=== PATIENT | female | born 1990 | race Caucasian/White ===

== ENCOUNTER 2023-10-22 23:22 | Inpatient (IN) ==
--- OUTSIDE RECORDS SUMMARY | 2023-10-22 23:27 | External Medical Summary ---
Author Name Unknown Address Unknown Organization [id number]:[facility] [place] [address] [facility] [address] Laboratory Report Ordering Provider Test Date Status ANALI ALEJANDRA 09/27/2023 13:35:37 Final Observation Date Value Abnormality Reference (Units ) Status Streptococcus agalactiae DNA [Presence] in Specimen by RYAN with probe detection 09/27/2023 13:35:37 Negative Negative Final No Group B Streptococcus det ected by culture-enhanced PCR (amplified probe).
The collection of vaginal/rectal swab specimen combinations (FDA approved specimen type) is optimal for the detection of Group B Streptococcus. Single source collection (vaginal only or rectal only) or alternate specimen sources may lead to false negative results. Performing Location [facility] [place] [address] [facility] [address]
--- OUTSIDE RECORDS SUMMARY | 2023-10-22 23:27 | External Medical Summary | Summary of Care ---
Author Name Unknown Organization [facility] Address [address] [place] [address] Phone [phone] Care Team Providers Care Quality Assurance Test Program Manager Name Role Phone Yimi Melgoza MD Primary Care Provider [phone]- [phone] Reason for Visit * Reason Comments Return Visit Encounter Details Date Type Department Care Team (Late st Contact Info) Description 09/27/2023 1:45 PM EST Office Visit Gynecology/Obstetric s [facility] [address] [place] [address] Alissa Villanueva CRNP [address] [place] [address] Supervision of other normal , antepartum*; Obesity in , antepartum; Antepartum anemia complicating ; Maternal vitamin B12 deficiency Allergies Active Allergy Reactions Criticality Noted Date Comments Amoxicillin 09/27/2001 Cephalosporins Hives,Itching 09/23/2010 Doxycycline Nausea/vomiting 04/07/2022 Penicillins 01/13/2010 documented as of this encounter (statuses as of 09/27/2023) Medications Medication Sig Dispensed Refills Start Date End Date Status + DHA 27-1 & 250 MG Oral Therapy Pack Take by mouth. 0 Active Magnesium 400 MG Oral Tablet Take by mouth. 0 Active CoQ10 200 MG Oral Capsule Take by mouth. 0 Active Riboflavin 400 MG Oral Capsule Take 1 Capsule by mouth in the morning. 0 Active Vitamin B-12 1000 MCG Oral Tablet (Cyanocobalamin)Indica tions:Antepartum anemia complicating Take 1 Tablet by mouth in the morning. 30 Tablet 3 07/26/2023 Active HM Iron Slow Release 142 (45 Fe) MG Oral Tablet Extended Release (Ferrous Sulfate ER) Take by mouth. Take 4 tablets daily 0 Active Vitamin C 250 MG Oral Tablet Chewable Take 1 Tablet by mouth in the morning. 0 Active Hospital, Clinic, or Other Facility Administered Medication Ordered Dose Route Frequency Start Date End Date Status stknypaqhn-gtcsfukxgyxcx-ketw eine 50-325-40 mg per tab (Fioricet) 1 TabletIndications:Migraine without aura and without status migrainosus, not intractable 1 Tablet OR Q4H PRN 05/18/2023 Active documented as of this encounter (statuses as of 09/27/2023) Active Problems Problem Noted Date Diagnosed Date Iron deficiency anemia 09/12/2023 Antepartum anemia complicating 023 Overview: Hgb 10.1 at 27 wks, start iron BID and B12 Maternal vitamin B12 deficiency 07/26/2023 Supervision of other normal , antepartu m 03/15/2023 De Quervain's disease (tenosynovitis) 10/30/2020 Obesity in , antepartum 04/29/2020 Overview: Class II obesity (BMI 35-39.9) - growth scan q4 weeks -Early GDM screening-- checking blood sugars rather than glucola - weekly NST starting 37w Last Assessment & Plan: Discussed importace of growth ultrasound every 4 weeks. She prefers to have her US in [facility]. S/S of preeclampsia were reviewed. Umbilical hernia 04/14/2015 LUQ abdominal pain 09/20/2011 PATELLOFEMORAL PAIN SYNDROME, LEFT 06/01/2010 Pain in limb 06/01/2010 Menstruation, irregular 03/24/2010 Estimated Date of Delivery Comme nts Yes 10/25/2023 Based on last fl nstrual period of 01/18/2023 documented as of this encounter (statuses as of 09/27/2023) Resolved Problems Problem Noted Date Diagnosed Date Resolved Date Trauma during 10/21/202004/01 Antepartum anemia complicating 09/08/2020 04/18/2023 Overview: Hgb 9.5 at 28 weeks Hgb 10.3 at 32w Subluxation of symphysis pub is during in second trimester 07/06/2020 04/18/2023 Overview: Referred to PT at 19 weeks Polyp of cervix 05/28/2020 04/18/2023 Supervision of normal first 04/29/2020 04/18/2023 Overview: O+, rubella immune Last Assessment & Plan: Flu vaccine given 06/22/20 Antoinette Stevens LPN with history of infertility 04/29/2020 04/18/2023 Overview: Used letrozole Impaired glucose in , antepartum 04/29/2020 10/20/2020 Overview: Failed early 1 hr GTT, passed 3 hr GTT Last Assessment & Plan: Reviewed negative early 3hour GTT screening. Discussed the importance of performing GDM screen again at 26-28 weeks. Abdominal pain, periumbilical 04/14/2015 04/18/2023 Vomiting 09/20/2011 07/06/2020 Overview: ICD-10 update of inactive term Headache 03/24/2010 04/18/2023 Overview: ICD-10 update of inactive term documented as of this encounter (statuses as of 09/27/2023) Immunizations Name Administration Dates Next Due COVID-19 mRNA, LNP-s, No Pre serve, 2-Dose Series (Pfizer) 01/29/2021,01/04/2021 DTaP Dipth/Tet/Acell Pertussis (Infanrix), Peds 09/10/1998 HPV Vaccine, 4-Valent 06/21/2007,04/20/2007,10/03 Hepatitis B, 0-19 yrs 09/10/1998 MMR - Measles/Mumps/Rubella Vaccine 09/10/1998,0 01/08/1994 Meningococcal Conjugate Vacc ine (Menactra/Menveo) 04/20/2007 OPV - Polio Virus Vaccine (Oral) 09/10/1998 PPD 08/01/2017 Seasonal Influenza, Quadriva lent, No Preserve, IM 06/22/2020 TD, Preservative Free 08/03/2017 TDAP (age 10 and older)(Boostrix) 10/06/2020 TDAP (age 11 and older)(Adacel) 04/26/2007 Varicella Vaccine (Chicken Pox) 06/21/2007,09/10 documented as of this encounter Social History Tobacco Use Types Packs/Day Years Used Date Smoking Tobacco: Never Smokeless Tobacco: Never Alcohol Use Standard Drinks/Week Comments Not Currently 0 (1 standard drink = 0.6 oz pur e alcohol) rare PHQ-2 Answer Date Recorded PHQ Adult Total Score 0 08/08/2023 Hunger Vital Sign Answer Date Recorded Within the past 12 months, y ou worried that your food would run out before you got the money to buy more. Never true 02/23/20 23 Within the past 12 months, t he food you bought just didn't last and you didn't have money to get more. Never true 02/22/2023 [place] Depression Scale Answer Date Recorded [place] Depression Scale Total 1 09/12/2023 The thought of harming myself has occurred to me . Never 09/12/2023 Estimated Date of Delivery Comme nts Yes 10/25/2023 Based on last me nstrual period of 01/18/2023 Sex and Gender Information Value Date Recorded Sex Assigned at Female 02/22/2023 7:54 PM EDT Gender Identity Female 02/22/2023 7:54 PM EDT Sexual Orientation Straight 03/05/2021 3: 49 PM EDT Job Start Date Occupation Industry Not on file Not on file Not on file documented as of this encounter Last Filed Vital Signs Vital Sign Reading Time Taken Comments Blood Pressure 112/70 09/27/2023 1:06 PM EST Pulse - - Temperature - - Respiratory Rate - - Oxygen Saturation - - Inhaled Oxygen Concentration - - Weight 101 kg (222 lb 9.6 oz) 09/27/2023 1:06 PM EST Height 162.6 cm (5' 4") 09/27/2023 1:06 PM EST Body Mass Index 38.21 09/27/2023 1:06 PM EST documented in this encounter Progress Notes * Alissa Villanueva CRNP - 09/27/2023 1:27 PM EST 36w0d Complaints: none. Surprised at weight gain, reassured this is ok. Feeling well overall. Iron infusions helping SOB. Has seen cardiology, has echo tomorrow. . Good FM. No contractions, bleeding, or LOF. Growth u/s today, report pending. GBS today. 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 Name of russian rubber: Isamar. To begin weekly NSTs next week. MARBE[place]A Marx documented in this encounter Nursing Notes * Isamar Cruz LPN - 09/27/2023 1:06 PM EST 36w0d GBS. Growth US done today- 57th%, MORENA 14.4cm. documented in this encounter Plan of Treatment Upcoming Encounters Date Type Department Care Team (Late st Contact Info) Description 09/28/2023 10:35 AM EST Cardiac Studies Cardiac Studies, [facility] [address] [place] [address] 10/03/2023 2:30 PM EST Hem/Onc Treatment Hematology/Oncology Treatment, [place] [address] [place] [address] Liza, Chair 8 Hem [place]c [facility] [address] [facility] [place] [address] 10/10/2023 9:45 AM EST Pharmacy Pharmacy, [place] [address] [place] [address] Clinic, [facility] [address] [place] [address] Pending Results Name Type Priority Associated Diagnoses Date /Time GROUP B STREP CULTURE/PCR Lab Routine Supervision of other normal , antepartum 09/27/2023 1:35 PM EST Health Maintenance Due Date Last Done Comments Hepatitis B (3 of 3 - 3-dose series) 11/05/1998 09/10/1998, 05/28/1997 COVID-19 Vaccine (3 - season) 2023 01/29/2021, 01/04/2021 Influenza Vaccine (FLU shot) (#1) 2023 10/06/2021, 06/22/2020, 06/22/2020 Depression Screening 08/08/2024 08/08/2023 Pap Smear 03/15/2026 03/15/2023, 04/02, 11/18/2013, Additional history exists Cervical Cancer Screening 03/15/2028 HPV/Co-Test 03/15/2028 03/15/2023 DTaP,Tdap,and Td Vaccines (9 - Td or Tdap) 10/06/2030 10/06/2020, 08/03/2017, 04/26/2007, Additional history exists MENINGOCOCCAL (MENACTRA/MENVEO) Aged Out 04/20/2007, 04/20/2007 No longer eligibl e based on patient's age to complete this topic GARDASIL-HPV IMMUNIZATION SERIES Completed 06/21/2007, 04/20/2007, 10/30/2006 Pneumococcal Vaccine: Pediatrics (0 to 5 Years) and At-Risk Patients (6 to 64 Years) Aged Out No longer eligible based on patient's age to complete this topic documented as of this encounter Medical Devices Not on filedocumented as of this encounter Visit Diagnoses Diagnosis Supervision of other normal , antepartum- Primary Obesity in , antepartum Obesity complicating , childbirth, or the puerperium, antepartum condition or complication Antepartum anemia complicating Anemia, antepartum Maternal vitamin B12 deficiency documented in this encounter Care Teams Quality Assurance Test Program Manager Relationship Specialty Start Date End Date Yimi Melgoza MD [address] [place] [address] PCP - General 02/03/10 documented as of this encounter
--- OUTSIDE RECORDS SUMMARY | 2023-10-22 23:27 | External Medical Summary | Summary of Care ---
Author Name Unknown Organization [facility] Address [address] [place] [address] Phone [phone] Care Team Providers Care Data Typist Name Role Phone Yimi Melgoza MD Primary Care Provider [phone]- [phone] Reason for Visit * Reason Onset Date Comments Appointment 09/13/2023 Encounter Details Date Type Department Care Team (Late st Contact Info) Description 09/13/2023 Telephone Hematology/Oncology Treatment, [place] [address] [place] [address] Alex Shah MD [address] [place] [address] Appointment Allergies Active Allergy Reactions Criticality Noted Date Comments Amoxicillin 09/27/2001 Cephalosporins Hives,Itching 09/23/2010 Doxycycline Nausea/vomiting 04/07/2022 Penicillins 01/13/2010 documented as of this encounter (statuses as of 09/15/2023) Medications Medication Sig Dispensed Refills Start Date [...] Route Frequency Start Date End Date Status mskokxjbpw-kvwmxkspeewgv-qdzz eine 50-325-40 mg per tab (Fioricet) 1 TabletIndications:Migraine without aura and without status migrainosus, not intractable 1 Tablet OR Q4H PRN 05/18/2023 Active documented as of this encounter (statuses as of 09/15/2023) Active Problems Problem Noted Date Diagnosed Date [...] She prefers to have her US in [facility]. S/S of preeclampsia were reviewed. Umbilical hernia 04/14/2015 LUQ abdominal pain 09/20/2011 PATELLOFEMORAL PAIN SYNDROME, LEFT 06/01/2010 Pain in limb 06/01/2010 Menstruation, irregular 03/24/2010 Estimated Date of Delivery Comme nts Yes 10/25/2023 Based on last me nstrual period of 01/18/2023 documented as of this encounter (statuses as of 09/15/2023) Resolved Problems Problem Noted Date Diagnosed Date [...] as of this encounter (statuses as of 09/15/2023) Immunizations Name Administration Dates Next Due COVID-19 mRNA, LNP-s, No Pre serve, 2-Dose Series (Pfizer) 01/29/2021,01/04/2021 DTaP Dipth/Tet/Acell Pertussis (Infanrix), Peds 09/10/1998,07/18/1994,04/01/1993,12/22,1992 HIB PRP-T, 4 dose (ActHib) 01/03/1994,,1992,10/28 HPV Vaccine, 4-Valent 06/21/2007,04/20/2007,10/03 Hepatitis B, 0-19 yrs 09/10/1998,05/28/1997 MMR - Measles/Mumps/Rubella Vaccine 09/10/1998,0 01/08/1994,01/03/1994 Meningococcal Conjugate Vacc ine (Menactra/Menveo) 04/20/2007 OPV - Polio Virus Vaccine (Oral) 998,07/18/1994,1992,10/28 PPD 08/01/2017 Seasonal Influenza, Quadriva lent, No Preserve, IM 06/22/2020 TB Rachel Test 08/02/1993 TD, Preservative Free 08/03/2017 TDAP (age 10 [...] money to get more. Never true 02/22/2023 [place] Depression Scale Answer Date Recorded [place] Depression Scale Total 1 09/12/2023 The thought [...] on file documented as of this encounter Miscellaneous Notes * Telephone Encounter - Gala Singh OSA - 09/14/2023 12:26 PM EST Patient returned call and scheduled venofer for 09/18 per her request. * Telephone Encounter - Gala Singh OSA - 09/14/2023 12:01 PM EST Called and lmom for patient. * Telephone Encounter - Ever Gleason RN - 09/14/2023 11:53 AM EST [place] plan signed. Scheduling- Please schedule patient for 2 hour appt "Venofer 10/04" (Pablo). Patient will receive oneinfusion weekly x 3 weeks. Thank you. * Telephone Encounter - Ever Gleason RN - 09/13/2023 11:17 AM EST [place] plan for IV Venofer completed. Routed for signature. Prior auth not needed for IV Venofer. Can send to scheduling once plan is signed. documented in this encounter Plan of Treatment Upcoming Encounters Date Type Department Care Team (Late st Contact Info) Description 09/15/2023 2:00 PM EST Office Visit Cardiology, [facility] [address] [place] [address] Fabian Ferreira, [address] [place] [address] 09/18/2023 1:45 PM EST Hem/Onc Treatment Hematology/Oncology Treatment, [place] [address] [place] [address] Liza Chair 5 Hem Onc [place] [address] [place] [address] 09/19/2023 10:00 AM EST Pharmacy Pharmacy, [place] [address] [place] [facility] [place] [address] Clinic, [facility] [address] [place] [address] 09/27/2023 12:45 PM EST Imaging Radiology [facility] 2nd Floor, [place] [address] [place] [address] 09/27/2023 1:45 PM EST Office Visit Gynecology/Obstetrics [facility] [address] [place] [address] Alissa Villanueva CRNP [address] [place] [address] Health Maintenance Due Date Last Done Comments Hepatitis B (3 of 3 - 3-dose series) 11/05/1998 09/10/1998, 05/28/1997 COVID-19 Vaccine ( season) 2023 01/29/2021, 01/04/2021 Influenza Vaccine (FLU [...] Not on filedocumented as of this encounter Care Teams Data Typist Relationship Specialty Start Date End Date Yimi Melgoza MD [address] [place] [address] PCP - General 02/03/10 documented as of this encounter
--- OUTSIDE RECORDS SUMMARY | 2023-10-22 23:27 | External Medical Summary | Summary of Care ---
Author Name Unknown Organization [facility] Address [address] [place] [address] Phone [phone] Care Team Providers Care Resident Athletic Trainer Name Role Phone Yimi Melgoza MD Primary Care Provider +1- [phone] Reason for Visit * Reason Comments Infusion Venofer 2/3 Encounter Details Date Type Department Care Team (Latest Contact Info) Description 09/26/2023 2:30 PM EST Hem/Onc Treatment Hematology/Oncology Treatment, [place] [address] [place] [address] Liza, Chair 7 Hem Onc [place] [address] [place] [address] Antepartum anemia complicating * Allergies Active Allergy Reactions Criticality Noted Date Comments Amoxicillin 09/27/2001 Cephalosporins Hives,Itching 09/23/2010 Doxycycline Nausea/vomiting 04/07/2022 Penicillins 01/13/2010 documented as of this encounter (statuses as of 09/26/2023) Medications Medication Sig Dispensed Refills Start Date [...] Route Frequency Start Date End Date Status nwukvramfh-slktpxeesttoh-iioq eine 50-325-40 mg per tab (Fioricet) 1 TabletIndications:Migraine without aura and without status migrainosus, not intractable 1 Tablet OR Q4H PRN 05/18/2023 Active documented as of this encounter (statuses as of 09/26/2023) Active Problems Problem Noted Date Diagnosed Date [...] She prefers to have her US in [facility]. S/S of preeclampsia were reviewed. Umbilical hernia 04/14/2015 LUQ abdominal pain 09/20/2011 PATELLOFEMORAL PAIN SYNDROME, LEFT 06/01/2010 Pain in limb 06/01/2010 Menstruation, irregular 03/24/2010 Estimated Date of Delivery Comme nts Yes 10/25/2023 Based on last me nstrual period of 01/18/2023 documented as of this encounter (statuses as of 09/26/2023) Resolved Problems Problem Noted Date Diagnosed Date [...] as of this encounter (statuses as of 09/26/2023) Immunizations Name Administration Dates Next Due COVID-19 mRNA, LNP-s, No Pre serve, 2-Dose Series (Nuubo) 01/29/2021,01/04/2021 DTaP Dipth/Tet/Acell Pertussis (Infanrix), Peds 09/10/1998 [...] money to get more. Never true 02/22/2023 [place] Depression Scale Answer Date Recorded [place] Depression Scale Total 1 09/12/2023 The thought [...] Sign Reading Time Taken Comments Blood Pressure 125/76 09/26/2023 2:48 PM EST Pulse 92 09/26/2023 2:48 PM EST Temperature 36.7 C (98 F) 09/26/2023 2:48 PM EST Respiratory Rate 18 09/26/2023 2:48 PM EST Oxygen Saturation 97% 09/26/2023 2:48 PM EST Inhaled Oxygen Concentration - - Weight - - Height - - Body Mass Index - - documented in this encounter Nursing Notes * Yamileth Sorensen RN - 09/26/2023 4:12 PM EST Safety and Risk for Injury Patient will remain free from injury. Ensure appropriate safety devices are available. Provide and maintain safe environment. Goals: Patient will remain free from injury. Possible barriers to meeting goals: ambulating with IV pole Stability of the patient: Moderately stable - low risk of patient condition declining or worsening Summary regarding today's goals: Met: pt remained free of harm today Patient tolerated treatment well without any acute issues or problems. Patient left facility in stable condition and denied any further needs. * Zandra Weaver LPN - 09/26/2023 2:48 PM EST 1435: Pt arrived for Venofer 2/3 infusion. PIV in R metacarpal. Pt tolerated well. VSS. No complaints at this time. documented in this encounter Plan of Treatment Upcoming Encounters Date Type Department Care Team (Late st Contact Info) Description 09/27/2023 12:45 PM EST Imaging Radiology [facility] 2nd Floor, [place] [address] [facility] [place] [address] 09/27/2023 1:45 PM EST Office Visit Gynecology/Obstetrics [address] [place] [address] Alissa Villanueva CRNP [address] [facility] [place] [address] 09/28/2023 10:35 AM EST Cardiac Studies Cardiac Studies, [facility] [address] [facility] [place] [address] 10/03/2023 2:30 PM EST Hem/Onc Treatment Hematology/Oncology Treatment, [place] [address] [place] [address] Liza, Chair 8 Hem Onc [place] [address] [place] [address] 10/10/2023 9:45 AM EST Pharmacy Pharmacy, [place] [address] [place] [address] Clinic, [facility] [address] [place] [address] Health Maintenance Due Date Last Done Comments Hepatitis B (3 of 3 - 3-dose series) 11/05/1998 09/10/1998, 05/28/1997 COVID-19 Vaccine (3 - 2022- season) 2023 01/29/2021, 01/04/2021 Influenza Vaccine (FLU [...] as of this encounter Visit Diagnoses Diagnosis Antepartum anemia complicating - Primary Anemia, antepartum documented in this encounter Administered Medications Active Administered Medications - up to 3 most recent administrations Medication Order MAR Action Action Date Dose Rate Site diphenhydrAMINE (Benadryl) inj 50 mg 50 mg, IV Push, ONCE PRN Other, Hypersensitivity Reaction, Starting on Mon09/26/23 at 1439, Until Mon09/27/23 at 1438, For 24 hours EPINEPHrine 1 MG/ML inj 0.3 mg 0.3 mg, Intramuscular, ONCE PRN Other, Hypersensitivity Reaction or Anaphylaxis, Starting on Mon09/26/23 at 1439, Until Mon09/27/23 at 1438, For 24 hours hEParin 100 UNIT/ML Lock Flush inj 500 Units 500 Units (5 mL), IV Lock, PRN Other, IV Flush, Starting on Mon09/26/23 at 1439, Until Mon09/27/23 at 1438, For 24 hours, Do not flush if lock, PICC, or central line not in place; IV infusing or unable to flush. Hydrocortisone Sod Suc (PF) (Solu-Cortef) inj 100 mg 100 mg, IV Push, ONCE PRN Other, Hypersensitivity Reaction, Starting on Mon09/26/23 at 1439, Until Mon09/27/23 at 1438, For 24 hours NSS infusion 500 mL, Intravenous, at 50 mL/hr, CONTINUOUS, Starting on Mon09/26/23 at 1545, Until Mon09/27/23 at 0144 Start Infusion 09/26/2023 2:39 PM EST 500 mL 50 mL/hr oxygen GAS Inhalation, OXYGEN, First dose on Mon09/26/23 at 1600, Until Discontinued, Device/Managed by: Low Flow Device, Goal SPO2 (%): 91-95, Starting Device: Nasal Cannula, Initial Flow Rate (LPM): 2, Lowest Support: Nasal Cannula: Flow 0-6 LPM. Titrate up/down by 1 LPM., Higher Support: Non-Rebreather (NRB) Mask: Minimum of 10 LPM. Titrate to maintain bag inflation., Titration Interval: Q2 minutes and as needed., Notify Provider: For sudden DECREASE in resting SPO2 to less than 85% and when escalating delivery device., Wean patient off Oxygen when the oxygen saturation is greater than or equal to 93% sodium chloride 0.9 % flush central line 10 mL 10 mL, IV Push, PRN Other, IV Flush, Starting on Mon09/26/23 at 1439, Until Mon09/27/23 at 1438, For 24 hours, Do not flush if lock, PICC, or central line not in place; IV infusing or unable to flush. Inactive Administered Medications - up to 3 most recent administrations Medication Order MAR Action Action Date Dose Rate Site Iron Sucrose (Venofer) 300 mg in NSS 250 mL ivpb 300 mg, IV Piggyback, ONCE, 1 dose, On Mon09/26/23 at 1615, Administer over 90 Minutes Start Infusion 09/26/2023 2:40 PM EST 300 mg 166.67 mL/hr documented in this encounter Care Teams Resident Athletic Trainer Relationship Specialty Start Date End Date Yimi Melgoza MD [address] [place] [address] PCP - General 02/03/10 documented as of this encounter
--- OUTSIDE RECORDS SUMMARY | 2023-10-22 23:27 | External Medical Summary | Summary of Care ---
Author Name Unknown Organization [facility] Address [address] [place] [address] Phone [phone] Care Team Providers Care Lead Designer Name Role Phone Yimi Melgoza MD Primary Care Provider +1- [phone] Reason for Visit * Reason Onset Date Comments Anemia Follow-Up 10/11/2023 Encounter Details Date Type Department Care Team (Late st Contact Info) Description 10/11/2023 10:00 AM [facility] Pharmacy Pharmacy, [place] [address] [place] [address] Clinic, Anemia [address] [place] [address] Iron deficiency anemia, unspecified iron deficiency anemia type* Allergies Active Allergy Reactions Criticality Noted Date Comments Amoxicillin 09/27/2001 Cephalosporins Hives,Itching 09/23/2010 Doxycycline Nausea/vomiting 04/07/2022 Penicillins 01/13/2010 documented as of this encounter (statuses as of 10/11/2023) Medications Medication Sig Dispensed Refills Start Date [...] Route Frequency Start Date End Date Status qqywppsmtm-smvrblzycvdog-jxgo eine 50-325-40 mg per tab (Fioricet) 1 TabletIndications:Migraine without aura and without status migrainosus, not intractable 1 Tablet OR Q4H PRN 05/18/2023 Active documented as of this encounter (statuses as of 10/11/2023) Active Problems Problem Noted Date Diagnosed Date [...] She prefers to have her US in [facility]. S/S of preeclampsia were reviewed. Umbilical hernia 04/14/2015 LUQ abdominal pain 09/20/2011 PATELLOFEMORAL PAIN SYNDROME, LEFT 06/01/2010 Pain in limb 06/01/2010 Menstruation, irregular 03/24/2010 Estimated Date of Delivery Comme nts Yes 10/25/2023 Based on last me nstrual period of 01/18/2023 documented as of this encounter (statuses as of 10/11/2023) Resolved Problems Problem Noted Date Diagnosed Date [...] as of this encounter (statuses as of 10/11/2023) Immunizations Name Administration Dates Next Due COVID-19 mRNA, LNP-s, No Pre serve, 2-Dose Series (Medcurrent) 01/29/2021,01/04/2021 DTaP Dipth/Tet/Acell Pertussis (Infanrix), Peds 09/10/1998 [...] money to get more. Never true 02/22/2023 [place] Depression Scale Answer Date Recorded [place] Depression Scale Total 1 09/12/2023 The thought [...] on file documented as of this encounter Progress Notes * Jaimie Eugene, [facility] - 10/11/2023 3:24 PM EST Patient Phone Numbers Call to patient. Patient received Venofer 300 mg x 3 on 09/18, 09/26 and 10/03. LMOVM. GA: 38w0d Estimated Date of Delivery: 10/25/23 Given proximity to patient's due date, will not repeat any additional lab work. Anemia Clinic will sign off. Thank you for allowing us to participate in the care of this patient. Thanks, Jaimie Eugene [facility] Clinical Pharmacist [facility] Anemia Clinic (P: [phone]) 10/11/2023 3:24 PM documented in this encounter Plan of Treatment Upcoming Encounters Date Type Department Care Team (Late st Contact Info) Description 10/17/2023 1:45 PM EST Office Visit Gynecology/Obstetrics [facility] [address] [place] [address] Alissa Villanueva CRNP [address] [place] [address] Jacob, Non Stress Tests [facility] [address] [place] [address] 10/23/2023 9:45 AM EST Office Visit Gynecology/Obstetrics [facility] [address] [place] [address] Alissa Villanueva CRNP [address] [place] [address] Jacob Non Stress Tests Kenn [address] [place] [address] Health Maintenance Due Date Last Done Comments Hepatitis B (3 of 3 - 3-dose series) 11/05/1998 09/10/1998, 05/28/1997 COVID-19 Vaccine ( season) 2023 01/29/2021, 01/04/2021 Influenza Vaccine (FLU shot) (#1) 2023 10/06/2021, 06/22/2020, 06/22/2020 Depression Screening 08/08/2024 08/08/2023 Pap Smear 03/15/2026 03/15/2023, 0706/2020, 11/18/2013, Additional history exists Cervical Cancer Screening [...] as of this encounter Visit Diagnoses Diagnosis Iron deficiency anemia, unspecified iron deficiency anemia type- Primary documented in this encounter Care Teams Lead Designer Relationship Specialty Start Date End Date Yimi Melgoza MD [address] [place] [address] PCP - General 02/03/10 documented as of this encounter
--- OUTSIDE RECORDS SUMMARY | 2023-10-22 23:27 | External Medical Summary | Summary of Care ---
Author Name Unknown Organization [facility] Address [address] [place] [address] Phone [phone] Care Team Providers Care Shrimp Boat Captain Name Role Phone Yimi Melgoza MD Primary Care Provider +1- [phone] Reason for Visit * Reason Comments Return Visit Non Stress Test Encounter Details Date Type Department Care Team (Late st Contact Info) Description 10/05/2023 10:30 AM EST Office Visit Gynecology/Obstetric s [facility] [address] [facility] [place] [address] Luann Ayoub CRNP [address] [facility] [place] [address] Jacob Non Stress Tests Kenn [address] [place] [address] Supervision of other normal , antepartum*; Obesity in , antepartum; Antepartum anemia complicating ; Maternal vitamin B12 deficiency Allergies Active Allergy Reactions Criticality Noted Date Comments Amoxicillin 09/27/2001 Cephalosporins Hives,Itching 09/23/2010 Doxycycline Nausea/vomiting 04/07/2022 Penicillins 01/13/2010 documented as of this encounter (statuses as of 10/05/2023) Medications Medication Sig Dispensed Refills Start Date [...] Route Frequency Start Date End Date Status luvpkiuwjg-sukepxpebhrzn-hwgo eine 50-325-40 mg per tab (Fioricet) 1 TabletIndications:Migraine without aura and without status migrainosus, not intractable 1 Tablet OR Q4H PRN 05/18/2023 Active documented as of this encounter (statuses as of 10/05/2023) Active Problems Problem Noted Date Diagnosed Date [...] She prefers to have her US in [facility]. S/S of preeclampsia were reviewed. Umbilical hernia 04/14/2015 LUQ abdominal pain 09/20/2011 PATELLOFEMORAL PAIN SYNDROME, LEFT 06/01/2010 Pain in limb 06/01/2010 Menstruation, irregular 03/24/2010 Estimated Date of Delivery Comme nts Yes 10/25/2023 Based on last fl nstrual period of 01/18/2023 documented as of this encounter (statuses as of 10/05/2023) Resolved Problems Problem Noted Date Diagnosed Date [...] as of this encounter (statuses as of 10/05/2023) Immunizations Name Administration Dates Next Due COVID-19 mRNA, LNP-s, No Pre serve, 2-Dose Series (Impinj) 01/29/2021,01/04/2021 DTaP Dipth/Tet/Acell Pertussis (Infanrix), Peds 09/10/1998 [...] money to get more. Never true 02/22/2023 [place] Depression Scale Answer Date Recorded [place] Depression Scale Total 1 09/12/2023 The thought [...] Sign Reading Time Taken Comments Blood Pressure - - Pulse - - Temperature - - Respiratory Rate - - Oxygen Saturation - - Inhaled Oxygen Concentration - - Weight 100.9 kg (222 lb 6.4 oz) 01/04/2 024 10:27 AM EST Height - - Body Mass Index 38.17 09/27/2023 1:06 PM EST documented in this encounter Progress Notes * Luann Ayoub CRNP - 10/05/2023 10:18 AM EST 37w1d Baby moving well. Some occasional tightening, no regular ctx. Denies leaking/bleeding. Growth scan 09/27: EFW 57th %ile, vertex, normal MORENA. Receiving iron infusions for anemia, these have helped her SOB. Had a normal cardiology evaluation. Weekly visits and NSTs. MARBELLA Chavira ASSESSMENT assessment with Non-stress Test completed on 10/05/2023 at 37w1d gestation for indication of obesity heart baseline: 135 bpm Variability: Moderate Decelerations: absent Accelerations: present Contractions: Present q4-5 mins, mild per pt NST start time: 1022 NST stop time: 1058 NST strip reviewed, interpreted, and approved by OB provider, MARBELLA Chavira . NST strip stored in clinic storage file documented in this encounter Plan of Treatment Upcoming Encounters Date Type Department Care Team (Late st Contact Info) Description 10/10/2023 9:45 AM EST Pharmacy Pharmacy, [place] [address] [place] [address] Clinic, Anemia [address] [place] [address] 10/10/2023 11:15 AM EST Office Visit Gynecology/Obstetrics [facility] [address] [place] [address] Luann Ayoub CRNP [address] [place] [address] Clara James Stress Tests Kenn [address] [place] [address] 10/17/2023 1:45 PM EST Office Visit Gynecology/Obstetrics Phil [facility] [address] [place] [address] Alissa Villanueva CRNP [address] [place] [address] Jacob, Non Stress Tests Kenn [address] [place] [address] 10/23/2023 9:45 AM EST Office Visit Gynecology/Obstetrics Phil [facility] [address] [place] [address] Alissa Villanueva CRNP [address] [place] [address] Jacob, Non Stress Tests Kenn [address] [place] [address] Health Maintenance Due Date Last Done Comments [...] deficiency documented in this encounter Care Teams Shrimp Boat Captain Relationship Specialty Start Date End Date Yimi Melgoza MD [address] [place] [address] PCP - General 02/03/10 documented as of this encounter
--- OUTSIDE RECORDS SUMMARY | 2023-10-22 23:27 | External Medical Summary | Summary of Care ---
Author Name Unknown Organization [facility] Address [address] [place] [address] Phone [phone] Care Team Providers Care Coach Wirer Name Role Phone Yimi Melgoza MD Primary Care Provider +1- [phone] Reason for Visit * Reason Onset Date Comments Appointment 09/13/2023 Encounter Details Date Type Department Care Team (Late st Contact Info) Description 09/13/2023 Telephone Hematology/Oncology Treatment, [place] [address] [place] [address] Alex Shah MD [address] [place] [address] Appointment Allergies Active Allergy Reactions Criticality Noted Date Comments Amoxicillin 09/27/2001 Cephalosporins Hives,Itching 09/23/2010 Doxycycline Nausea/vomiting 04/07/2022 Penicillins 01/13/2010 documented as of this encounter (statuses as of 09/14/2023) Medications Medication Sig Dispensed Refills Start Date [...] Route Frequency Start Date End Date Status hlugjrlfuc-bhqoeeoynznzj-djgu eine 50-325-40 mg per tab (Fioricet) 1 TabletIndications:Migraine without aura and without status migrainosus, not intractable 1 Tablet OR Q4H PRN 05/18/2023 Active documented as of this encounter (statuses as of 09/14/2023) Active Problems Problem Noted Date Diagnosed Date [...] She prefers to have her US in [facility]. S/S of preeclampsia were reviewed. Umbilical hernia 04/14/2015 LUQ abdominal pain 09/20/2011 PATELLOFEMORAL PAIN SYNDROME, LEFT 06/01/2010 Pain in limb 06/01/2010 Menstruation, irregular 03/24/2010 Estimated Date of Delivery Comme nts Yes 10/25/2023 Based on last me nstrual period of 01/18/2023 documented as of this encounter (statuses as of 09/14/2023) Resolved Problems Problem Noted Date Diagnosed Date [...] as of this encounter (statuses as of 09/14/2023) Immunizations Name Administration Dates Next Due COVID-19 [...] money to get more. Never true 02/22/2023 [place] Depression Scale Answer Date Recorded [place] Depression Scale Total 1 09/12/2023 The thought [...] Gleason RN - 09/14/2023 11:53 AM EST [place] plan signed. Scheduling- Please schedule patient for 2 hour appt "Venofer 10/04" (Pablo). Patient will receive oneinfusion weekly x 3 weeks. Thank you. * Telephone Encounter - Ever Gleason RN - 09/13/2023 11:17 AM EST [place] plan for IV Venofer completed. Routed for signature. Prior auth not needed for IV Venofer. Can send to scheduling once plan is signed. documented in this encounter Plan of Treatment Upcoming Encounters Date Type Department Care Team (Late st Contact Info) Description 09/15/2023 2:00 PM EST Office Visit Cardiology, [facility] [address] [place] [address] Fabian Ferreira, [address] [place] [address] 09/18/2023 1:45 PM EST Hem/Onc Treatment Hematology/Oncology Treatment, [place] [address] [place] [address] Liza Chair 5 Hem Onc [place] [address] [place] [address] 09/19/2023 10:00 AM EST Pharmacy Pharmacy, [place] [address] [place] [facility] [place] [address] Clinic, [facility] [place] [address] [place] [address] 09/27/2023 12:45 PM EST Imaging Radiology [facility] 2nd Floor, [place] [address] [place] [address] 09/27/2023 1:45 PM EST Office Visit Gynecology/Obstetrics [facility] [address] [place] [address] Alissa Villanueva CRNP [address] [place] [address] Health Maintenance Due Date Last Done Comments [...] filedocumented as of this encounter Care Teams Coach Wirer Relationship Specialty Start Date End Date Yimi Melgoza MD [address] [place] [address] PCP - General 02/03/10 documented as of this encounter
--- OUTSIDE RECORDS SUMMARY | 2023-10-22 23:27 | External Medical Summary | Summary of Care ---
Author Name Unknown Organization [facility] Address [address] [place] [address] Phone [phone] Care Team Providers Care Customer Security Clerk Name Role Phone Yimi Melgoza MD Primary Care Provider +1- [phone] Reason for Visit * Reason Onset Date Comments Anemia Follow-Up 09/19/2023 Encounter Details Date Type Department Care Team (Late st Contact Info) Description 09/19/2023 10:00 AM [facility] Pharmacy Pharmacy, [place] [address] [place] [address] Clinic, Anemia [address] [place] [address] Iron deficiency anemia, unspecified iron deficiency anemia type* Allergies Active Allergy Reactions Criticality Noted Date Comments Amoxicillin 09/27/2001 Cephalosporins Hives,Itching 09/23/2010 Doxycycline Nausea/vomiting 04/07/2022 Penicillins 01/13/2010 documented as of this encounter (statuses as of 09/19/2023) Medications Medication Sig Dispensed Refills Start Date [...] Route Frequency Start Date End Date Status sprhmctkbk-oktcgejaxdkjt-ojal eine 50-325-40 mg per tab (Fioricet) 1 TabletIndications:Migraine without aura and without status migrainosus, not intractable 1 Tablet OR Q4H PRN 05/18/2023 Active documented as of this encounter (statuses as of 09/19/2023) Active Problems Problem Noted Date Diagnosed Date [...] She prefers to have her US in [facility]. S/S of preeclampsia were reviewed. Umbilical hernia 04/14/2015 LUQ abdominal pain 09/20/2011 PATELLOFEMORAL PAIN SYNDROME, LEFT 06/01/2010 Pain in limb 06/01/2010 Menstruation, irregular 03/24/2010 Estimated Date of Delivery Comme nts Yes 10/25/2023 Based on last me nstrual period of 01/18/2023 documented as of this encounter (statuses as of 09/19/2023) Resolved Problems Problem Noted Date Diagnosed Date [...] as of this encounter (statuses as of 09/19/2023) Immunizations Name Administration Dates Next Due COVID-19 mRNA, LNP-s, No Pre serve, 2-Dose Series (Koemei) 01/29/2021,01/04/2021 DTaP Dipth/Tet/Acell Pertussis (Infanrix), Peds 09/10/1998 [...] money to get more. Never true 02/22/2023 [place] Depression Scale Answer Date Recorded [place] Depression Scale Total 1 09/12/2023 The thought [...] this encounter Progress Notes * Jaimie Eugene, [facility] - 09/19/2023 9:28 AM EST Patient received first dose of Venofer 300 mg x 3 repletion series on 09/18 and appeared to have tolerated it without issue. Next scheduled: 09/26 Scheduled to be completed: 10/03 GA: 34w6d Estimated Date of Delivery: 10/25/23 Follow-up after completion of series to ensure all doses are administered prior to delivery. Anemia Clinic will continue to follow. Thank you for allowing us to participate in the care of thispatient. Thanks, Jaimie Eugene [facility] Clinical Pharmacist [facility] Anemia Clinic (P: [phone]) 09/19/2023 9:28 AM documented in this encounter Plan of Treatment Upcoming Encounters Date Type Department Care Team (Late st Contact Info) Description 09/26/2023 2:30 PM EST Hem/Onc Treatment Hematology/Oncology Treatment, [place] [facility] [address] Liza, Chair 11 Hem Onc [address] [place] [address] 09/27/2023 12:45 PM EST [facility] [address] [facility] [place] [address] 09/27/2023 1:45 PM EST Office Visit Gynecology/Obstetrics [facility] [address] [place] [address] Alissa Villanueva CRNP 132 [facility] [place] [address] 09/28/2023 10:35 AM EST Cardiac Studies Cardiac Studies, [facility] [address] [place] [address] 10/03/2023 2:30 PM EST Hem/Onc Treatment Hematology/Oncology [address], [address] [address] Liza, Chair 8 Hem Onc [address] [place] [address] 10/10/2023 9:45 AM EST Pharmacy Pharmacy, [place] [address] [place], [place] [address] Clinic, Anemia [address] [place] [address] Health Maintenance Due Date Last Done Comments Hepatitis B (3 of 3 - 3-dose series) 11/05/1998 09/10/1998, 05/28/1997 COVID-19 Vaccine (3 - 2022-24 season) 2023 01/29/2021, 01/04/2021 Influenza Vaccine (FLU [...] Primary documented in this encounter Care Teams Customer Security Clerk Relationship Specialty Start Date End Date Yimi Melgoza MD [address] [place] [facility] [place] [address] PCP - General 02/03/10 documented as of this encounter
--- OUTSIDE RECORDS SUMMARY | 2023-10-22 23:27 | External Medical Summary | Summary of Care ---
Author Name Unknown Organization [facility] Address [address] [place] [address] Phone [phone] Care Team Providers Care Personal Service Representative Name Role Phone Yimi Melgoza MD Primary Care Provider +1- [phone] Reason for Visit * Reason Comments Return Visit Encounter Details Date Type Department Care Team (Late st Contact Info) Description 09/27/2023 1:45 PM EST Office Visit Gynecology/Obstetric s [facility] [address] [place] [address] Alissa Villanueva CRNP [address] [place] [address] Supervision of other normal , antepartum*; Obesity [...] Route Frequency Start Date End Date Status yvovyfsjbp-kbcomwepqdlxb-mecd eine 50-325-40 mg per tab (Fioricet) 1 [...] She prefers to have her US in [facility]. S/S of preeclampsia were reviewed. Umbilical hernia 04/14/2015 LUQ abdominal pain 09/20/2011 PATELLOFEMORAL PAIN SYNDROME, LEFT 06/01/2010 Pain in limb 06/01/2010 Menstruation, irregular 03/24/2010 Estimated Date of Delivery Comme nts Yes 10/25/2023 Based on last la nstrual period of 01/18/2023 documented as of [...] money to get more. Never true 02/22/2023 [place] Depression Scale Answer Date Recorded [place] Depression Scale Total 1 09/12/2023 The thought [...] Growth u/s today, report pending. GBS today. Storekeeper Engineering Documentation Provider requested pellet mill operator. Name of pellet mill operator: Isamar. To begin weekly NSTs next week. [place]BELL[place] Marx documented in this encounter Nursing Notes * Isamar Cruz LPN - 09/27/2023 1:06 PM EST 36w0d GBS. Growth US done today- 57th%, MORENA 14.4cm. documented in this encounter Plan of Treatment Upcoming Encounters Date Type Department Care Team (Late st Contact Info) Description 09/28/2023 10:35 AM EST Cardiac Studies Cardiac Studies, [place] [address] [facility] [place] [address] 10/03/2023 2:30 PM EST Hem/Onc Treatment Hematology/Oncology Treatment, [place] [address] [place] [address] Liza, Chair 8 Hem Onc [facility] [address] [facility] [address] 10/05/2023 11:45 AM EST Office Visit Gynecology/Obstetrics Phil [facility] [address] [facility] [place] [address] Alissa Villanueva CRNP 132 [facility] [place] [address] James, Non Stress Tests Kenn [address] [place] [address] 10/10/2023 9:45 AM EST Pharmacy Pharmacy, [place] [address] [place] [address] Clinic, [facility] [address] [place] [facility] [place] [address] 10/10/2023 11:15 AM EST Office Visit Gynecology/Obstetrics [facility] [address] [place] [address] Luann Ayoub CRNP [address] [place] [address] Jacob Non Stress Tests Kenn [address] [place] [address] 10/17/2023 1:45 PM EST Office Visit Gynecology/Obstetrics [facility] [address] [place] [address] Alissa Villanueva CRNP [address] [place] [address] Jacob Non Stress Tests Kenn [address] [place] [address] 10/23/2023 9:45 AM EST Office Visit Gynecology/Obstetrics [facility] [address] [place] [address] Alissa Villanueva CRNP [address] [place] [address] Jacob, Non Stress Tests Kenn [address] [place] [address] Pending Results Name Type Priority Associated Diagnoses [...] deficiency documented in this encounter Care Teams Personal Service Representative Relationship Specialty Start Date End Date Yimi Melgoza MD [address] [place] [address] PCP - General 02/03/10 documented as of this encounter
--- OUTSIDE RECORDS SUMMARY | 2023-10-22 23:27 | External Medical Summary | Summary of Care ---
Author Name Unknown Organization [facility] Address [address] [place] [address] Phone [phone] Care Team Providers Care Inspector Outside Steam Distribution Name Role Phone Yimi Melgoza MD Primary Care Provider +1- [phone] Reason for Referral * Precert (Within 10 days (routine)) - Closed Specialty Diagnoses / Procedures Referred By Contac t Referred To Contact Cardiac Studies Diagnoses SOB (shortness of breath) Procedures ECHO, COMPLETE (2D), TRANS-THORACIC Fabian Ferreira DO [address] [place] [address] Referral ID Status Reason Start Date Expiration Date V isits Requested Visits Authorized [id number] Closed Precert 09/15/2023 10/01/2023 999 1 Reason for Visit * Reason Comments Follow Up * Evaluate & Treat - Unlimited Visits (Within 10 days (routine)) - Pending Review Specialty Diagnoses / Procedures Referred By Contact Referred To Contact Cardiovascular Medicine / Cardiology Diagnoses Murmur, cardiac Shortness of breath Backer, MARBELLA Leonard [address] [place] [address] Referral ID Status Reason Start Date Expiration Date Visits Requested Visits Authorized [id number] Pending Review Specialty Services Required 3 [phone] Encounter Details Date Type Department Care Team (Late st Contact Info) Description 09/15/2023 2:00 PM EST Office Visit Cardiology, [facility] [address] [place] [address] Fabian Ferreira, DO [address] [place] [address] SOB (shortness of breath)* Allergies Active Allergy Reactions Criticality Noted Date Comments Amoxicillin 09/27/2001 Cephalosporins Hives,Itching 09/23/2010 Doxycycline Nausea/vomiting 04/07/2022 Penicillins 01/13/2010 documented as of this encounter (statuses as of 10/10/2023) Medications Medication Sig Dispensed Refills Start Date [...] Route Frequency Start Date End Date Status okyuklfntb-oyhhqhdrnmbov-wgwn eine 50-325-40 mg per tab (Fioricet) 1 TabletIndications:Migraine without aura and without status migrainosus, not intractable 1 Tablet OR Q4H PRN 05/18/2023 Active documented as of this encounter (statuses as of 10/10/2023) Active Problems Problem Noted Date Diagnosed Date [...] She prefers to have her US in [facility]. S/S of preeclampsia were reviewed. Umbilical hernia 04/14/2015 LUQ abdominal pain 09/20/2011 PATELLOFEMORAL PAIN SYNDROME, LEFT 06/01/2010 Pain in limb 06/01/2010 Menstruation, irregular 03/24/2010 Estimated Date of Delivery Comme nts Yes 10/25/2023 Based on last me nstrual period of 01/18/2023 documented as of this encounter (statuses as of 10/10/2023) Resolved Problems Problem Noted Date Diagnosed Date [...] as of this encounter (statuses as of 10/10/2023) Immunizations Name Administration Dates Next Due COVID-19 mRNA, LNP-s, No Pre serve, 2-Dose Series ([employer]) 01/29/2021,01/04/2021 DTaP Dipth/Tet/Acell Pertussis (Infanrix), Peds 09/10/1998 [...] Date Smoking Tobacco: Never Smokeless Tobacco: Never Tobacco Cessation:Counseling Given: Not Answered Alcohol Use Standard Drinks/Week Comments Not Currently [...] money to get more. Never true 02/22/2023 [place] Depression Scale Answer Date Recorded [place] Depression Scale Total 1 09/12/2023 The thought [...] Sign Reading Time Taken Comments Blood Pressure 102/68 09/15/2023 1:47 PM EST Pulse 104 09/15/2023 1:47 PM EST Temperature - - Respiratory Rate - - Oxygen Saturation 98% 09/15/2023 1:47 PM EST Inhaled Oxygen Concentration - - Weight 98.9 kg (218 lb) 09/15/2023 1:47 PM EST Height - - Body Mass Index 37.42 08/25/2023 3:08 PM EST documented in this encounter Progress Notes * Fabian Ferreira DO - 09/15/2023 1:57 PM EST Cardiology Consultation Reason for consult: Murmur, shortness of breath. Referring provider: Luann TYSON PCP: Dr. Yimi Melgoza History of Present Illness: 33 year old female, 34 weeks , presents for evaluation of shortness of breath and heart murmur. Referred by obstetrics. Patient generally feeling well on a day-to-day basis. Diagnosed with progressive anemia throughout her . Treated with oral B12 supplements and iron, however, most recent hemoglobin has dropped to 9.7 grams/deciliter. Reports history of anemia during her 1st however, adequately supplemented with iron during that . Currently scheduled for an IV iron infusion. Denies any signs/symptoms of GI/ blood loss. Denies any exertional chest pain or unusual shortness of breath. Notes intermittent episodes of dyspnea and tightness in my lungs occurring at rest when seated or supine. Most recent episode occurred when lying on her left side. Pulse oximeter has dropped as low as 90% however generally returns to 98- 99% within 1 minute. Unable to reproduce symptoms with any exertional activities. Denies lightheadedness, dizziness, syncope, or near syncope. No edema, orthopnea, or PND. Reports elevated heart rates up to 100 beats per minute during symptoms. Denies any other issues during her 1st . Specifically no eclampsia, preeclampsia, or hypertension. ECG: Normal sinus rhythm with sinus arrhythmia, normal ECG. Past Medical History: Patient Active Problem List Diagnosis Code Menstruation, irregular N92.6 PATELLOFEMORAL PAIN SYNDROME, LEFT M25.569 Pain in limb M79.609 LUQ abdominal pain R10.12 Umbilical hernia K42.9 Obesity in , antepartum O99.210 De Quervain's disease (tenosynovitis) M65.4 Supervision of other normal , antepartum Z34.80 Antepartum anemia complicating O99.019 Maternal vitamin B12 deficiency O99.280, E53.8 Iron deficiency anemia D50.9 Past Surgical History: Procedure Laterality Date KNEE ARTHROSCOPY/SURGERY age 17 Family History: Denies family history of premature coronary disease or sudden cardiac . Family History Problem Relation Age of Onset Other (Other) Mother menorrhagia, had ablation Diabetes Grandmother (Maternal) Stroke Grandmother (Maternal) Hypertension Grandmother (Paternal) Cancer Grandfather (Paternal) lung ca Family Status Relation Status Mo (Not Specified) MGMA (Not Specified) PGMA (Not Specified) PGFA (Not Specified) Social History: Lifelong nonsmoker. Social History Socioeconomic History Marital status: Spouse name: Not on file Number of children: Not on file Years of education: Not on file Highest education level: Not on file Occupational History Employer: [employer] Prob[employer] Tobacco Use Smoking status: Never Smokeless tobacco: Never Vaping Use Vaping Use: Never used Substance and Sexual Activity Alcohol use: Not Currently Comment: rare Drug use: No Comment: medical marijuna Sexual activity: Yes Partners: Male Other Topics Concern Not on file Social History Narrative Not on file Social Determinants of Health Financial Resource Strain: Not on file Food Insecurity: No Food Insecurity (02/22/2023) Hunger Vital Sign Worried About Running Out of Food in the Last Year: Never true Ran Out of Food in the Last Year: Never true Transportation Needs: Not on file Physical Activity: Not on file Stress: Not on file Social Connections: Not on file Intimate Partner Violence: Not on file Housing Stability: Not on file Social History Social History Narrative Not on file ROS: All others negative other than those noted in the HPI. Review of patient's allergies indicates: Allergen Reactions Amoxicillin Cephalosporins Hives and Itching Doxycycline Nausea/vomiting Penicillins Current Outpatient Medications Medication Sig Dispense Refill + DHA 27-1 & 250 MG Oral Therapy Pack Take by mouth. Magnesium 400 MG Oral Tablet Take by mouth. CoQ10 200 MG Oral Capsule Take by mouth. Riboflavin 400 MG Oral Capsule Take 1 Capsule by mouth in the morning. Vitamin B-12 1000 MCG Oral Tablet (Cyanocobalamin) Take 1 Tablet by mouth in the morning. 30 Tablet3 HM Iron Slow Release 142 (45 Fe) MG Oral Tablet Extended Release (Ferrous Sulfate ER) Take by mouth. Take 4 tablets daily Vitamin C 250 MG Oral Tablet Chewable Take 1 Tablet by mouth in the morning. Current Facility-Administered Medications Medication Dose Route Frequency Provider Last Rate Last Admin atdtwasrqr-tkdomehzkplcb-dpwnwipr 50-325-40 mg per tab (Fioricet) 1 Tablet 1 Tablet Oral Q4H PRN Alex Shah MD OBJECTIVE/PHYSICAL EXAMINATION: BP 102/68 | Pulse 104 | Wt 98.9 kg (218 lb) | LMP 01/18/2023 | SpO2 98% | BMI 37.42 kg/m | BSA 2.11 m General: NAD, AAO x3, well nourished. HEENT: Normocephalic. Atraumatic. Conjunctiva pink, no scleral icterus. No carotid bruits, the carotid upstrokes are brisk. No JVD. No HJR Heart: Regular normal S-1 and S-2 no S-3 or S-4 gallop. Soft, 1/6 systolic murmur heard best at the left 2nd intercostal space (pulmonic area). PMI is not displaced. No RV heave. Lungs: Clear bilateral without rales , rhonchi, or wheeze. Abdomen: Normal bowel sounds. Soft. Nontender. No masses or organomegaly. No abdominal bruits. Extremities: No clubbing, cyanosis, or edema. Pulses: radial=2/4, Dorsalis pedis =2/4, posterior tibial=2/4. Neuro: No focal deficits. IMPRESSION: 1. 33-year-old female presents for evaluation of shortness of breath and reduced SAO2 at 34 weeks' gestation. Normal ECG with physiologic vital signs noted. Symptoms related to anemia. 2. Soft systolic murmur in pulmonic area likely normal in setting of and increased plasmavolume. RECOMMENDATIONS/PLAN: Echo, complete (2d), trans-thoracic Ekg I had a long discussion with the patient regarding her symptoms and intermittent shortness of breath. I suspect secondary to symptomatic anemia. Consider hematology evaluation for further guidance. Iwill proceed with resting 2D transthoracic echocardiogram to exclude underlying structural heart disease which I believe is less likely. The soft systolic murmur auscultated on exam does not appear pathologic and likely accentuated due to underlying anemia. All questions answered to patient's satisfaction. Thank you for allowing me to participate in the care of your patient. Fabian Ferreira DO, FACC Associate Cardiology - [facility] documented in this encounter Procedure Notes * Charlie Rosen DO - 09/15/2023 1:53 PM ESTAssociated Order(s): EKG REASON FOR STUDY: routine CONCLUSIONS: Normal sinus rhythm with sinus arrhythmia Normal ECG No previous ECGs available Ventricular Rate: 88 Atrial Rate: 88 SC Interval: 124 QRS Duration: 88 QT/QTc: 354/428 ms P-R-T Holmes: 29 : 45 : 29 degrees documented in this encounter Nursing Notes * Karen Weiner CMA - 09/15/2023 1:44 PM EST Examination Room:11 Name: Shaista Rogers Date of : (1990) Reason for Visit: new pt Interim Hospitalization(s): none Problems/Concerns: denied Chest Pain/SOB: SOB denied, chest pain [facility] is a way you can talk to your provider online through e-mail. Would you like to sign up? I can activate it for you? ALREADY ACTIVE Patient was instructed to not get up on the exam table until directed and assisted by their provider; patient is to remain seated in the chair/ wheelchair/ exam table for fall prevention and safety reasons. Patient is aware to have assistance to step down off exam table with personnel. Patient voiced full comprehension of instructions. documented in this encounter Plan of Treatment Upcoming Encounters Date Type Department Care Team (Late st Contact Info) Description 10/11/2023 10:00 AM EST Pharmacy Pharmacy, [place] [address] [place] [address] Clinic, [place] [address] [place] [address] 10/17/2023 1:45 PM EST Office Visit Gynecology/Obstetrics [facility] [address] [place] [address] Alissa Villanueva CRNP [address] [place] [address] Jacob, Non Stress Tests Kenn [address] [place] [address] 10/23/2023 9:45 AM EST Office Visit Gynecology/Obstetrics Phil James [address] [place] [address] Alissa Villanueva CRNP [address] [place] [address] Jacob, Non Stress Tests Kenn [address] [place] [address] Health Maintenance Due Date Last Done Comments Hepatitis B (3 of 3 - 3-dose series) 11/05/1998 09/10/1998, 05/28/1997 COVID-19 Vaccine (2022- season) 2023 01/29/2021, 01/04/2021 Influenza Vaccine (FLU [...] Not on filedocumented as of this encounter Procedures Procedure Name Priority Date/Time Associated Diagnosis Comments SC ECG ROUTINE ECG W/LEAST 12 LDS W/I&R Routine 09/15/2023 1:53 PM EST SOB (shortness of breath) documented in this encounter Results * ECHO, COMPLETE (2D), TRANS-THORACIC (09/28/2023 12:12 PM EST) LEFT VENTRICULAR EJECTION FRACTION 55 % [facility] 09/28/2023 10:3 6 AM EST Fabian Ferreira DO ECHOCARDIOLOGY [facility] * EKG (09/15/2023 1:53 PM EST) 09/15/2023 1:53 PM EST Narrative Procedure Note Charlie Rosen DO - 09/15/2023 1:53 PM EST REASON FOR STUDY: routine CONCLUSIONS: Normal sinus rhythm with sinus arrhythmia Normal ECG No previous ECGs available Ventricular Rate: 88 Atrial Rate: 88 SC Interval: 124 QRS Duration: 88 QT/QTc: 354/428 ms P-R-T Holmes: 29 : 45 : 29 degrees Fabian Ferreira DO EKG [facility] documented in this encounter Visit Diagnoses Diagnosis SOB (shortness of breath)- Primary Shortness of breath documented in this encounter Care Teams Inspector Outside Steam Distribution Relationship Specialty Start Date End Date Yimi Melgoza MD [address] [place] [address] PCP - General 02/03/10 documented as of this encounter"
--- OUTSIDE RECORDS SUMMARY | 2023-10-22 23:27 | External Medical Summary | Summary of Care ---
Author Name Unknown Organization [facility] Address [address] [place] [address] Phone [phone] Care Team Providers Care Supervisor Quality Control Name Role Phone Yimi Melgoza MD Primary Care Provider +1- [phone] Reason for Visit * Reason Comments IV Therapy Venofer. Encounter Details Date Type Department Care Team (Latest Contact Info) Description 09/18/2023 1:45 PM EST Hem/Onc Treatment Hematology/Oncology Treatment, [place] [address] [place] [address] Liza, Chair 5 Hem Onc [address] [place] [address] Antepartum anemia complicating * Allergies Active Allergy Reactions Criticality Noted Date Comments Amoxicillin 09/27/2001 Cephalosporins Hives,Itching 09/23/2010 Doxycycline Nausea/vomiting 04/07/2022 Penicillins 01/13/2010 documented as of this encounter (statuses as of 09/18/2023) Medications Medication Sig Dispensed Refills Start Date [...] Route Frequency Start Date End Date Status zyvnayyytz-ensfsajfljqrj-wkbz eine 50-325-40 mg per tab (Fioricet) 1 TabletIndications:Migraine without aura and without status migrainosus, not intractable 1 Tablet OR Q4H PRN 05/18/2023 Active documented as of this encounter (statuses as of 09/18/2023) Active Problems Problem Noted Date Diagnosed Date [...] She prefers to have her US in [facility]. S/S of preeclampsia were reviewed. Umbilical hernia 04/14/2015 LUQ abdominal pain 09/20/2011 PATELLOFEMORAL PAIN SYNDROME, LEFT 06/01/2010 Pain in limb 06/01/2010 Menstruation, irregular 03/24/2010 Estimated Date of Delivery Comme nts Yes 10/25/2023 Based on last me nstrual period of 01/18/2023 documented as of this encounter (statuses as of 09/18/2023) Resolved Problems Problem Noted Date Diagnosed Date [...] as of this encounter (statuses as of 09/18/2023) Immunizations Name Administration Dates Next Due COVID-19 mRNA, LNP-s, No Pre serve, 2-Dose Series (ChipX) 01/29/2021,01/04/2021 DTaP Dipth/Tet/Acell Pertussis (Infanrix), Peds 09/10/1998 [...] money to get more. Never true 02/22/2023 [place] Depression Scale Answer Date Recorded [place] Depression Scale Total 1 09/12/2023 The thought [...] Sign Reading Time Taken Comments Blood Pressure 126/83 09/18/2023 1:57 PM EST Pulse 98 09/18/2023 1:57 PM EST Temperature 36.6 C (97.9 F) 09/18/2023 1:57 PM ES T Respiratory Rate 18 09/18/2023 1:57 PM EST Oxygen Saturation 100% 09/18/2023 1:57 PM EST Inhaled Oxygen Concentration - - Weight - - Height - - Body Mass Index - - documented in this encounter Nursing Notes * Julia Dean RN - 09/18/2023 4:06 PM EST Goals: Patient will remain free from injury. Possible barriers to meeting goals: Fall risk d/t ambulation with IV pole. Stability of the patient: Moderately stable - low risk of patient condition declining or worsening Summary regarding today's goals: Met: Patient remained free of injury. Patient tolerated procedure well. Discharged in stable condition. * Julia Dean RN - 09/18/2023 3:13 PM EST Chair 5. Patient arrived for Venofer infusion for the first time, patient oriented to treatment room and process. Safety and Risk for Injury Patient will remain free from injury. Ensure appropriate safety devices are available. Provide and maintain safe environment. documented in this encounter Plan of Treatment Upcoming Encounters Date Type Department Care Team (Late st Contact Info) Description 09/19/2023 10:00 AM EST Pharmacy Pharmacy, [place] [address] [place] [address] Clinic, [facility] [address] [place] [address] 09/26/2023 2:30 PM EST Hem/Onc Treatment Hematology/Oncology Treatment, [place] [address] [facility] [place] [address] Liza, Chair 11 Hem Onc Scenery [address] [place] [address] 09/27/2023 12:45 PM EST Imaging Radiology [facility] 2nd Floor, [place] [address] [facility] [place] [address] 09/27/2023 1:45 PM EST Office Visit Gynecology/Obstetrics [facility] [address] [facility] [place] [address] Alissa Villanueva CRNP [address] [facility] [place] [address] 09/28/2023 10:35 AM EST Cardiac Studies Cardiac Studies, [facility] [address] [place] [address] 10/03/2023 2:30 PM EST Hem/Onc Treatment Hematology/Oncology Treatment, [place] [address] [place] [address] Liza, Chair 8 Hem Onc Scenery [address] [place] [address] Health Maintenance Due Date Last Done Comments [...] ONCE PRN Other, Hypersensitivity Reaction, Starting on Mon09/18/23 at 1416, Until Mon09/19/23 at 1415, For 24 hours EPINEPHrine 1 MG/ML inj 0.3 mg 0.3 mg, Intramuscular, ONCE PRN Other, Hypersensitivity Reaction or Anaphylaxis, Starting on Mon09/18/23 at 1416, Until Mon09/19/23 at 1415, For 24 hours hEParin 100 UNIT/ML Lock Flush inj 500 Units 500 Units (5 mL), IV Lock, PRN Other, IV Flush, Starting on Mon09/18/23 at 1416, Until Mon09/19/23 at 1415, For 24 hours, Do not flush if lock, PICC, or central line not in place; IV infusing or unable to flush. Hydrocortisone Sod Suc (PF) (Solu-Cortef) inj 100 mg 100 mg, IV Push, ONCE PRN Other, Hypersensitivity Reaction, Starting on Mon09/18/23 at 1416, Until Mon09/19/23 at 1415, For 24 hours NSS infusion 500 mL, Intravenous, at 50 mL/hr, CONTINUOUS, Starting on Mon09/18/23 at 1530, Until Mon09/19/23 at 0129 Start Infusion 09/18/2023 2:20 PM EST 500 mL 50 mL/hr oxygen GAS Inhalation, OXYGEN, First dose on Mon09/18/23 at 1600, Until Discontinued, Device/Managed by: Low [...] Push, PRN Other, IV Flush, Starting on Mon09/18/23 at 1416, Until Mon09/19/23 at 1415, For 24 hours, Do not flush if lock, PICC, or central line not in place; IV infusing or unable to flush. Inactive Administered Medications - up to 3 most recent administrations Medication Order MAR Action Action Date Dose Rate Site Iron Sucrose (Venofer) 300 mg in NSS 250 mL ivpb 300 mg, IV Piggyback, ONCE, 1 dose, On Mon09/18/23 at 1600, Administer over 90 Minutes Start Infusion 09/18/2023 2:29 PM EST 300 mg 166.67 mL/hr documented in this encounter Care Teams Supervisor Quality Control Relationship Specialty Start Date End Date Yimi Melgoza MD [address] [place] [address] PCP - General 02/03/10 documented as of this encounter
--- OUTSIDE RECORDS SUMMARY | 2023-10-22 23:27 | External Medical Summary | Summary of Care ---
Author Name Unknown Organization [facility] Address [address] [place] [address] Phone [phone] Care Team Providers Care Corduroy Cutting Supervisor Name Role Phone Yimi Melgoza MD Primary Care Provider +1- [phone] Reason for Visit * Reason Comments Non Stress Test Encounter Details Date Type Department Care Team (Late st Contact Info) Description 10/10/2023 11:15 AM EST Office Visit Gynecology/Obstetric s [facility] [address] [place] [address] Luann Ayoub CRNP [address] [place] [address] Jacob Non Stress Tests Kenn [address] [place] [address] Supervision of other normal , antepartum*; Obesity [...] Route Frequency Start Date End Date Status jrnlywuwxz-qqbwbhognpreg-qpcs eine 50-325-40 mg per tab (Fioricet) 1 [...] She prefers to have her US in [facility]. S/S of preeclampsia were reviewed. Umbilical [...] mRNA, LNP-s, No Pre serve, 2-Dose Series ([employer] Puppy) 01/29/2021,01/04/2021 DTaP Dipth/Tet/Acell Pertussis (Infanrix), Peds 09/10/1998 [...] money to get more. Never true 02/22/2023 [place] Depression Scale Answer Date Recorded [place] Depression Scale Total 1 09/12/2023 The thought [...] Sign Reading Time Taken Comments Blood Pressure 110/70 10/10/2023 11:17 AM EST Pulse - - Temperature - - Respiratory Rate - - Oxygen Saturation - - Inhaled Oxygen Concentration - - Weight 99.8 kg (220 lb) 10/10/2023 11:17 AM EST Height 162.6 cm (5' 4") 10/10/2023 11:17 AM EST Body Mass Index 37.76 10/10/2023 11:17 AM EST documented in this encounter Progress Notes * Luann Ayoub CRNP - 10/10/2023 11:24 AM EST 37w6d Baby is moving well. No leaking/bleeding or regular ctx. Has an iron infusion scheduled tomorrow. Increased pelvic pain/pressure, requests cervical exam - closed. Encouraged using a belly band. Partner is considering a vasectomy. 1 week return for visit/NST. Retail Pharmacy Technician Documentation Provider requested transportation supervisor. Name of transportation supervisor: MARBELLA Osborn LPN ASSESSMENT assessment with Non-stress Test completed on 10/10/2023 at 37w6d gestation for indication of obesity heart baseline: 140 bpm Variability: Moderate Decelerations: absent Accelerations: present Contractions: None NST start time: 1113 NST stop time: 1133 NST strip reviewed, interpreted, and approved by OB provider, MARBELLA Chavira. NST strip stored in clinic storage file documented in this encounter Plan of Treatment Upcoming Encounters Date Type Department Care Team (Late st Contact Info) Description 10/11/2023 10:00 AM EST Pharmacy Pharmacy, [place] [address] [place] [address] Clinic, [place] [address] [place] [address] 10/17/2023 1:45 PM EST Office Visit Gynecology/Obstetrics [facility] [address] [place] [address] Alissa Villanueva CRNP [address] [place] [address] Clara James Stress Tests [facility] [address] [place] [address] 10/23/2023 9:45 AM EST Office Visit Gynecology/Obstetrics [facility] [address] [place] [address] Alissa Villanueva CRNP [address] [place] [address] Jacob, Non Stress Tests [facility] [address] [place] [address] Health Maintenance Due Date Last Done Comments [...] deficiency documented in this encounter Care Teams Corduroy Cutting Supervisor Relationship Specialty Start Date End Date Yimi Melgoza MD [address] [place] [address] PCP - General 02/03/10 documented as of this encounter
--- OUTSIDE RECORDS SUMMARY | 2023-10-22 23:27 | External Medical Summary | Summary of Care ---
Author Name Unknown Organization [facility] Address [address] [place] [address] Phone [phone] Care Team Providers Care Surveillance System Monitor Name Role Phone Yimi Melgoza MD Primary Care Provider +1- [phone] Reason for Visit * Reason Comments Return Visit Encounter Details Date Type Department Care Team (Late st Contact Info) Description 10/17/2023 1:45 PM EST Office Visit Gynecology/Obstetric s Yoshi'jayson James [address] [facility] [place] [address] Alissa Villanueva CRNP [address] [place] [address] Jacob Non Stress Tests Kenn [address] [place] [address] Supervision of other normal , antepartum*; Obesity in , antepartum; Antepartum anemia complicating ; Maternal vitamin B12 deficiency Allergies Active Allergy Reactions Criticality Noted Date Comments Amoxicillin 09/27/2001 Cephalosporins Hives,Itching 09/23/2010 Doxycycline Nausea/vomiting 04/07/2022 Penicillins 01/13/2010 documented as of this encounter (statuses as of 10/17/2023) Medications Medication Sig Dispensed Refills Start Date [...] Route Frequency Start Date End Date Status ljxdrjsejs-cblqdzxoppwyx-ixzr eine 50-325-40 mg per tab (Fioricet) 1 TabletIndications:Migraine without aura and without status migrainosus, not intractable 1 Tablet OR Q4H PRN 05/18/2023 Active documented as of this encounter (statuses as of 10/17/2023) Active Problems Problem Noted Date Diagnosed Date [...] prefers to have her US in [facility]. S/S of preeclampsia were reviewed. Umbilical hernia 04/14/2015 LUQ abdominal pain 09/20/2011 PATELLOFEMORAL PAIN SYNDROME, LEFT 06/01/2010 Pain in limb 06/01/2010 Menstruation, irregular 03/24/2010 Estimated Date of Delivery Comme nts Yes 10/25/2023 Based on last me nstrual period of 01/18/2023 documented as of this encounter (statuses as of 10/17/2023) Resolved Problems Problem Noted Date Diagnosed Date [...] as of this encounter (statuses as of 10/17/2023) Immunizations Name Administration Dates Next Due COVID-19 mRNA, LNP-s, No Pre serve, 2-Dose Series (General Blood) 01/29/2021,01/04/2021 DTaP Dipth/Tet/Acell Pertussis (Infanrix), Peds 09/10/1998 [...] money to get more. Never true 02/22/2023 [place] Depression Scale Answer Date Recorded [place] Depression Scale Total 1 09/12/2023 The thought [...] Sign Reading Time Taken Comments Blood Pressure 112/68 10/17/2023 2:13 PM EST Pulse - - Temperature - - Respiratory Rate - - Oxygen Saturation - - Inhaled Oxygen Concentration - - Weight 99.8 kg (220 lb) 10/17/2023 2:13 PM EST Height 162.6 cm (5' 4") 10/17/2023 2:13 PM EST Body Mass Index 37.76 10/17/2023 2:13 PM EST documented in this encounter Progress Notes * Alissa Villanueva CRNP - 10/17/2023 2:23 PM EST ASSESSMENT assessment with Non-stress Test completed on 10/17/2023 at 38.6weeks gestation for indication of obesity heart baseline: 140 bpm Variability: Moderate Decelerations: absent Accelerations: present Contractions: Present, irregular NST start time: 1356 NST stop time: 1422 NST strip reviewed, interpreted, and approved by OB provider, MARBELLA Marx . NST strip stored in clinic storage file Having a lot of pelvic pain. Baby is active. Some cramping, no regular contractions. Asking about IOL, scheduled for 10/26. Gore Seamer Documentation Provider requested radio despatcher. Name of radio despatcher: Agata documented in this encounter Plan of Treatment Upcoming Encounters Date Type Department Care Team (Late st Contact Info) Description 10/23/2023 9:45 AM EST Office Visit Gynecology/Obstetrics Phil James [address] [place] [address] Alissa Villanueva CRNP [address] [place] [address] Clara James Stress Tests Kenn [address] [place] [address] Health Maintenance Due Date Last Done Comments [...] deficiency documented in this encounter Care Teams Surveillance System Monitor Relationship Specialty Start Date End Date Yimi Melgoza MD [address] [place] [address] PCP - General 02/03/10 documented as of this encounter
--- OUTSIDE RECORDS SUMMARY | 2023-10-22 23:27 | External Medical Summary | Summary of Care ---
Author Name Unknown Organization [facility] Address [address] [place] [address] Phone [phone] Care Team Providers Care Polishing Machine Tender Name Role Phone Yimi Melgoza MD Primary Care Provider +1- [phone] Reason for Visit * Reason Comments IV Therapy Venofer 12/02 Encounter Details Date Type Department Care Team (Latest Contact Info) Description 10/03/2023 2:30 PM EST Hem/Onc Treatment Hematology/Oncology Treatment, [place] [address] [place] [address] Liza, Chair 7 Hem Onc Scenery [address] [place] [address] Antepartum anemia complicating * Allergies Active Allergy Reactions Criticality Noted Date Comments Amoxicillin 09/27/2001 Cephalosporins Hives,Itching 09/23/2010 Doxycycline Nausea/vomiting 04/07/2022 Penicillins 01/13/2010 documented as of this encounter (statuses as of 10/03/2023) Medications Medication Sig Dispensed Refills Start Date [...] Route Frequency Start Date End Date Status kvzqfekjda-yqokuyejmbgxr-tojy eine 50-325-40 mg per tab (Fioricet) 1 TabletIndications:Migraine without aura and without status migrainosus, not intractable 1 Tablet OR Q4H PRN 05/18/2023 Active documented as of this encounter (statuses as of 10/03/2023) Active Problems Problem Noted Date Diagnosed Date [...] She prefers to have her US in [facility]. S/S of preeclampsia were reviewed. Umbilical hernia 04/14/2015 LUQ abdominal pain 09/20/2011 PATELLOFEMORAL PAIN SYNDROME, LEFT 06/01/2010 Pain in limb 06/01/2010 Menstruation, irregular 03/24/2010 Estimated Date of Delivery Comme nts Yes 10/25/2023 Based on last me nstrual period of 01/18/2023 documented as of this encounter (statuses as of 10/03/2023) Resolved Problems Problem Noted Date Diagnosed Date [...] as of this encounter (statuses as of 10/03/2023) Immunizations Name Administration Dates Next Due COVID-19 mRNA, LNP-s, No Pre serve, 2-Dose Series ([employer]) 01/29/2021,01/04/2021 DTaP Dipth/Tet/Acell Pertussis (Infanrix), Peds 09/10/1998 [...] money to get more. Never true 02/22/2023 [place] Depression Scale Answer Date Recorded [place] Depression Scale Total 1 09/12/2023 The thought [...] Sign Reading Time Taken Comments Blood Pressure 118/74 10/03/2023 3:11 PM EST Pulse 98 10/03/2023 3:11 PM EST Temperature 36.8 C (98.3 F) 10/03/2023 3:11 PM ES T Respiratory Rate 16 10/03/2023 3:11 PM EST Oxygen Saturation 94% 10/03/2023 3:11 PM EST Inhaled Oxygen Concentration - - Weight - - Height - - Body Mass Index - - documented in this encounter Nursing Notes * Yamileth Sorensen RN - 10/03/2023 4:28 PM EST Goals: Patient will remain free [...] condition and denied any further needs. * Yamileth Sorensen RN - 10/03/2023 3:13 PM EST Chair 10. IV inserted. Patient feeling well, tolerating Venofer infusions without any acute issues or problems. Safety and Risk for Injury Patient will remain free from injury. Ensure appropriate safety devices are available. Provide and maintain safe environment. documented in this encounter Plan of Treatment Upcoming Encounters Date Type Department Care Team (Late st Contact Info) Description 10/05/2023 10:30 AM EST Office Visit Gynecology/Obstetrics Phil James [address] [place] [address] Luann Ayoub CRNP [address] [place] [address] Jacob, Non Stress Tests [facility] [address] [place] [address] 10/10/2023 9:45 AM EST Pharmacy Pharmacy, [place] [address] [place], [place] [id number] Clinic, [facility] [address] [place], [place] [id number] 10/10/2023 11:15 AM EST Office Visit Gynecology/Obstetrics Phil James [address] [place] [address] Luann Ayoub CRNP [address] [place] [address] Clara James Stress Tests [place] [address] 10/17/2023 1:45 PM EST Office Visit Gynecology/Obstetrics Phil James [address] [place] [address] Alissa Villanueva CRNP [address] [place] [address] Clara James Stress Tests Kenn [address] [place] [address] 10/23/2023 9:45 AM EST Office Visit Gynecology/Obstetrics Yoshiyeny Jacob [address] [place] [address] Alissa Villanueva CRNP [address] [place] [address] Clara James Stress Tests Kenn [place] [address] Health Maintenance Due Date Last Done Comments [...] ONCE PRN Other, Hypersensitivity Reaction, Starting on Mon10/03/23 at 1449, Until Mon10/04/23 at 1448, For 24 hours EPINEPHrine 1 MG/ML inj 0.3 mg 0.3 mg, Intramuscular, ONCE PRN Other, Hypersensitivity Reaction or Anaphylaxis, Starting on Mon10/03/23 at 1449, Until Mon10/04/23 at 1448, For 24 hours hEParin 100 UNIT/ML Lock Flush inj 500 Units 500 Units (5 mL), IV Lock, PRN Other, IV Flush, Starting on Mon10/03/23 at 1449, Until Mon10/04/23 at 1448, For 24 hours, Do not flush if lock, PICC, or central line not in place; IV infusing or unable to flush. Hydrocortisone Sod Suc (PF) (Solu-Cortef) inj 100 mg 100 mg, IV Push, ONCE PRN Other, Hypersensitivity Reaction, Starting on Mon10/03/23 at 1449, Until Mon10/04/23 at 1448, For 24 hours NSS infusion 500 mL, Intravenous, at 50 mL/hr, CONTINUOUS, Starting on Mon10/03/23 at 1600, Until Mon10/04/23 at 0159 Start Infusion 10/03/2023 2:50 PM EST 500 mL 50 mL/hr oxygen GAS Inhalation, OXYGEN, First dose on Mon10/03/23 at 1600, Until Discontinued, Device/Managed by: Low [...] Push, PRN Other, IV Flush, Starting on Mon10/03/23 at 1449, Until Mon10/04/23 at 1448, For 24 hours, Do not flush if lock, PICC, or central line not in place; IV infusing or unable to flush. Inactive Administered Medications - up to 3 most recent administrations Medication Order MAR Action Action Date Dose Rate Site Iron Sucrose (Venofer) 300 mg in NSS 250 mL ivpb 300 mg, IV Piggyback, ONCE, 1 dose, On Mon10/03/23 at 1630, Administer over 90 Minutes Start Infusion 10/03/2023 2:50 PM EST 300 mg 166.67 mL/hr documented in this encounter Care Teams Polishing Machine Tender Relationship Specialty Start Date End Date Yimi Melgoza MD [address] [place] [address] PCP - General 02/03/10 documented as of this encounter
--- OUTSIDE RECORDS SUMMARY | 2023-10-22 23:28 | External Medical Summary | Summary of Care ---
Author Name Unknown Organization [facility] Address [address] [place] [address] Phone [phone] Care Team Providers Care Location And Measurement Technician Name Role Phone Yimi Melgoza MD Primary Care Provider +1- [phone] Reason for Referral * (Within 10 days (routine)) Specialty Diagnoses / Procedures Referred By Contlisa t Referred To Contact Alex Shah MD [address] [place] [address] Referral ID Status Reason Start Date Expiration Date Visits Re quested Visits Authorized Question Answer Referral Priority Within 10 days (routine) Where should this appointment be scheduled? [facility] Comments anemia Reason for Visit * Reason Onset Date Comments Advice 09/04/2023 Encounter Details Date Type Department Care Team ([facility] st Contact Info) Description 09/04/2023 Telephone Gynecology/Obstetrics [facility] [address] [place] [address] Alex Shah MD [address] [place] [address] Advice Allergies Active Allergy Reactions Criticality Noted Date Comments Amoxicillin 09/27/2001 Cephalosporins Hives,Itching 09/23/2010 Doxycycline Nausea/vomiting 04/07/2022 Penicillins 01/13/2010 documented as of this encounter (statuses as of 09/04/2023) Medications Medication Sig Dispensed Refills Start Date [...] Route Frequency Start Date End Date Status wstpfoshxg-ntupgfwnfmfqb-xzyn eine 50-325-40 mg per tab (Fioricet) 1 TabletIndications:Migraine without aura and without status migrainosus, not intractable 1 Tablet OR Q4H PRN 05/18/2023 Active documented as of this encounter (statuses as of 09/04/2023) Active Problems Problem Noted Date Diagnosed Date Antepartum anemia complicating 023 Overview: Hgb 10.1 [...] as of this encounter (statuses as of 09/04/2023) Resolved Problems Problem Noted Date Diagnosed Date [...] as of this encounter (statuses as of 09/04/2023) Immunizations Name Administration Dates Next Due COVID-19 mRNA, LNP-s, No Pre serve, 2-Dose Series ([employer]) 01/29/2021,01/04/2021 DTaP Dipth/Tet/Acell Pertussis (Infanrix), Peds 09/10/1998 [...] money to get more. Never true 02/22/2023 [place] Depression Scale Answer Date Recorded [place] Depression Scale Total 1 07/25/2023 The thought of harming myself has occurred to me . Never 07/25/2023 Estimated Date of Delivery Comme nts Yes [...] encounter Miscellaneous Notes * Telephone Encounter - Pablo, Alex, MD - 09/04/2023 10:53 AM EST Pa referred to Blood management documented in this encounter Plan of Treatment Upcoming Encounters Date Type Department Care Team (Late st Contact Info) Description 09/12/2023 11:45 AM EST [facility] [address] [place] [address] BackerLuann CRNP [address] [place] [address] Scheduled Referrals Name Type Priority Associated Diagnoses Orde r Schedule BLOOD MANAGEMENT REFERRAL Referral Within 10 days (routine) Other iron deficiency anemia Ordered: 09/04/2023 Health Maintenance Due Date Last Done Comments [...] as of this encounter Visit Diagnoses Diagnosis Other iron deficiency anemia- Primary documented in this encounter Care Teams Location And Measurement Technician Relationship Specialty Start Date End Date Yimi Melgoza MD [address] [place] [address] PCP - General 02/03/10 documented as of this encounter
--- OUTSIDE RECORDS SUMMARY | 2023-10-22 23:28 | External Medical Summary | Summary of Care ---
Author Name Unknown Organization [facility] Address [address] [place] [address] Phone [phone] Care Team Providers Care Closing Agent Name Role Phone Yimi Melgoza MD Primary Care Provider +1- [phone] Reason for Visit * Reason Onset Date Comments Anemia Follow-Up 09/12/2023 * Evaluate & Treat - Unlimited Visits (Within 10 days (routine)) - Pending Review Specialty Diagnoses / Procedures Referred By Alhaji beltre Referred To Contact Pharmacist / Pharmacy Diagnoses PHILIPPE (iron deficiency anemia) Alex Shah MD [address] [place] [address] Referral ID Status Reason Start Date Expiration Date Visits Requested Visits Authorized [id number] Pending Review Specialty Services Required 09/04/2023 99 99 Encounter Details Date Type Department Care Team (Late st Contact Info) Description 09/12/2023 4:00 PM [facility] Pharm[facility] Pharmacy, [place] [address] [place] [address] Clinic, Anemia [address] [place] [address] Iron deficiency anemia, unspecified iron deficiency anemia type* Allergies Active Allergy Reactions Criticality Noted Date Comments Amoxicillin 09/27/2001 Cephalosporins Hives,Itching 09/23/2010 Doxycycline Nausea/vomiting 04/07/2022 Penicillins 01/13/2010 documented as of this encounter (statuses as of 09/12/2023) Medications Medication Sig Dispensed Refills Start Date [...] Route Frequency Start Date End Date Status czajuqwvyc-jmeugwrnkzknb-phib eine 50-325-40 mg per tab (Fioricet) 1 TabletIndications:Migraine without aura and without status migrainosus, not intractable 1 Tablet OR Q4H PRN 05/18/2023 Active documented as of this encounter (statuses as of 09/12/2023) Active Problems Problem Noted Date Diagnosed Date [...] She prefers to have her US in [facility]. S/S of preeclampsia were reviewed. Umbilical hernia 04/14/2015 LUQ abdominal pain 09/20/2011 PATELLOFEMORAL PAIN SYNDROME, LEFT 06/01/2010 Pain in limb 06/01/2010 Menstruation, irregular 03/24/2010 Estimated Date of Delivery Comme nts Yes 10/25/2023 Based on last me nstrual period of 01/18/2023 documented as of this encounter (statuses as of 09/12/2023) Resolved Problems Problem Noted Date Diagnosed Date [...] as of this encounter (statuses as of 09/12/2023) Immunizations Name Administration Dates Next Due COVID-19 mRNA, LNP-s, No Pre serve, 2-Dose Series ([employer]) 01/29/2021,01/04/2021 DTaP Dipth/Tet/Acell Pertussis (Infanrix), Peds 09/10/1998,07/18/1994,04/01/1993,12/22,1992 [...] money to buy more. Never true 02/23/20 Within the past 12 months, t he food you bought just didn't last and you didn't have money to get more. Never true 02/22/2023 [place] Depression Scale Answer Date Recorded [place] Depression Scale Total 1 09/12/2023 The thought [...] of this encounter Progress Notes * Jaimie Patterson RPh - 09/12/2023 8:00 AM EST Patient referred by Alex Shah MD for evaluation of anemia by the Anemia Clinic. Called patient to introduce role/clinic and to review labs from 08/25. Hgb: 9.7 g/dL TSAT: 10 % Ferritin: 24 ng/mL B12: 231 pg/mL FA: 17.4 ng/mL GA: 33w6d Estimated Date of Delivery: 10/25/23 Hgb is below target range for the third trimester. Iron studies below target range. B12 level belowtarget range. FA level within target range. Per chart review, patient is taking B12 1000mcg daily and appears to be tolerating it well. Patient qualifies for IV iron repletion. Patient reports feeling extra tired and short of breath at times. She has tachycardia. Her oxygen levels are low. Plan: Venofer 300 mg IV weekly x 3 doses at [facility]. Orders placed and routed to appropriate parties. Patient agreeable to intervention. Follow-up labs (CBCD, ferritin, iron screen, retic panel, B12, and FA) to be scheduled 4-6 weeks after iron repletion completed if appropriate prior to delivery. Anemia Clinic will continue to follow. Thank you for allowing us to participate in the care of thispatient. Thanks, Jaimie Patterson RPh Clinical Pharmacist [facility] (P: [phone]) 09/12/2023 8:00 AM documented in this encounter Miscellaneous Notes * Addendum Note - Jaimie Patterson RPh - 09/12/2023 1:20 PM ESTAddended by: JAIMIE PATTERSON on: 09/12/2023 01:20 PM Modules accepted: Orders Electronically signed by Jaimie Patterson [facility] at 09/12/2023 1:20 PM EST documented in this encounter Plan of Treatment Upcoming Encounters Date Type Department Care Team (Late st Contact Info) Description 09/19/2023 10:00 AM EST Pharmacy Pharmacy, [place] [address] [place] [address] Clinic, Anemia [address] [place] [address] 09/27/2023 12:45 PM EST [facility] [address] [facility] [place] [address] 09/27/2023 1:45 PM EST Office Visit Gynecology/Obstetrics [facility] [address] [facility] [place] [address] Alissa Villanueva CRNP [address] [facility] [place] [address] Scheduled Referrals Name Type Priority Associated Diagnoses Orde r Schedule PHARMACIST MEDS THERAPY MGMT REFERRAL OP Referral Within 10 days (routine) PHILIPPE (iron deficiency anemia) Ordered: 09/04/2023 Health Maintenance Due Date Last [...] Primary documented in this encounter Care Teams Closing Agent Relationship Specialty Start Date End Date Yimi Melgoza MD [address] [place] [address] PCP - General 02/03/10 documented as of this encounter
--- OUTSIDE RECORDS SUMMARY | 2023-10-22 23:28 | External Medical Summary | Summary of Care ---
Author Name Unknown Organization [facility] Address [address] [place] [address] Phone [phone] Care Team Providers Care Leather Goods Assembler Name Role Phone Yimi Melgoza MD Primary Care Provider +1- [phone] Reason for Referral * Evaluate & Treat - Unlimited Visits (Within 10 days (routine)) - Pending Review Specialty Diagnoses / Procedures Referred By Contlisa t Referred To Contact Pharmacist / Pharmacy Diagnoses PHILIPPE (iron deficiency anemia) Alex Shah MD [address] [place] [address] Referral ID Status Reason Start Date Expiration Date Visits Requested Visits Authorized [id number] Pending Review Specialty Services Required 09/04/2023 99 99 Question Answer Referral Priority Within 10 days (routine) Where should this appointment be scheduled? [facility] Department: Specialist Specialty: mother superior Reason for Referral: Anemia Comments Pharmacist Medication Therapy Management: Iron deficiency anemia Rangel Cain RN Reason for Visit * Reason Onset Date Comments Blood Management Program 09/04/2023 Encounter Details Date Type Department Care Team (Late st Contact Info) Description 09/04/2023 Telephone Patient Blood Management, [place] [address] [place] [address] Alex Shah MD [address] [place] [address] Blood Management Program Allergies Active Allergy Reactions Criticality Noted Date [...] Route Frequency Start Date End Date Status lyxvgpkpxe-mpclycaqlwdlc-ajdk eine 50-325-40 mg per tab (Fioricet) 1 [...] She prefers to have her US in [facility]. S/S of preeclampsia were reviewed. [...] money to get more. Never true 02/22/2023 [place] Depression Scale Answer Date Recorded [place] Depression Scale Total 1 09/12/2023 The thought [...] encounter Miscellaneous Notes * Telephone Encounter - Rangel Cain RN - 09/04/2023 11:46 AM EST Recommend IV iron as per OB MTM protocol. Patient agreeable, prefers infusions at [facility] documented in this encounter Plan of Treatment Upcoming Encounters Date Type Department Care Team (Late st Contact Info) Description 09/12/2023 4:00 PM EST Pharmacy Pharmacy, [place] [address] [place] [address] Clinic, Anemia [address] [place] [address] Iron deficiency anemia, unspecified iron deficiency anemia type* 09/19/2023 10:00 AM EST Pharmacy Pharmacy, [place] [address] [place] [address] Clinic, Anemia [address] [place] [address] 09/27/2023 12:45 PM EST Imaging Radiology [facility] 2nd Floor, [place] [address] [facility] [place] [address] 09/27/2023 1:45 PM EST Office Visit Gynecology/Ob[facility] [address] [place] [address] Alissa Villanueva CRNP [address] [place] [address] Scheduled Referrals Name Type Priority Associated Diagnoses [...] as of this encounter Visit Diagnoses Diagnosis PHILIPPE (iron deficiency anemia)- Primary Iron deficiency anemia, unspecified Iron deficiency anemia, unspecified iron deficiency anemia type- Primary documented in this encounter Care Teams Leather Goods Assembler Relationship Specialty Start Date End Date Yimi Melgoza MD [address] [place], [place] [id number] PCP - General 02/03/10 documented as of this encounter
--- OUTSIDE RECORDS SUMMARY | 2023-10-22 23:28 | External Medical Summary | Summary of Care ---
Author Name Unknown Organization [facility] Address [address] [place] [address] Phone [phone] Care Team Providers Care Offset Second Press Operator Name Role Phone Yimi Melgoza MD Primary Care Provider +1- [phone] Reason for Visit * Reason Onset Date Comments Anemia Follow-Up 09/12/2023 * Evaluate & Treat - Unlimited Visits (Within 10 days (routine)) - Pending Review Specialty Diagnoses / Procedures Referred By Alhaji beltre Referred To Contact Pharmacist / Pharmacy Diagnoses PHILIPPE (iron deficiency anemia) Alex Shah MD [address] [place] [address] Referral ID Status Reason Start Date Expiration Date Visits Requested Visits Authorized [id number] Pending Review Specialty Services Required 09/04/2023 99 99 Encounter Details Date Type Department Care Team (Late st Contact Info) Description 09/12/2023 4:00 PM [facility] Pharmacy Pharmacy, [place] [address] [place] [address] Clinic, Anemia [address] [place] [address] Iron deficiency anemia, unspecified iron deficiency anemia type* Allergies Active Allergy Reactions Criticality Noted Date Comments Amoxicillin 09/27/2001 Cephalosporins Hives,Itching 09/23/2010 Doxycycline Nausea/vomiting 04/07/2022 Penicillins 01/13/2010 documented as of this encounter (statuses as of 09/13/2023) Medications Medication Sig Dispensed Refills Start Date [...] Route Frequency Start Date End Date Status zwyqxbaeyq-agsymcnjjatrv-rpbl eine 50-325-40 mg per tab (Fioricet) 1 TabletIndications:Migraine without aura and without status migrainosus, not intractable 1 Tablet OR Q4H PRN 05/18/2023 Active documented as of this encounter (statuses as of 09/13/2023) Active Problems Problem Noted Date Diagnosed Date [...] She prefers to have her US in [facility]. S/S of preeclampsia were reviewed. Umbilical hernia 04/14/2015 LUQ abdominal pain 09/20/2011 PATELLOFEMORAL PAIN SYNDROME, LEFT 06/01/2010 Pain in limb 06/01/2010 Menstruation, irregular 03/24/2010 Estimated Date of Delivery Comme nts Yes 10/25/2023 Based on last me nstrual period of 01/18/2023 documented as of this encounter (statuses as of 09/13/2023) Resolved Problems Problem Noted Date Diagnosed Date [...] as of this encounter (statuses as of 09/13/2023) Immunizations Name Administration Dates Next Due COVID-19 mRNA, LNP-s, No Pre serve, 2-Dose Series ([employer]) 01/29/2021,01/04/2021 DTaP Dipth/Tet/Acell Pertussis (Infanrix), Peds 09/10/1998,07/18/1994,04/01/1993,12/22,1992 [...] money to get more. Never true 02/22/2023 [place] Depression Scale Answer Date Recorded [place] Depression Scale Total 1 09/12/2023 The thought [...] mg IV weekly x 3 doses at [facility]. Orders placed and routed to appropriate parties. Patient agreeable to intervention. Follow-up labs (CBCD, ferritin, iron screen, retic panel, B12, and FA) to be scheduled 4-6 weeks after iron repletion completed if appropriate prior to delivery. Anemia Clinic will continue to follow. Thank you for allowing us to participate in the care of thispatient. Thanks, Jaimie Patterson RPh Clinical Pharmacist [facility] (P: [phone]) 09/12/2023 8:00 AM documented in this encounter Miscellaneous Notes * Addendum Note - Jaimie Patterson RPh - 09/12/2023 1:20 PM ESTAddended by: JAIMIE PATTERSON on: 09/12/2023 01:20 PM Modules accepted: Orders documented in this encounter Plan of Treatment Upcoming Encounters Date Type Department Care Team (Late st Contact Info) Description 09/15/2023 2:00 PM EST Office Visit Cardiology, [facility] 132 [facility] [place] [address] Fabian Ferreira DO 132 [facility] [place] [address] 09/19/2023 10:00 AM EST Pharmacy Pharmacy, [place] [address] [place] [address] Clinic, [facility] [address] [place] [address] 09/27/2023 12:45 PM EST Imaging Radiology [facility] 2nd [facility] 132 [facility] [place] [address] 09/27/2023 1:45 PM EST Office Visit Gynecology/Obstetrics [facility] 132 [facility] [place] [address] Alissa Villanueva CRNP [address] [facility] [place] [address] Scheduled Referrals Name Type Priority Associated Diagnoses [...] Primary documented in this encounter Care Teams Offset Second Press Operator Relationship Specialty Start Date End Date Yimi Melgoza MD [address] [place] [address] PCP - General 02/03/10 documented as of this encounter
--- OUTSIDE RECORDS SUMMARY | 2023-10-22 23:28 | External Medical Summary | Summary of Care ---
Author Name Unknown Organization [facility] Address [address] [place] [address] Phone [phone] Care Team Providers Care Lens Inspector Name Role Phone Yimi Melgoza MD Primary Care Provider +1- [phone] Reason for Visit * Reason Onset Date Comments Anemia Follow-Up 09/12/2023 * Evaluate & Treat - Unlimited Visits (Within 10 days (routine)) - Pending Review Specialty Diagnoses / Procedures Referred By Alhaji beltre Referred To Contact Pharmacist / Pharmacy Diagnoses PHILIPPE (iron deficiency anemia) Alex Shah MD [address] [place] [address] Referral ID Status Reason Start Date Expiration Date Visits Requested Visits Authorized [id number] Pending Review Specialty Services Required 09/04/2023 99 99 Encounter Details Date Type Department Care Team (Late st Contact Info) Description 09/12/2023 4:00 PM [facility] Pharmacy Pharmacy, [place] [address] [place] [address] Clinic, Anemia [address] [place] [address] Iron deficiency anemia, unspecified iron deficiency anemia [...] Route Frequency Start Date End Date Status ylnrznkcuc-hjhdqxbjqitxp-qkkg eine 50-325-40 mg per tab (Fioricet) 1 [...] She prefers to have her US in [facility]. S/S of preeclampsia were reviewed. [...] mRNA, LNP-s, No Pre serve, 2-Dose Series ([employer]) 01/29/2021,01/04/2021 DTaP Dipth/Tet/Acell Pertussis (Infanrix), Peds 09/10/1998 [...] money to get more. Never true 02/22/2023 [place] Depression Scale Answer Date Recorded [place] Depression Scale Total 1 07/25/2023 The thought [...] of this encounter Progress Notes * Jaimie Eugene RPh - 09/12/2023 8:00 AM EST Patient referred by Alex Shah MD for evaluation of anemia by the Anemia Clinic. Called patient to introduce role/clinic and to review labs from 08/25. Left message on voicemail. Hgb: 9.7 g/dL TSAT: 10 % Ferritin: [...] well. Patient qualifies for IV iron repletion. Tentative Plan: Venofer 300 mg IV weekly x 3 doses at [facility]. Orders need to be placed and routed to appropriate parties if patient agreeable to intervention. Follow-up labs (CBCD, ferritin, iron screen, retic panel, B12, and FA) to be scheduled 4-6 weeks after iron repletion completed if appropriate prior to delivery. Anemia Clinic will continue to follow. Thank you for allowing us to participate in the care of thispatient. Thanks, Jaimie Eugene [facility] Clinical Pharmacist [facility] (P: [phone]) 09/12/2023 8:00 AM documented in this encounter Plan of Treatment Upcoming Encounters Date Type Department Care Team (Late st Contact Info) Description 09/12/2023 11:45 AM EST Office Visit Gynecology/Obstetrics [facility] [address] [address] Luann Ayoub CRNP [address] [place] [address] 09/19/2023 4:00 PM EST [facility] [place] [address] [facility] [address] Clinic, Anemia [address] [place] [address] Scheduled Referrals Name Type Priority Associated Diagnoses [...] Primary documented in this encounter Care Teams Lens Inspector Relationship Specialty Start Date End Date Yimi Melgoza MD [address] [place] [address] PCP - General 02/03/10 documented as of this encounter
--- OUTSIDE RECORDS SUMMARY | 2023-10-22 23:28 | External Medical Summary | Summary of Care ---
Author Name Unknown Organization [facility] Address [address] [place] [address] Phone [phone] Care Team Providers Care Electric Blanket Wirer Name Role Phone Yimi Melgoza MD Primary Care Provider +1- [phone] Reason for Visit * Reason Onset Date Comments Appointment 09/13/2023 Encounter Details Date Type Department Care Team (Late st Contact Info) Description 09/13/2023 Telephone Hematology/Oncology Treatment, [place] [address] [place] [address] Alex Shah MD [address] [place] [address] Appointment Allergies Active Allergy Reactions Criticality Noted [...] Route Frequency Start Date End Date Status pirzwhassh-gmrkghatgxxsr-odae eine 50-325-40 mg per tab (Fioricet) 1 [...] money to get more. Never true 02/22/2023 [place] Depression Scale Answer Date Recorded [place] Depression Scale Total 1 09/12/2023 The thought [...] Gleason RN - 09/14/2023 11:53 AM EST [place] plan signed. Scheduling- Please schedule patient for 2 hour appt "Venofer 10/04" (Pablo). Patient will receive oneinfusion weekly x 3 weeks. Thank you. * Telephone Encounter - Ever Gleason RN - 09/13/2023 11:17 AM EST [place] plan for IV Venofer completed. Routed for signature. Prior auth not needed for IV Venofer. Can send to scheduling once plan is signed. documented in this encounter Plan of Treatment Upcoming Encounters Date Type Department Care Team (Late st Contact Info) Description 09/15/2023 2:00 PM EST Office Visit Cardiology, [facility] 132 [facility] [place] [address] Fabian Ferreira DO 132 [facility] [place] [address] 09/19/2023 10:00 AM EST Pharmacy Pharmacy, [place] [address] [place] [address] Clinic, Anemia [address] [place] [address] 09/27/2023 12:45 PM EST Imaging Radiology [facility] 2nd [facility] 132 [facility] [place] [address] 09/27/2023 1:45 PM EST Office Visit Gynecology/Obstetrics [facility] 132 [facility] [place] [address] Alissa Villanueva CRNP [address] [place] [address] Health Maintenance Due Date Last Done Comments [...] filedocumented as of this encounter Care Teams Electric Blanket Wirer Relationship Specialty Start Date End Date Yimi Melgoaz MD [address] [place] [address] PCP - General 02/03/10 documented as of this encounter
--- OUTSIDE RECORDS SUMMARY | 2023-10-22 23:28 | External Medical Summary | Summary of Care ---
Author Name Unknown Organization [facility] Address [address] [place] [address] Phone [phone] Care Team Providers Care Gravel Screener Name Role Phone Yimi Melgoza MD Primary Care Provider +1- [phone] Encounter Details Date Type Department Care Team (Late st Contact Info) Description 09/13/2023 Orders Only Hematology/Oncology Treatment, [place] [address] [place] [address] Alex Shah MD [address] [place] [address] Allergies Active Allergy Reactions Criticality Noted Date [...] Route Frequency Start Date End Date Status vlmhgwkdgm-ikwhnceroacsl-kudp eine 50-325-40 mg per tab (Fioricet) 1 [...] She prefers to have her [place] in [place] [place]. S/S of preeclampsia were reviewed. Umbilical hernia [...] money to get more. Never true 02/22/2023 [place] Depression Scale Answer Date Recorded [place] Depression Scale Total 1 09/12/2023 The thought [...] on file documented as of this encounter Plan of Treatment Upcoming Encounters Date Type Department Care Team (Late st Contact Info) Description 09/15/2023 2:00 PM EST Office Visit Cardiology, [facility] [address] [place] [address] Fabian Ferreira, [address] [place] [address] 09/19/2023 10:00 AM EST Pharmacy Pharmacy, [place] [address] [facility] [place] [address] Clinic, Anemia [address] [place] [address] 09/27/2023 12:45 PM EST Imaging Radiology [facility] 2nd [facility] [address] [place] [address] 09/27/2023 1:45 PM EST Office Visit Gynecology/Obstetrics [facility] [address] [place] [address] Alissa Villanueva CRNP [address] [place] [address] Health Maintenance Due Date Last Done Comments [...] filedocumented as of this encounter Care Teams Gravel Screener Relationship Specialty Start Date End Date Yimi Melgoza MD [address] [place], [place] [id number] PCP - General 02/03/10 documented as of this encounter
--- OUTSIDE RECORDS SUMMARY | 2023-10-22 23:28 | External Medical Summary | Summary of Care ---
Author Name Unknown Organization [facility] Address [address] [place] [address] Phone [phone] Care Team Providers Care Track Sweeper Name Role Phone Yimi Melgoza MD Primary Care Provider +1- [phone] Encounter Details Date Type Department Care Team ([facility] st Contact Info) Description 09/13/2023 Orders Only Pharmacy, [address] [id number] Kami Levine, [facility] [address] [place] [address] Allergies Active Allergy Reactions Criticality Noted Date [...] Route Frequency Start Date End Date Status pbxcmicobz-ypogkidttqsmb-wqws eine 50-325-40 mg per tab (Fioricet) 1 [...] She prefers to have her US in [facility]. S/S of preeclampsia were reviewed. [...] money to get more. Never true 02/22/2023 [place] Depression Scale Answer Date Recorded [place] Depression Scale Total 1 09/12/2023 The thought [...] 09/15/2023 2:00 PM EST Office Visit Cardiology, [facility] [address] [place] [address] Fabian Ferreira, [address] [place] [address] 09/19/2023 10:00 AM EST Pharmacy Pharmacy, [place] [address] [facility] [place] [address] Clinic, Anemia [address] [place] [address] 09/27/2023 12:45 PM EST Imaging Radiology [facility] 2nd [facility] [address] [place] [address] 09/27/2023 1:45 PM EST Office Visit Gynecology/Obstetrics [facility] [address] [place] [address] Alissa Villanueva CRNP [address] [place] [address] Health Maintenance Due Date Last Done Comments [...] filedocumented as of this encounter Care Teams Track Sweeper Relationship Specialty Start Date End Date Yimi Melgoza MD [address] [place], [place] [id number] PCP - General 02/03/10 documented as of this encounter
--- OUTSIDE RECORDS SUMMARY | 2023-10-22 23:28 | External Medical Summary | Summary of Care ---
Author Name Unknown Organization [facility] Address [address] [place] [address] Phone [phone] Care Team Providers Care Flying Squad Salesperson Name Role Phone Yimi Melgoza MD Primary Care Provider +1- [phone] Encounter Details Date Type Department Care Team (Late st Contact Info) Description 09/12/2023 Orders Only Gynecology/Obstetrics [facility] [address] [place] [address] Alex Shah MD [address] [place] [address] Antepartum anemia complicating * Allergies Active Allergy [...] Route Frequency Start Date End Date Status otdnkirmpi-tmftpvehsmjln-cpxb eine 50-325-40 mg per tab (Fioricet) 1 [...] She prefers to have her US in [facility]. S/S of preeclampsia were reviewed. [...] money to get more. Never true 02/22/2023 [place] Depression Scale Answer Date Recorded [place] Depression Scale Total 1 09/12/2023 The thought [...] Description 09/12/2023 4:00 PM EST Pharmacy Pharmacy, [place] [address] [facility] [place] [address] Clinic, [place] [address] [place] [facility] [place] [address] Iron deficiency anemia, unspecified iron deficiency anemia type* 09/19/2023 10:00 AM EST Pharmacy Pharmacy, [place] [address] [facility] [place] [address] Clinic, An[place] [address] [facility] [place] [address] 09/27/2023 12:45 PM EST Imaging Radiology [facility] 2nd [facility] [address] [place] [address] 09/27/2023 1:45 PM EST Office Visit Gynecology/Obstetric s [facility] [address] [place] [address] Alissa Villanueva CRNP [address] [place] [address] Health Maintenance Due Date Last Done Comments [...] anemia, unspecified iron deficiency anemia type- Primary Antepartum anemia complicating - Primary Anemia, antepartum documented in this encounter Care Teams Flying Squad Salesperson Relationship Specialty Start Date End Date Yimi Melgoza MD [address] [place] [address] PCP - General 02/03/10 documented as of this encounter
--- OUTSIDE RECORDS SUMMARY | 2023-10-22 23:28 | External Medical Summary | Summary of Care ---
Author Name Unknown Organization [facility] Address [address] [place] [address] Phone [phone] Care Team Providers Care Piece Goods Packer Name Role Phone Yimi Melgoza MD Primary Care Provider +1- [phone] Reason for Visit * Reason Onset Date Comments Referral 09/12/2023 Encounter Details Date Type Department Care Team (Late st Contact Info) Description 09/12/2023 Telephone Gynecology/Obstetrics [facility] [address] [place] [address] Luann Ayoub CRNP [address] [place] [address] Referral Allergies Active Allergy Reactions Criticality Noted Date [...] Route Frequency Start Date End Date Status htkyoduxtz-iqdnvqkjiplxw-gkxf eine 50-325-40 mg per tab (Fioricet) 1 [...] prefers to have her US in [place]. S/S of preeclampsia were reviewed. Umbilical hernia [...] mRNA, LNP-s, No Pre serve, 2-Dose Series ([employer]) 01/29/2021,01/04/2021 DTaP Dipth/Tet/Acell Pertussis (Infanrix), Peds 09/10/1998 [...] money to get more. Never true 02/22/2023 [place] Depression Scale Answer Date Recorded [place] Depression Scale Total 1 09/12/2023 The thought [...] encounter Miscellaneous Notes * Telephone Encounter - Kristin Amaya OSA - 09/14/2023 12:18 PM EST Pt self scheduled for 09/15. * Telephone Encounter - Tiffany Dobbins OSA - 09/12/2023 1:06 PM EST Provider would like pt to be seen LD. I offered pt MondaySep 15 and she declined due to having work. Pt needs seen for: , shortness of breath at rest with reported pulse ox 91% during episodes; cardiac murmur Please call pt with an appt. Thank you documented in this encounter Plan of Treatment Upcoming Encounters Date Type Department Care Team (Late st Contact Info) Description 09/15/2023 2:00 PM EST Office Visit Cardiology, [facility] [address] [place] [address] Fabian Ferreira DO [address] [place] [address] 09/18/2023 1:45 PM EST Hem/Onc Treatment Hematology/Oncology Treatment, [place] [address] [place] [address] Liza, Chair [address] Hem On[address] [facility] [address] 09/19/2023 10:00 AM EST Pharmacy Pharmacy, [place] [address] [place] [address] Clinic, An[place] [address] [place] [address] 09/27/2023 12:45 PM EST Imaging Radiology [facility] 2nd Floor, [place] [address] [place] [address] 09/27/2023 1:45 PM EST Office Visit Gynecology/Obstetrics [facility] [address] [place] [address] Alissa Villanueva CRNP [address] [place] [address] Health Maintenance Due Date Last Done Comments Hepatitis B (3 of 3 - 3-dose series) 11/05/1998 09/10/1998, 05/28/1997 COVID-19 Vaccine (3 - 2023-24 season) 2023 01/29/2021, 01/04/2021 Influenza Vaccine (FLU [...] filedocumented as of this encounter Care Teams Piece Goods Packer Relationship Specialty Start Date End Date Yimi Melgoza MD [address] [place] [address] PCP - General 02/03/10 documented as of this encounter
--- OUTSIDE RECORDS SUMMARY | 2023-10-22 23:28 | External Medical Summary | Summary of Care ---
Author Name Unknown Organization [facility] Address [address] [place] [address] Phone [phone] Care Team Providers Care Song Writer Name Role Phone Yimi Melgoza MD Primary Care Provider +1- [phone] Reason for Visit * Reason Onset Date Comments Other 09/13/2023 Encounter Details Date Type Department Care Team (Late st Contact Info) Description 09/13/2023 Telephone Pharmacy, [place] [address] [place] [address] Clinic, [facility] [address] [place], [place] [id number] Other Allergies Active Allergy Reactions Criticality Noted Date [...] Route Frequency Start Date End Date Status elueqlvvqy-awqaqridmahcu-cdub eine 50-325-40 mg per tab (Fioricet) 1 [...] She prefers to have her US in [facility]. S/S of preeclampsia were reviewed. [...] money to get more. Never true 02/22/2023 [place] Depression Scale Answer Date Recorded [place] Depression Scale Total 1 09/12/2023 The thought [...] encounter Miscellaneous Notes * Telephone Encounter - Ladi Longoria first line production supervisor - 09/13/2023 2:30 PM EST Transferred call to [facility] documented in this encounter Plan of Treatment Upcoming Encounters Date Type Department Care Team (Late st Contact Info) Description 09/15/2023 2:00 PM EST Office Visit Cardiology, [address] [place] [address] Fabian Ferreira DO [address] [place] [address] 09/19/2023 10:00 AM EST Pharmacy Pharmacy, [place] [address] [place] [address] Clinic, [facility] [address] [place], [place] [id number] 09/27/2023 12:45 PM EST Imaging Radiology [facility] 2nd Floor, [place] [address] [place] [address] 09/27/2023 1:45 PM EST Office Visit Gynecology/Obstetrics [facility] [address] [place] [address] Alissa Villanueva CRNP [address] [place] [address] Health Maintenance Due Date Last Done Comments [...] filedocumented as of this encounter Care Teams Song Writer Relationship Specialty Start Date End Date Yimi Melgoza MD [address] [place] [address] PCP - General 02/03/10 documented as of this encounter
--- OUTSIDE RECORDS SUMMARY | 2023-10-22 23:28 | External Medical Summary | Summary of Care ---
Author Name Unknown Organization [facility] Address [address] [place] [address] Phone [phone] Care Team Providers Care Counter Hand Name Role Phone Yimi Melgoza MD Primary Care Provider +1- [phone] Encounter Details Date Type Department Care Team (Late st Contact Info) Description 09/04/2023 Documentation Patient Blood Management, [place] [address] [place] [address] Rangel Cain RN Allergies Active Allergy Reactions Criticality Noted Date [...] Route Frequency Start Date End Date Status mmjlwfqtbv-nwlcsjiojkohv-gnmj eine 50-325-40 mg per tab (Fioricet) 1 [...] She prefers to have her US in [facility]. S/S of preeclampsia were reviewed. [...] money to get more. Never true 02/22/2023 [place] Depression Scale Answer Date Recorded [place] Depression Scale Total 1 07/25/2023 The thought [...] as of this encounter Progress Notes * Rangel Cain RN - 09/04/2023 11:33 AM EST REFERRAL - Patient Blood Management Name: Shaista Rogers REQUESTING SERVICE: Kenn James OB REASON FOR REFERRAL: anemia in [place]: 10/25/23 Anemia Evaluation: Latest Reference Range & Units 08/25/23 15:52 HGB 12.0 - 15.3 g/dL 9.7 (L) HCT 36.0 - 45.2 % 31.8 (L) Iron 33 - 151 ug/dL 52 Iron Binding Capacity 250 - 425 ug/dL 536 (H) Transferrin Saturation Percent 15 - 55 % 10 (L) Ferritin 13 - 150 ng/mL 24 Vitamin B12 232 - 1,245 pg/mL 231 (L) Folic Acid >4.5 ng/mL 17.4 Immature Reticuloctye Fraction 2.5 - 20.6 % 30.7 (H) Reticulocyte Hemoglobin 29.7 - 37.4 pg 30.0 Absolute Reticulocyte 31.3 - 100.1 K/uL 89.8 Reticulocyte Percent 0.80 - 1.90 % 2.65 (H) Current Patient Medications: Medications that may impair hemostasis: none Medications that may impair iron absorption: none Patient Refused Blood Transfusion? (e.g. Orthodoxy): no Possible Contributing Factors: iron deficiency Treatment Recommendations: Recommend IV iron as per OB MTM protocol 09/04- Spoke with patient, agreeable to infusions at [facility], will submit OB MTM Thank you for allowing Blood Management to participate in the care of this patient. documented in this encounter Plan of Treatment Upcoming Encounters Date Type Department Care Team (Late st Contact Info) Description 09/12/2023 11:45 AM EST Office Visit Gynecology/Obstetrics [facility] [address] [place] [address] Luann Ayoub CRNP [address] [place] [address] Health Maintenance Due Date Last Done Comments [...] filedocumented as of this encounter Care Teams Counter Hand Relationship Specialty Start Date End Date Yimi Melgoza MD [address] [place] [address] PCP - General 02/03/10 documented as of this encounter
--- OUTSIDE RECORDS SUMMARY | 2023-10-22 23:28 | External Medical Summary | Summary of Care ---
Author Name Unknown Organization [facility] Address [address] [place] [address] Phone [phone] Care Team Providers Care Manufacturing Technology Professor Name Role Phone Yimi Melgoza MD Primary Care Provider +1- [phone] Reason for Visit * Reason Onset Date Comments Appointment 09/13/2023 Encounter Details Date Type Department Care Team (Late st Contact Info) Description 09/13/2023 Telephone Hematology/Oncology Treatment, [place] [address] [place] [address] Alex Shah MD [address] [place] [address] Appointment Allergies Active Allergy Reactions Criticality Noted [...] Route Frequency Start Date End Date Status spcpahqjmd-tjuhqkvfbqyka-fbed eine 50-325-40 mg per tab (Fioricet) 1 [...] money to get more. Never true 02/22/2023 [place] Depression Scale Answer Date Recorded [place] Depression Scale Total 1 09/12/2023 The thought [...] Gleason RN - 09/14/2023 11:53 AM EST [place] plan signed. Scheduling- Please schedule patient for 2 hour appt "Venofer 10/04" (Pablo). Patient will receive oneinfusion weekly x 3 weeks. Thank you. * Telephone Encounter - Ever Gleason RN - 09/13/2023 11:17 AM EST [place] plan for IV Venofer completed. Routed for signature. Prior auth not needed for IV Venofer. Can send to scheduling once plan is signed. documented in this encounter Plan of Treatment Upcoming Encounters Date Type Department Care Team (Late st Contact Info) Description 09/15/2023 2:00 PM EST Office Visit Cardiology, [facility] [address] [place] [address] Fabian Ferreira, [address] [place] [address] 09/18/2023 1:45 PM EST Hem/Onc Treatment Hematology/Oncology Treatment, [place] [address] [place] [address] Liza Chair 5 Hem Onc Scenery [address] [place] [address] 09/19/2023 10:00 AM EST Pharmacy Pharmacy, [facility] [address] [place] [facility] [place] [address] Clinic, [facility] [address] [place] [address] 09/27/2023 12:45 PM EST Imaging Radiology [facility] 2nd Floor, [place] [address] [place] [address] 09/27/2023 1:45 PM EST Office Visit Gynecology/Obstetrics [facility] [address] [place] [address] Alissa Villanueva CRNP [address] [place] [address] Health Maintenance Due Date Last Done Comments [...] filedocumented as of this encounter Care Teams Manufacturing Technology Professor Relationship Specialty Start Date End Date Yimi Melgoza MD [address] [place] [address] PCP - General 02/03/10 documented as of this encounter
--- OUTSIDE RECORDS SUMMARY | 2023-10-22 23:28 | External Medical Summary | Summary of Care ---
Author Name Unknown Organization [facility] Address [address] [place] [address] Phone [phone] Care Team Providers Care Hand Miter Operator Name Role Phone Yimi Melgoza MD Primary Care Provider +1- [phone] Encounter Details Date Type Department Care Team (Late st Contact Info) Description 09/11/2023 Telephone Gynecology/Obstetrics [facility] [address] [facility] [place] [address] Alex Shah MD [address] [place] [address] Allergies Active Allergy Reactions Criticality Noted Date Comments Amoxicillin 09/27/2001 Cephalosporins Hives,Itching 09/23/2010 Doxycycline Nausea/vomiting 04/07/2022 Penicillins 01/13/2010 documented as of this encounter (statuses as of 09/11/2023) Medications Medication Sig Dispensed Refills Start Date [...] Route Frequency Start Date End Date Status heqjagyknq-xegyavflxwrwt-cwqt eine 50-325-40 mg per tab (Fioricet) 1 TabletIndications:Migraine without aura and without status migrainosus, not intractable 1 Tablet OR Q4H PRN 05/18/2023 Active documented as of this encounter (statuses as of 09/11/2023) Active Problems Problem Noted Date Diagnosed Date [...] She prefers to have her US in [facility]. S/S of preeclampsia were reviewed. Umbilical hernia 04/14/2015 LUQ abdominal pain 09/20/2011 PATELLOFEMORAL PAIN SYNDROME, LEFT 06/01/2010 Pain in limb 06/01/2010 Menstruation, irregular 03/24/2010 Estimated Date of Delivery Comme nts Yes 10/25/2023 Based on last me nstrual period of 01/18/2023 documented as of this encounter (statuses as of 09/11/2023) Resolved Problems Problem Noted Date Diagnosed Date [...] as of this encounter (statuses as of 09/11/2023) Immunizations Name Administration Dates Next Due COVID-19 mRNA, LNP-s, No Pre serve, 2-Dose Series (SpeakPhone) 01/29/2021,01/04/2021 DTaP Dipth/Tet/Acell Pertussis (Infanrix), Peds 09/10/1998 [...] money to get more. Never true 02/22/2023 [place] Depression Scale Answer Date Recorded [place] Depression Scale Total 1 07/25/2023 The thought [...] encounter Miscellaneous Notes * Telephone Encounter - Agata Huff LPN - 09/11/2023 1:38 PM EST Pt aware already spoke with blood management * Telephone Encounter - Agata Huff LPN - 09/11/2023 1:38 PM EST ----- Message from Alex Shah MD sent at 09/04/2023 10:55 AM EST ----- Referral to Blood management ordered Please notify pr documented in this encounter Plan of Treatment Upcoming Encounters Date Type Department Care Team (Late st Contact Info) Description 09/12/2023 11:45 AM EST Office Visit Gynecology/Obstetrics [facility] [place] [address] [place] [address] Luann Ayoub CRNP [address] [place] [address] 09/12/2023 4:00 PM EST Pharmacy Pharmacy, [address] [address] Clinic, [place] [address] [place] [address] Health Maintenance Due Date Last Done Comments [...] filedocumented as of this encounter Care Teams Hand Miter Operator Relationship Specialty Start Date End Date Yimi Melgoza MD [address] [place] [address] PCP - General 02/03/10 documented as of this encounter
--- OUTSIDE RECORDS SUMMARY | 2023-10-22 23:28 | External Medical Summary | Summary of Care ---
Author Name Unknown Organization [facility] Address [address] [place] [address] Phone [phone] Care Team Providers Care Floor Steward/Stewardess Name Role Phone Yimi Melgoza MD Primary Care Provider +1- [phone] Reason for Visit * Reason Onset Date Comments Appointment 09/13/2023 Encounter Details Date Type Department Care Team (Late st Contact Info) Description 09/13/2023 Telephone Hematology/Oncology Treatment, [place] [address] [place] [address] Alex Shah MD [address] [place] [address] Appointment Allergies Active Allergy Reactions Criticality Noted [...] Route Frequency Start Date End Date Status moaqyhpjpy-hkdarnalgpzkr-luoc eine 50-325-40 mg per tab (Fioricet) 1 [...] She prefers to have her US in [facility]. S/S of preeclampsia were reviewed. [...] mRNA, LNP-s, No Pre serve, 2-Dose Series (Altruik) 01/29/2021,01/04/2021 DTaP Dipth/Tet/Acell Pertussis (Infanrix), Peds 09/10/1998 [...] money to get more. Never true 02/22/2023 [place] Depression Scale Answer Date Recorded [place] Depression Scale Total 1 09/12/2023 The thought [...] encounter Miscellaneous Notes * Telephone Encounter - Ever Gleason, STELLA - 09/13/2023 11:17 AM EST [place] plan for IV Venofer completed. Routed for signature. Prior auth not needed for IV Venofer. Can send to scheduling once plan is signed. documented in this encounter Plan of Treatment Upcoming Encounters Date Type Department Care Team (Late st Contact Info) Description 09/15/2023 2:00 PM EST Office Visit Cardiology, [facility] [address] [facility] [place] [address] Fabian Ferreira DO [address] [place] [address] 09/19/2023 10:00 AM EST Pharmacy Pharmacy, [place] [address] [place] [address] Clinic, [facility] [address] [place] [address] 09/27/2023 12:45 PM EST Imaging Radiology [facility] 2nd Floor, [place] [address] [facility] [place] [address] 09/27/2023 1:45 PM EST Office Visit Gynecology/Obstetrics [facility] 132 [facility] [place] [address] Alissa Villanueva CRNP 132 [facility] [place] [address] Health Maintenance Due Date Last Done Comments [...] filedocumented as of this encounter Care Teams Floor Steward/Stewardess Relationship Specialty Start Date End Date Yimi Melgoza MD [address] [place] [address] PCP - General 02/03/10 documented as of this encounter
--- OUTSIDE RECORDS SUMMARY | 2023-10-22 23:28 | External Medical Summary | Summary of Care ---
Author Name Unknown Organization [facility] Address [address] [place] [address] Phone [phone] Care Team Providers Care Wind Turbine Blade Repair Technician Name Role Phone Yimi Melgoza MD Primary Care Provider +1- [phone] Reason for Visit * Reason Onset Date Comments Appointment 09/13/2023 Encounter Details Date Type Department Care Team (Late st Contact Info) Description 09/13/2023 Telephone Hematology/Oncology Treatment, [place] [address] [place] [address] Alex Shah MD [address] [place] [address] Appointment Allergies Active Allergy Reactions Criticality Noted [...] Route Frequency Start Date End Date Status dpqtehazth-beritstgpktmx-crrw eine 50-325-40 mg per tab (Fioricet) 1 [...] money to get more. Never true 02/22/2023 [place] Depression Scale Answer Date Recorded [place] Depression Scale Total 1 09/12/2023 The [...] Gleason RN - 09/14/2023 11:53 AM EST [place] plan signed. Scheduling- Please schedule patient for 2 hour appt "Venofer 10/04" (Pablo). Patient will receive oneinfusion weekly x 3 weeks. Thank you. * Telephone Encounter - Ever Gleason RN - 09/13/2023 11:17 AM EST [place] plan for IV Venofer completed. Routed for signature. Prior auth not needed for IV Venofer. Can send to scheduling once plan is signed. documented in this encounter Plan of Treatment Upcoming Encounters Date Type Department Care Team (Late st Contact Info) Description 09/15/2023 2:00 PM EST Office Visit Cardiology, [facility] [address] [place] [address] Fabian Ferreira, [address] [place] [address] 09/18/2023 1:45 PM EST Hem/Onc Treatment Hematology/Oncology Treatment, [place] [address] [place] [address] Liza Chair 5 Hem Onc Scenery [address] [place] [address] 09/19/2023 10:00 AM EST Pharmacy Pharmacy, [place] [address] [facility] [place] [address] Clinic, [facility] [address] [place] [address] 09/27/2023 12:45 PM EST Imaging Radiology [facility] 2nd Floor, [place] [address] [place] [address] 09/27/2023 1:45 PM EST Office Visit Gynecology/Obstetrics [facility] [address] [place] [address] Alissa Villanueva CRNP [address] [place] [address] Health Maintenance Due Date Last Done Comments [...] filedocumented as of this encounter Care Teams Wind Turbine Blade Repair Technician Relationship Specialty Start Date End Date Yimi Melgoza MD [address] [place] [address] PCP - General 02/03/10 documented as of this encounter
--- OUTSIDE RECORDS SUMMARY | 2023-10-22 23:28 | External Medical Summary | Summary of Care ---
Author Name Unknown Organization [facility] Address [address] [place] [address] Phone [phone] Care Team Providers Care Thread Trimmer Name Role Phone Yimi Melgoza MD Primary Care Provider +1- [phone] Reason for Referral * Evaluate & Treat - Unlimited Visits (Within 10 days (routine)) - Pending Review Specialty Diagnoses / Procedures Referred By Contact Referred To Contact Cardiovascular Medicine / Cardiology Diagnoses Murmur, cardiac Shortness of breath Luann Ayoub CRNP [address] [place] [address] Referral ID Status Reason Start Date Expiration Date Visits Requested Visits Authorized [id number] Pending Review Specialty Services Required [phone] Question Answer Referral Priority Within 10 days (routine) Where should this appointment be scheduled? [facility] To which of the following clinics are you referring your patient? General Cardiology Clinic Comments , shortness of breath at rest with reported pulse ox 91% during episodes; cardiac murmur Reason for Visit * Reason Comments Return Visit Encounter Details Date Type Department Care Team (Late st Contact Info) Description 09/12/2023 11:45 AM EST Office Visit Gynecology/Obstetric s [facility] [place] [address] [place] [address] Luann Ayoub CRNP [address] [place] [address] Supervision of other normal , antepartum*; Obesity in , antepartum; Antepartum anemia complicating ; Maternal vitamin B12 deficiency; Murmur, cardiac; Shortness of breath; tachycardia affecting management of mother Allergies Active Allergy Reactions Criticality Noted Date [...] Route Frequency Start Date End Date Status sbssfuidqo-mksszafdxusun-nvnu eine 50-325-40 mg per tab (Fioricet) 1 [...] to have her US in [place] [place]. S/S of preeclampsia were reviewed. Umbilical hernia [...] money to get more. Never true 02/22/2023 [place] Depression Scale Answer Date Recorded [place] Depression Scale Total 1 09/12/2023 The thought [...] Sign Reading Time Taken Comments Blood Pressure 102/62 09/12/2023 11:37 AM EST Pulse 95 09/12/2023 11:37 AM EST Temperature - - Respiratory Rate - - Oxygen Saturation 98% 09/12/2023 11:37 AM EST Inhaled Oxygen Concentration - - Weight 99.3 kg (219 lb) 09/12/2023 11:37 AM EST Height - - Body Mass Index 37.59 08/25/2023 3:08 PM EST documented in this encounter Progress Notes * Luann Ayoub CRNP - 09/12/2023 11:39 AM EST 33w6d Baby is active; rare contractions. No leaking/bleeding. Reviewed labor precautions. Random episodes of SOB for the past week, always at rest. No asthma hx. Checked her pulse ox duringone such episode and reports SpO2 91%. No associated chest pain; feels like her lungs "get tight". Lungs bilaterally clear throughout, normal respiratory effort. <3 sec cap refill, SpO2 in reuzrx79% and pulse 95. Skin warm/pink. No acute distress. On exam, grade 2-3 systolic murmur. Working with blood management, hbg 9.7; discussed that murmur can occur with and/or anemia, and SOB could be anemia related, but given symptoms would advise cardiology evaluation to rule out more serious causes. Referral placed, scheduling to assist. Pt to seek immediate medical attentionfor worsening symptoms. Baby is tachycardic, 160s-170s, on auscultation, visible movement while listening. Pt reportsthis is the time of day when baby is normally most active. NST reactive. Growth u/s with next visit, return in 2 weeks. ASSESSMENT assessment with Non-stress Test completed on 09/12/2023 at 33w6d gestation for indication of tachycardia heart baseline: 175, down to 160 bpm Variability: Moderate Decelerations: absent Accelerations: present Contractions: Present occasionally, mild NST start time: 1200 NST stop time: 1237 NST strip reviewed, interpreted, and approved by OB provider, MARBELLA Chavira . NST strip stored in clinic storage file MARBELLA Chavira documented in this encounter Plan of Treatment Upcoming Encounters Date Type Department Care Team (Late st Contact Info) Description 09/12/2023 4:00 PM EST Pharmacy Pharmacy, [place] [address] [place] [address] Clinic, [place] [address] [place] [address] Iron deficiency anemia, unspecified iron deficiency anemia type* 09/19/2023 4:00 PM EST Pharmacy Pharmacy, [address] [address] Clinic, [place] [address] [place] [address] 09/27/2023 12:45 PM EST Imaging Radiology [facility] 2nd Floor, [place] [address] [facility] [place] [address] 09/27/2023 1:45 PM EST Office Visit Gynecology/Obstetric s [facility] [address] [facility] [place] [address] Alissa Villanueva CRNP 132 [facility] [place] [address] Scheduled Orders Name Type Priority Associated Diagnoses Orde r Schedule US PREG FOLLOW-UP EACH FETUS Medical Imaging Routine Obesity in , antepartum Supervision of other normal , antepartum Expected: 09/26/2023 (Approximate), Expires: 10/13/2024 Scheduled Referrals Name Type Priority Associated Diagnoses Orde r Schedule CARDIOLOGY REFERRAL OP Referral Within 10 days (routine) Murmur, cardiac Shortness of breath Ordered: 09/12/2023 Health Maintenance Due Date Last Done Comments Hepatitis B (3 of 3 - 3-dose series) 11/05/1998 09/10/1998, 05/28/1997 COVID-19 Vaccine (3 season) 2023 01/29/2021, 01/04/2021 Influenza Vaccine (FLU [...] complicating Anemia, antepartum Maternal vitamin B12 deficiency Murmur, cardiac Undiagnosed cardiac murmurs Shortness of breath tachycardia affecting management of mother Abnormality in heart rate/rhythm, unspecified as to episode of care or not applicable Iron deficiency anemia, unspecified iron deficiency anemia type- Primary documented in this encounter Care Teams Thread Trimmer Relationship Specialty Start Date End Date Yimi Melgoza MD [address] [place] [address] PCP - General 02/03/10 documented as of this encounter
--- OUTSIDE RECORDS SUMMARY | 2023-10-22 23:28 | External Medical Summary | Summary of Care ---
Author Name Unknown Organization [facility] Address [address] [place] [address] Phone [phone] Care Team Providers Care Machine Tracer Name Role Phone Yimi Melgoza MD Primary Care Provider +1- [phone] Reason for Visit * Reason Onset Date Comments Appointment 09/13/2023 Encounter Details Date Type Department Care Team (Late st Contact Info) Description 09/13/2023 Telephone Hematology/Oncology Treatment, [place] [address] [place] [address] Alex Shah MD [address] [place] [address] Appointment Allergies Active Allergy Reactions Criticality Noted [...] Route Frequency Start Date End Date Status szosdobary-hyyfljyzsqrsi-vnmr eine 50-325-40 mg per tab (Fioricet) 1 [...] She prefers to have her US in [facility]. S/S of preeclampsia were reviewed. [...] money to get more. Never true 02/22/2023 [place] Depression Scale Answer Date Recorded [place] Depression Scale Total 1 09/12/2023 The thought [...] Miscellaneous Notes * Telephone Encounter - Ever Gleason RN - 09/14/2023 11:53 AM EST [place] plan signed. Scheduling- Please schedule patient for 2 hour appt "Venofer 10/04" (Pablo). Patient will receive oneinfusion weekly x 3 weeks. Thank you. * Telephone Encounter - Ever Gleason RN - 09/13/2023 11:17 AM EST [place] plan for IV Venofer completed. Routed for signature. Prior auth not needed for IV Venofer. Can send to scheduling once plan is signed. documented in this encounter Plan of Treatment Upcoming Encounters Date Type Department Care Team (Late st Contact Info) Description 09/15/2023 2:00 PM EST Office Visit Cardiology, [facility] [address] [facility] [place] [address] Fabian Ferreira DO 132 [facility] [place] [address] 09/19/2023 10:00 AM EST Pharmacy Pharmacy, [place] [address] [place] [address] Clinic, [facility] [address] [place] [address] 09/27/2023 12:45 PM EST Imaging Radiology [facility] 2nd [facility] [address] [facility] [place] [address] 09/27/2023 1:45 PM EST Office Visit Gynecology/Obstetrics [facility] 132 [facility] [place] [address] Alissa [facility]ueva CRNP [facility] [place] [address] Health Maintenance Due Date Last Done Comments Hepatitis B (3 of 3 - 3-dose series) 11/05/1998 09/10/1998, 05/28/1997 COVID-19 Vaccine (24 season) 2023 01/29/2021, 01/04/2021 Influenza Vaccine (FLU [...] filedocumented as of this encounter Care Teams Machine Tracer Relationship Specialty Start Date End Date Yimi Melgoza MD [address] [place] [address] PCP - General 02/03/10 documented as of this encounter
--- OUTSIDE RECORDS SUMMARY | 2023-10-22 23:29 | External Medical Summary | Summary of Care ---
Author Name Unknown Organization [facility] Address [address] [place] [address] Phone [phone] Care Team Providers Care City Maintenance Manager Name Role Phone Yimi Melgoza MD Primary Care Provider +1- [phone] Reason for Visit * Reason Comments Return Visit Encounter Details Date Type Department Care Team (Late st Contact Info) Description 07/25/2023 1:30 PM EDT Office Visit Gynecology/Obstetric s [facility] [address] [place] [address] Luann Ayoub CRNP [address] [place] [address] Supervision of other normal , antepartum*; Obesity in , antepartum; Persistent cough Allergies Active Allergy Reactions Criticality Noted Date Comments Amoxicillin 09/27/2001 Cephalosporins Hives,Itching 09/23/2010 Doxycycline Nausea/vomiting 04/07/2022 Penicillins 01/13/2010 documented as of this encounter (statuses as of 07/25/2023) Medications Medication Sig Dispensed Refills Start Date End Date Status + DHA 27-1 & 250 MG Oral Therapy Pack Take by mouth. 0 Act mery Magnesium 400 MG Oral Tablet Take by mouth. 0 Active CoQ10 200 MG Oral Capsule Take by mouth. 0 Active Riboflavin 400 MG Oral Capsule Take 1 Capsule by mouth in the morning. 0 Active OneTouch Ultra 2 w/Device KitIndications:[place] pervision of other normal , antepartum,Histor y of PCOS Test blood sugar 4 times a day 1 Kit 0 03/15/2023 07/25/2023 Discontinued( Medication List Clean Up) OneTouch Ultra In Vitro Strip (Glucose Blood)Indications :Supervision of other normal , antepartum,Histor y of PCOS Test blood sugar 4 times a day 50 Strip 3 03/15/2023 07/25/2023 Discontinued( Medication List Clean Up) OneTouch Delica Lancets 33GIndications:[place] pervision of other normal , antepartum,Histor y of PCOS Test blood sugar 4 times a day 100 Each 3 03/15/2023 07/25/2023 Discontinued( Medication List Clean Up) Hospital, Clinic, or Other Facility Administered Medication Ordered Dose Route Frequency Start Date End Date Status tcmogudtoa-bgkjyxclptxsb-njej eine 50-325-40 mg per tab (Fioricet) 1 TabletIndications:Migraine without aura and without status migrainosus, not intractable 1 Tablet OR Q4H PRN 05/18/2023 Active documented as of this encounter (statuses as of 07/25/2023) Active Problems Problem Noted Date Diagnosed Date Supervision of other normal , antepartu m [...] to have her US in [facility]. S/S of preeclampsia were reviewed. Umbilical hernia 04/14/2015 LUQ abdominal pain 09/20/2011 PATELLOFEMORAL PAIN SYNDROME, LEFT 06/01/2010 Pain in limb 06/01/2010 Menstruation, irregular 03/24/2010 Estimated Date of Delivery Comme nts Yes 10/25/2023 Based on last me nstrual period of 01/18/2023 documented as of this encounter (statuses as of 07/25/2023) Resolved Problems Problem Noted Date Diagnosed Date [...] as of this encounter (statuses as of 07/25/2023) Immunizations Name Administration Dates Next Due COVID-19 mRNA, LNP-s, No Pre serve, 2-Dose Series ([employer]) 01/29/2021,01/04/2021 DTaP Dipth/Tet/Acell Pertussis (Infanrix), Peds 09/10/1998 [...] e alcohol) rare PHQ-2 Answer Date Recorded PHQ-2 Score 0 05/25/2020 Hunger Vital Sign Answer Date Recorded Within the past 12 months, y ou worried that your food would run out before you got the money to buy more. Never true 02/23/20 23 Within the past 12 months, t he food you bought just didn't last and you didn't have money to get more. Never true 02/22/2023 [place] Depression Scale Answer Date Recorded [place] Depression Scale Total 1 07/25/2023 The thought [...] Sign Reading Time Taken Comments Blood Pressure 108/68 07/25/2023 1:20 PM EDT Pulse - - Temperature - - Respiratory Rate - - Oxygen Saturation - - Inhaled Oxygen Concentration - - Weight 99.2 kg (218 lb 9.6 oz) 07/25/2023 1:20 P M EDT Height - - Body Mass Index 37.52 05/23/2023 10:02 AM EDT documented in this encounter Progress Notes * Chandni Randle LPN - 07/25/2023 1:23 PM EDT 26w6d Denies vaginal bleeding/rom + movement Growth US today Persistent cough for past 3 weeks * MARBELLA Topete - 07/25/2023 1:21 PM EDT 26w6d Completing 3 hr GTT. Growth u/s today - 58th %ile, MORENA 14.4, +cardiac activity. Baby is active. No leaking/bleeding/ctx. Discussed [facility]. Persistent cough x3 wks, worse at night. Tried robitussin, mucinex, humidifier. Multiple neg respiratory panels. Will obtain xray. 2 week return MARBELLA Chavira documented in this encounter Plan of Treatment Upcoming Encounters Date Type Department Care Team (Late st Contact Info) Description 08/08/2023 1:30 PM EST Office Visit Gynecology/Obstetrics [facility] [address] [facility] [place] [address] Luann Ayoub CRNP [address] [facility] [place] [address] Pending Results Name Type Priority Associated Diagnoses Date /Time CULTURE, URINE, QUANTITATIVE Lab Routine Supervision of other normal , antepartum 07/25/2023 1:41 PM EDT Scheduled Orders Name Type Priority Associated Diagnoses Orde r Schedule XR CHEST 2 VIEWS Medical Imaging Routine Persistent cough Ordered: 07/25/2023 Health Maintenance Due Date Last Done Comments Hepatitis B (3 of 3 - 3-dose series) 11/05/1998 09/10/1998, 05/28/1997 Depression Screening 05/24/2021 05/24/2020 COVID-19 Vaccine ( season) 2023 01/29/2021, 01/04/2021 Influenza Vaccine (FLU shot) (#1) 2023 10/06/2021, 06/22/2020, 06/22/2020 Pap Smear 03/15/2026 03/15/2023, 04/02, 11/18/2013, Additional history exists Cervical Cancer Screening 03/15/2028 HPV/Co-Test 03/15/2028 03/15/2023 DTaP,Tdap,and Td Vaccines (9 - Td or Tdap) 10/06/2030 10/06/2020, 08/03/2017, 04/26/2007, Additional history exists MENINGOCOCCAL (MENACTRA/MENVEO) Aged Out 04/20/2007 No longer eligible based on patient's age [...] or the puerperium, antepartum condition or complication Persistent cough Cough documented in this encounter Care Teams City Maintenance Manager Relationship Specialty Start Date End Date Yimi Melgoza MD [address] [place] [address] PCP - General 02/03/10 documented as of this encounter
--- OUTSIDE RECORDS SUMMARY | 2023-10-22 23:29 | External Medical Summary ---
Author Name Unknown Address Unknown Organization [id number]:[facility] [place] [facility] [address] [place] [address] Laboratory Report Ordering Provider Test Date Status JOSE STEEN 07/25/2023 11:08:22 Final Observation Date Value Abnormality Reference (Units ) Status Creatinine 07/25/2023 11:08:22 0.5 0.5-1.0 (mg/dL) Final Glomerular filtration rate/1.73 sq M.predicted [Volume Rate/Area] in Serum, Plasma or Blood by Creatinine-based formula (CKD-EPI) 07/25/2023 11:08:22 >90 >=60 (mL/min) Final eGFR is calculated based on the CKD-EPI 2020 equation Performing Location [facility] [place] [facility] [address] [place] [address]
--- OUTSIDE RECORDS SUMMARY | 2023-10-22 23:29 | External Medical Summary | Summary of Care ---
Author Name Unknown Organization [facility] Address [address] [place] [address] Phone [phone] Care Team Providers Care Rehabilitation Services Coordinator Name Role Phone Yimi Melgoza MD Primary Care Provider +1- [phone] Reason for Visit * Reason Comments Return Visit Encounter Details Date Type Department Care Team (Late st Contact Info) Description 08/08/2023 1:30 PM EST Office Visit Gynecology/Obstetric s [facility] [address] [place] [address] BackLuann rojas CRNP [address] [place] [address] Supervision of other normal , antepartum*; Obesity in , antepartum; Antepartum anemia complicating ; Maternal vitamin B12 deficiency Allergies Active Allergy Reactions Criticality Noted Date Comments Amoxicillin 09/27/2001 Cephalosporins Hives,Itching 09/23/2010 Doxycycline Nausea/vomiting 04/07/2022 Penicillins 01/13/2010 documented as of this encounter (statuses as of 08/08/2023) Medications Medication Sig Dispensed Refills Start Date [...] Active Vitamin B-12 1000 MCG Oral Tablet (Cyanocobalamin)Trudy cations:Antepartum anemia complicating Take 1 Tablet by mouth in the morning. 30 Tablet 3 07/26/2023 Active Vitron-C 65-125 MG Oral Tablet (Iron-Vitamin C 65-125 mg per tab) Take 1 Tablet by mouth in the morning and 1 Tablet before bedtime. 60 Tablet 3 07/31/2023 Active Additional Information Patient not taking.Reported on 08/08/2023 HM Iron Slow Release 142 (45 Fe) MG Oral Tablet Extended Release (Ferrous Sulfate ER) Take by mouth. Take 4 tablets daily 0 Active Hospital, Clinic, or Other Facility Administered Medication Ordered Dose Route Frequency Start Date End Date Status lnmgseudlh-ryfanulwiqxok-srti eine 50-325-40 mg per tab (Fioricet) 1 TabletIndications:Migraine without aura and without status migrainosus, not intractable 1 Tablet OR Q4H PRN 05/18/2023 Active documented as of this encounter (statuses as of 08/08/2023) Active Problems Problem Noted Date Diagnosed Date [...] She prefers to have her US in [facility]. S/S of preeclampsia were reviewed. Umbilical hernia 04/14/2015 LUQ abdominal pain 09/20/2011 PATELLOFEMORAL PAIN SYNDROME, LEFT 06/01/2010 Pain in limb 06/01/2010 Menstruation, irregular 03/24/2010 Estimated Date of Delivery Comme nts Yes 10/25/2023 Based on last me nstrual period of 01/18/2023 documented as of this encounter (statuses as of 08/08/2023) Resolved Problems Problem Noted Date Diagnosed Date [...] as of this encounter (statuses as of 08/08/2023) Immunizations Name Administration Dates Next Due COVID-19 mRNA, LNP-s, No Pre serve, 2-Dose Series ([employer]) 01/29/2021,01/04/2021 DTaP Dipth/Tet/Acell Pertussis (Infanrix), Peds 09/10/1998 [...] money to get more. Never true 02/22/2023 Alex Depression Scale Answer Date Recorded Alex Depression Scale Total 1 07/25/2023 The thought [...] Sign Reading Time Taken Comments Blood Pressure 104/62 08/08/2023 1:34 PM EST Pulse - - Temperature - - Respiratory Rate - - Oxygen Saturation - - Inhaled Oxygen Concentration - - Weight 98.4 kg (217 lb) 08/08/2023 1:34 PM EST Height - - Body Mass Index 37.25 05/23/2023 10:02 AM EDT documented in this encounter Progress Notes * Luann Ayoub CRNP - 08/08/2023 1:43 PM EST 28w6d Doing well, labs completed. Baby is active. Some rare BH ctx; no leaking, bleeding. Will consider Tdap at a future visit. Discussed RSV vaccine in , ACOG literature provided.Encouraged to check insurance requirements. Discussed kick counts and ctx, call with any concerns. Had a growth scan 07/25. Repeat in 4 weeks. Return in 2 weeks. MARBELLA Chavira * Chandni Randle LPN - 08/08/2023 1:36 PM EST 28w6d Denies vaginal bleeding/rom + movement Would like to wait for tdap documented in this encounter Plan of Treatment Upcoming Encounters Date Type Department Care Team (Late st Contact Info) Description 08/25/2023 2:15 PM EST Imaging Radiology [facility] 2nd [facility] [address] [place] [address] 08/25/2023 3:30 PM EST Office Visit Gynecology/Obstetrics [facility] [address] [facility] [place] [address] Alex Shah MD [address] [facility] [place] [address] Scheduled Orders Name Type Priority Associated Diagnoses Orde r Schedule US PREG FOLLOW-UP EACH FETUS Medical Imaging Routine Obesity in , antepartum Supervision of other normal , antepartum Expected: 08/22/2023 (Approximate), Expires: 09/07/2024 Health Maintenance Due Date Last Done Comments [...] deficiency documented in this encounter Care Teams Rehabilitation Services Coordinator Relationship Specialty Start Date End Date Yimi Melgoza MD [address] [place] [address] PCP - General 02/03/10 documented as of this encounter
--- OUTSIDE RECORDS SUMMARY | 2023-10-22 23:29 | External Medical Summary ---
Author Name Unknown Address Unknown Organization [id number]:LABORATORY [facility] [place] - [address] [facility] [address] Laboratory Report Ordering Provider Test Date Status ENIO,BACKER 07/25/2023 11:08:22 Final Observation Date Value Abnormality Reference (Units ) Status WBC, Total 07/25/2023 11:08:22 9.71 4.00-10.8 0 (K/uL) Final RBC 07/25/2023 11:08:22 3.51 3.85-5.15 (M/uL) Final Hemoglobin 07/25/2023 11:08:22 10.1 Below low normal 12 .0-15.3 (g/dL) Final Anemia reflex testing trigge rs on a HGB < 12.0 for Females and HGB < 13.0 for Males in accordance with the WHO Anemia Guidelines
Anemia reflex testing triggers on a HGB < 12.0 for Females and HGB < 13.0 for Males in accordance with the WHO Anemia Guidelines HCT 07/25/2023 11:08:22 32.8 Below low normal 36. 0-45.2 (%) Final MCV 07/25/2023 11:08:22 93.4 81.5-97.5 (fL) Final MCH 07/25/2023 11:08:22 28.8 27.0-34.0 (pg) Final MCHC 07/25/2023 11:08:22 30.8 32.0-36.0 (g/dL) Final RDW 07/25/2023 11:08:22 13.2 11.5-15.5 (%) Final Platelets 07/25/2023 11:08:22 262 140-400 (K /uL) Final MPV 07/25/2023 11:08:22 10.3 6.6-11.1 ( fL) Final Nucleated erythrocytes/100 leukocytes [Ratio] in Blood by Automated count 07/25/2023 11:08:22 0 <=0 (/100 WBCs) Final Performing Location LABORATORY [facility] [place] - [address] [facility] [address]
--- OUTSIDE RECORDS SUMMARY | 2023-10-22 23:29 | External Medical Summary ---
Author Name Unknown Address Unknown Organization K0G:LABORATORY [facility] - [address] [place] [address] Laboratory Report Ordering Provider Test Date Status ANALI ALEJANDRA 05/23/2023 11:52:40 Final Observation Date Value Abnormality Reference (Units ) Status Glucose, 2-hr post glucose challenge 05/23/2023 11:52:40 144 70-154 (mg/dL) Final Performing Location LABORATORY [facility] 0 - [address] [place] [address]
--- OUTSIDE RECORDS SUMMARY | 2023-10-22 23:29 | External Medical Summary ---
Author Name Unknown Address Unknown Organization [id number]:LABORATORY [facility] [place] - [address] [place] [address] Laboratory Report Ordering Provider Test Date Status JOSE STEEN 07/25/2023 11:08:22 Final Observation Date Value Abnormality Reference (Units ) Status Vitamin B12 07/25/2023 11:08:22 197 Below low normal 2 32-1245 (pg/mL) Final Performing Location LABORATORY [facility] - [address] [place] [address]
--- OUTSIDE RECORDS SUMMARY | 2023-10-22 23:29 | External Medical Summary ---
Author Name Unknown Address Unknown Organization K0G:LABORATORY [facility] - [address] [place] [address] Laboratory Report Ordering Provider Test Date Status JOSE STEEN 07/25/2023 14:16:43 Final Observation Date Value Abnormality Reference (Units ) Status Glucose [Mass/volume] in Serum or Plasma --3 hours post dose glucose 07/25/2023 14:16:43 85 70-139 (mg/dL) Final Performing Location LABORATORY [facility] 0 - [address] [place] [address]
--- OUTSIDE RECORDS SUMMARY | 2023-10-22 23:29 | External Medical Summary | Summary of Care ---
Author Name Unknown Organization [facility] Address [address] [place] [address] Phone [phone] Care Team Providers Care Engineer Of System Development Name Role Phone Yimi Melgoza MD Primary Care Provider +1- [phone] Reason for Visit * Reason Comments Outpatient Testing Encounter Details Date Type Department Care Team (Late st Contact Info) Description 07/25/2023 11:20 AM EDT Laboratory Laboratory, [facility] [address] [place] [address] [facility] [address] [place] [address] Supervision of other normal , antepartum Allergies Active Allergy Reactions Criticality Noted Date Comments Amoxicillin 09/27/2001 Cephalosporins Hives,Itching 09/23/2010 Doxycycline Nausea/vomiting 04/07/2022 Penicillins 01/13/2010 documented as of this encounter (statuses as of 07/25/2023) Medications Medication Sig Dispensed Refills Start Date End Date Status + DHA 27-1 & 250 MG Oral Therapy Pack Take by mouth. 0 Active Hospital, Clinic, or Other Facility Administered Medication Ordered Dose Route Frequency Start Date End Date Status reencirbfj-jzehahsvotsjq-uebi eine 50-325-40 mg per tab (Fioricet) 1 [...] mRNA, LNP-s, No Pre serve, 2-Dose Series ([employer]) 01/29/2021,01/04/2021 DTaP Dipth/Tet/Acell Pertussis (Infanrix), Peds 09/10/1998 [...] money to get more. Never true 02/22/2023 [place] Depression Scale Answer Date Recorded [place] Depression Scale Total 1 07/25/2023 The thought [...] 08/08/2023 1:30 PM EST [facility] [address] [place] [address] Backer, MARBELLA Leonard [address] [place] [address] Pending Results Name Type Priority Associated Diagnoses Date /Time CBC WITH WBC DIFFERENTIAL AND ANEMIA REFLEX WORKUP Lab Routine Supervision of other normal , antepartum 07/25/2023 11:08 AM EDT SYPHILIS ANTIBODY SCREEN WITH REFLEX TO RPR Lab Routine Supervision of other normal , antepartum 07/25/2023 11:08 AM EDT GESTATIONAL GLUCOSE TOLERANCE, 3 HOUR Lab Routine Supervision of other normal , antepartum 07/25/2023 11:08 AM EDT ANEMIA CBC Lab Routine Supervision of other normal , antepartum 07/25/2023 11:08 AM EDT DIFFERENTIAL, AUTOMATED Lab Routine Supervision of other normal , antepartum 07/25/2023 11:08 AM EDT ANEMIA REFLEX CHEMISTRY HOLD Lab Routine Supervision of other normal , antepartum 07/25/2023 11:08 AM EDT SYPHILIS ANTIBODY SCREEN Lab Routine Supervision of other normal , antepartum 07/25/2023 11:08 AM EDT 100-G GESTATIONAL GLUCOSE, 3 HOUR Lab Routine Supervision of other normal , antepartum 07/25/2023 2:16 PM EDT Health Maintenance Due Date Last Done Comments [...] Procedure Name Priority Date/Time Associated Diagnosis Comments 100-G GESTATIONAL GLUCOSE, 2 HOUR Routine 07/25/2023 1:15 PM EDT Supervision of other normal , antepartum 100-G GESTATIONAL GLUCOSE, 1 HOUR Routine 07/25/2023 12:23 PM EDT Supervision of other normal , antepartum 100-G GESTATIONAL GLUCOSE, FASTING Routine 07/25/2023 11:08 AM EDT Supervision of other normal , antepartum documented in this encounter Results * 100-G GESTATIONAL GLUCOSE, 2 HOUR (07/25/2023 1:15 PM EDT) 100-g Gestational Glucose, 2 Hour 149 70 - 154 mg/dL 07/25/2023 2:19 PM EDT [facility] Blood Venous blood specimen / Unknown Venipuncture / Unknown 07/25/2023 1:15 PM EDT 07/25/2023 1:15 PM EDT Luann MILLERNP LAB BLOOD O RDERABLES LABORATORY [place] [facility] [place] [address] * 100-G GESTATIONAL GLUCOSE, 1 HOUR (07/25/2023 12:23 PM EDT) 100-g Gestational Glucose, 1 Hour 179 70 - 179 mg/dL 07/25/2023 12:52 PM EDT LAB[facility]ORY [place] Blood Venous blood specimen / Unknown Venipuncture / Unknown 07/25/2023 12:23 PM EDT 07/25/2023 12:24 PM EDT Luann TYSON LAB BLOOD O RDERABLES LABORATORY [facility] [place] [address] * (ABNORMAL) 100-G GESTATIONAL GLUCOSE, FASTING (07/25/2023 11:08 AM EDT) 100-g Gestational Glucose, Fasting 98(H) 70 - 94 mg/dL 07/25/2023 12:12 PM EDT LAB[facility]ORY [place] [facility] Blood Venous blood specimen / Unknown Venipuncture / Unknown 07/25/2023 11:08 AM EDT 07/25/2023 11:08 AM EDT Narrative LAB[facility]ATORY [place] - 07/25/2023 12:12 PM EDT Based on ACOG guideline, gestational diabetes mellitus is diagnosed when any of the following is met: Fasting is greater than or equal to 95 mg/dL 1 hour is greater than or equal to 180 mg/dL 2 hour is greater than or equal to 155 mg/dL 3 hour is greater than or equal to 140 mg/dL Luann Messer Mega TYSON LAB BLOOD O RDERABLES LAB[facility]ATORY [facility] [address] [place] [address] documented in this encounter Visit Diagnoses Diagnosis Supervision of other normal , antepartum documented in this encounter Care Teams Engineer Of System Development Relationship Specialty Start Date End Date Yimi Melgoza MD [address] [facility] [place] [address] PCP - General 02/03/10 documented as of this encounter
--- OUTSIDE RECORDS SUMMARY | 2023-10-22 23:29 | External Medical Summary | Summary of Care ---
Author Name Unknown Organization [facility] Address [address] [place] [address] Phone [phone] Care Team Providers Care Litigation Support Analyst Name Role Phone Yimi Melgoza MD Primary Care Provider +1- [phone] Reason for Visit * Reason Comments Return Visit Encounter Details Date Type Department Care Team (Late st Contact Info) Description 08/25/2023 3:30 PM EST Office Visit Gynecology/Obstetric s [facility] [address] [place] [address] Alex Shah MD [address] [place] [address] Obesity in , antepartum*; Supervision of other normal , antepartum; Antepartum anemia complicating ; Maternal vitamin B12 deficiency Allergies Active Allergy Reactions Criticality Noted Date Comments Amoxicillin 09/27/2001 Cephalosporins Hives,Itching 09/23/2010 Doxycycline Nausea/vomiting 04/07/2022 Penicillins 01/13/2010 documented as of this encounter (statuses as of 08/25/2023) Medications Medication Sig Dispensed Refills Start Date [...] Route Frequency Start Date End Date Status vylnnxnudi-tczsvocrgknqi-nmzo eine 50-325-40 mg per tab (Fioricet) 1 TabletIndications:Migraine without aura and without status migrainosus, not intractable 1 Tablet OR Q4H PRN 05/18/2023 Active documented as of this encounter (statuses as of 08/25/2023) Active Problems Problem Noted Date Diagnosed Date [...] She prefers to have her US in [facility]. S/S of preeclampsia were reviewed. Umbilical hernia 04/14/2015 LUQ abdominal pain 09/20/2011 PATELLOFEMORAL PAIN SYNDROME, LEFT 06/01/2010 Pain in limb 06/01/2010 Menstruation, irregular 03/24/2010 Estimated Date of Delivery Comme nts Yes 10/25/2023 Based on last ny nstrual period of 01/18/2023 documented as of this encounter (statuses as of 08/25/2023) Resolved Problems Problem Noted Date Diagnosed Date [...] as of this encounter (statuses as of 08/25/2023) Immunizations Name Administration Dates Next Due COVID-19 [...] money to get more. Never true 02/22/2023 [place] Depression Scale Answer Date Recorded [place] Depression Scale Total 1 07/25/2023 The thought [...] Sign Reading Time Taken Comments Blood Pressure 104/60 08/25/2023 3:08 PM EST Pulse - - Temperature - - Respiratory Rate - - Oxygen Saturation - - Inhaled Oxygen Concentration - - Weight 98.9 kg (218 lb) 08/25/2023 3:08 PM EST Height 162.6 cm (5' 4") 08/25/2023 3:08 PM EST Body Mass Index 37.42 08/25/2023 3:08 PM EST documented in this encounter Progress Notes * Alex Shah MD - 08/25/2023 3:39 PM EST Doing wel No complaints Growth today 53% MORENA ; 15.3 * Georgia Patel LPN - 08/25/2023 3:23 PM EST 31w2d Pt denies any concerns. documented in this encounter Plan of Treatment Upcoming Encounters Date Type Department Care Team (Late st Contact Info) Description 09/12/2023 11:45 AM EST Office Visit Gynecology/Obstetrics [facility] [address] [place] [address] BackerLuann CRNP [address] [place] [address] Pending Results Name Type Priority Associated Diagnoses Date /Time CBC WITH WBC DIFFERENTIAL AND ANEMIA REFLEX WORKUP Lab Routine Antepartum anemia complicating 08/25/2023 3:52 PM EST ANEMIA CBC Lab Routine Antepartum anemia complicating 08/25/2023 3:52 PM EST DIFFERENTIAL, AUTOMATED Lab Routine Antepartum anemia complicating 08/25/2023 3:52 PM EST ANEMIA REFLEX CHEMISTRY HOLD Lab Routine Antepartum anemia complicating 08/25/2023 3:52 PM EST Health Maintenance Due Date Last [...] as of this encounter Visit Diagnoses Diagnosis Obesity in , antepartum- Primary Obesity complicating , childbirth, or the puerperium, antepartum condition or complication Supervision of other normal , antepartum Antepartum anemia complicating Anemia, antepartum Maternal vitamin B12 deficiency documented in this encounter Care Teams Litigation Support Analyst Relationship Specialty Start Date End Date Yimi Melgoza MD [address] [place] [address] PCP - General 02/03/10 documented as of this encounter
--- OUTSIDE RECORDS SUMMARY | 2023-10-22 23:29 | External Medical Summary ---
Author Name Unknown Address Unknown Organization [id number]:LAB[facility]ATORY [facility] - [address] [place] [address] Laboratory Report Ordering Provider Test Date Status JOSE STEEN 07/25/2023 12:23:24 Final Observation Date Value Abnormality Reference (Units ) Status Glucose [Mass/volume] in Serum or Plasma --1 hour post dose glucose 07/25/2023 12:23:24 179 70-179 (mg/dL) Final Performing Location [facility] 0 [address] [place] [address]
--- OUTSIDE RECORDS SUMMARY | 2023-10-22 23:29 | External Medical Summary ---
Author Name Unknown Address Unknown Organization [id number]:[facility]ORY [facility] [place] [address] [facility] [address] Laboratory Report Ordering Provider Test Date Status JOSE STEEN 07/25/2023 11:08:22 Final Observation Date Value Abnormality Reference (Units ) Status Retic, % (auto) 07/25/2023 11:08:22 2.96 Above high normal 0.80-1.90 (%) Final Reticulocytes, Absolute 07/25/2023 11:08:22 105.1 Above high normal 31.3-100.1 (K/uL) Final Reticulocyte fraction, immature 07/25/2023 11:08:22 26.4 Above high normal 2.5-20.6 (%) Final Reticulocyte HGB 07/25/2023 11:08:22 30.9 29.7-37.4 (pg) Final Performing Location LABORATORY [facility] [place] [address] [facility] [address]
--- OUTSIDE RECORDS SUMMARY | 2023-10-22 23:29 | External Medical Summary ---
Author Name Unknown Address Unknown Organization [id number]:LABORATORY [facility] - [address] [place] [address] Laboratory Report Ordering Provider Test Date Status SUSHANT ALEJANDRARAIMUNDO 05/23/2023 09:50:00 Final Based on ACOG guideline, ges tational diabetes mellitus is diagnosed when any of the following is met:
Fasting is greater than or equal to 95 mg/dL
1 hour is greater than or equal to 180 mg/dL
2 hour is greater than or equal to 155 mg/dL
3 hour is greater than or equal to 140 mg/dL Observation Date Value Abnormality Reference (Units ) Status Glucose, fasting 05/23/2023 09:50:00 92 70- 94 (mg/dL) Final Performing Location LABORATORY [facility]-[address] 0 - [address] [place] [address]
--- OUTSIDE RECORDS SUMMARY | 2023-10-22 23:29 | External Medical Summary ---
Author Name Unknown Address Unknown Organization [id number]:[facility] - [address] [place] [address] Laboratory Report Ordering Provider Test Date Status AYAN STEENER 07/25/2023 13:15:27 Final Observation Date Value Abnormality Reference (Units ) Status Glucose, 2-hr post glucose challenge 07/25/2023 13:15:27 149 70-154 (mg/dL) Final Performing Location [facility] 0 - [address] [place] [address]
--- OUTSIDE RECORDS SUMMARY | 2023-10-22 23:29 | External Medical Summary | Summary of Care ---
Author Name Unknown Organization [facility] Address [address] [place] [address] Phone [phone] Care Team Providers Care Transit Mix Operator Name Role Phone Yimi Melgoza MD Primary Care Provider [phone]- [phone] Reason for Visit * Reason Comments Outpatient Testing Encounter Details Date Type Department Care Team Description 05/23/2023 Laboratory Laboratory, [facility] [address] [place] [address] [facility] [address] [place] [address] Abnormal glucose tolerance in mother complicating Allergies Active Allergy Reactions Severity Noted Date Comments Amoxicillin 09/27/2001 Cephalosporins Hives,Itching 09/23/2010 Doxycycline Nausea/vomiting 04/07/2022 Penicillins 01/13/2010 documented as of this encounter (statuses as of 05/23/2023) Medications Medication Sig Dispensed Refills Start Date End Date Status + DHA 27-1 & 250 MG Oral Therapy Pack Take by mouth. 0 Active Rothman HealthcareTouch Ultra 2 w/Device KitIndications:Supervi nelli of other normal , antepartum,History of PCOS Test blood sugar 4 times a day 1 Kit 0 03/15/2023 Active OneTouch Ultra In Vitro Strip (Glucose Blood)Indications:Supe rvision of other normal , antepartum,History of PCOS Test blood sugar 4 times a day 50 Strip 3 03/15/2023 Active OneTouch Delica Lancets 33GIndications:Supervi nelli of other normal , antepartum,History of PCOS Test blood sugar 4 times a day 100 Each 3 03/15/2023 Active Hospital, Clinic, or Other Facility Administered Medication Ordered Dose Route Frequency Start Date End Date Status qacstozges-aqiikkzxjnewv-ctfb eine 50-325-40 mg per tab (Fioricet) 1 TabletIndications:Migraine without aura and without status migrainosus, not intractable 1 Tablet OR Q4H PRN 05/18/2023 Active documented as of this encounter (statuses as of 05/23/2023) Active Problems Problem Noted Date Supervision of other normal , a ntepartum 03/15/2023 De Quervain's disease (tenosynovitis) Obesity in , antepartum 020 Overview: Class II obesity (BMI 35-39.9) - growth scan q4 weeks -Early GDM screening-- checking blood sugars rather than glucola - weekly NST starting 37w Last Assessment & Plan: Discussed importace of growth ultrasound every 4 weeks. She prefers to [facility]. S/S of preeclampsia were reviewed. Umbilical hernia 04/14/2015 LUQ abdominal pain 09/20/2011 PATELLOFEMORAL PAIN SYNDROME, LEFT 06/01 Pain in limb 06/01/2010 Menstruation, irregular 03/24/2010 Estimated Date of Delivery Comme nts Yes 10/25/2023 Based on last me nstrual period of 01/18/2023 documented as of this encounter (statuses as of 05/23/2023) Resolved Problems Problem Noted Date Resolved Date Trauma during 10/21/2020 04/18/20 Antepartum anemia complicating 020 04/18/2023 Overview: Hgb 9.5 at 28 weeks [...] Used letrozole Impaired glucose in , antepartum 201910/20/2020 Overview: Failed early 1 hr GTT, passed 3 hr GTT Last Assessment & Plan: Reviewed negative early 3hour GTT screening. Discussed the importance of performing GDM screen again at 26-28 weeks. Abdominal pain, periumbilical 04/14/2015 Vomiting 09/20/2011 07/06/2020 Overview: ICD-10 update of inactive term Headache 03/24/2010 04/18/2023 Overview: ICD-10 update of inactive term documented as of this encounter (statuses as of 05/23/2023) Immunizations Name Administration Dates Next Due COVID-19 mRNA, LNP-s, No Pre serve, 2-Dose Series ([place]) 01/29/2021,01/04/2021 DTaP - Dipth/Tet/Acell Pertussis 09/10/1998 HPV Vaccine, 4-Valent 06/21/2007,04/20/2007,10/03 Hepatitis B, [...] = 0.6 oz pur e alcohol) rare Food Insecurity Answer Date Recorded Within the past 12 months, y ou worried that your food would run out before you got money to buy more. Never true 02/22/2023 Within the past 12 months, t he food you bought just didn't last and you didn't have money to get more. Never true 02/22/2023 Estimated Date of Delivery Comme nts Yes 10/25/2023 Based on last me nstrual period of 01/18/2023 Sex Assigned at Date Recorded Female 02/22/2023 7:54 PM E DT Job Start Date Occupation Industry Not on file Not on file Not on file documented as of this encounter Plan of Treatment Upcoming Encounters Date Type Specialty Care Team Description 06/14/2023 Imaging Radiology 06/21/2023 Office Visit Gynecology Obstetrics Backer, MARBELLA Leonard [address] [place] [address] Pending Results Name Type Priority Associated Diagnoses Date /Time GESTATIONAL GLUCOSE TOLERANCE, 3 HOUR Lab Routine Abnormal glucose tolerance in mother complicating 05/23/2023 9:50 AM EDT 100-G GESTATIONAL GLUCOSE, 1 HOUR Lab Routine Abnormal glucose tolerance in mother complicating 05/23/2023 10:57 AM EDT 100-G GESTATIONAL GLUCOSE, 2 HOUR Lab Routine Abnormal glucose tolerance in mother complicating 05/23/2023 11:52 AM EDT 100-G GESTATIONAL GLUCOSE, 3 HOUR Lab Routine Abnormal glucose tolerance in mother complicating 05/23/2023 12:55 PM EDT Health Maintenance Due Date Last Done Comments Hepatitis B (3 of 3 - 3-dose series) 11/05/1998 09/10/1998, 05/28/1997 COVID-19 Vaccine (3 - Pfizer series) 03/26/2021 01/29/2021, 01/04/2021 Depression Screening, Annual for Pts 12 and Over 05/24/2021 05/24/2020 Influenza Vaccine (FLU shot) (#1) 2023 10/06/2021, 06/22/2020, 06/22/2020 Pap Smear 03/15/2026 03/15/2023, 04/02, 11/18/2013, Additional history exists Cervical Cancer Screening 03/15/2028 HPV/Co-Test 03/15/2028 03/15/2023 DTaP,Tdap,and Td Vaccines (9 - Td or Tdap) 10/06/2030 10/06/2020, 08/03/2017, 04/26/2007, Additional history exists MENINGOCOCCAL (MENACTRA/MENVEO) Aged Out 04/20/2007 No longer eligible based on patient's age to complete this topic GARDASIL-HPV IMMUNIZATION SERIES Completed 06/21/2007, 04/20/2007, 10/30/2006 Hepatitis C Screening Completed 03/15/2023 , 03/15/2023, 03/15/2023 Pneumococcal Vaccine: Pediatrics (0 to 5 Years) and At-Risk Patients (6 to 64 Years) Aged Out No longer eligible based on patient's age to complete this topic documented as of this encounter Medical Devices Not on filedocumented as of this encounter Procedures Procedure Name Priority Date/Time Associated Diagnosis Comments 100-G GESTATIONAL GLUCOSE, FASTING Routine 05/23/2023 9:50 AM EDT Abnormal glucose tolerance in mother complicating documented in this encounter Results * 100-G GESTATIONAL GLUCOSE, FASTING (05/23/2023 9:50 AM EDT) 100-g Gestational Glucose, Fasting 92 70 - 94 mg/dL 05/23/2023 1:12 PM EDT [facility] Blood Venous blood specimen / Unknown Venipuncture / Unknown 05/23/2023 9:50 AM EDT 05/23/2023 10:32 AM EDT Narrative [facility] - 05/23/2023 1:12 PM EDT Based on ACOG guideline, gestational diabetes mellitus is diagnosed when any of the following is met: Fasting is greater than or equal to 95 mg/dL 1 hour is greater than or equal to 180 mg/dL 2 hour is greater than or equal to 155 mg/dL 3 hour is greater than or equal to 140 mg/dL Alissa TYSON LAB BLOOD ORDERABLES LABORATORY [facility] [place] [address] documented in this encounter Visit Diagnoses Diagnosis Abnormal glucose tolerance in mother complicating Abnormal maternal glucose tolerance, complicating , childbirth, or the puerperium, unspecified as to episode of care documented in this encounter Care Teams Transit Mix Operator Relationship Specialty Start Date End Date Yimi Melgoza MD [address], [place] [id number] PCP - General 02/03/10 documented as of this encounter
--- OUTSIDE RECORDS SUMMARY | 2023-10-22 23:29 | External Medical Summary ---
Author Name Unknown Address Unknown Organization [id number]:[facility]ORY [facility] [place] [address] [facility]. [facility] [address] Laboratory Report Ordering Provider Test Date Status ENIOBACKER 07/25/2023 11:08:22 Final Observation Date Value Abnormality Reference (Units ) Status SYNC LEUKOCYTES IN BLOOD BY AUTOMATED COUNT 07/25/2023 11:08:22 9.71 4.00-10.80 (K/uL) Final Segs 07/25/2023 11:08:22 75.6 Above high normal 40.0-75.0 (%) Final Lymphs % 07/25/2023 11:08:22 16.2 Below low normal 18.0-42.0 (%) Final Monos 07/25/2023 11:08:22 6.4 1.0-11.0 (%) Final Eosinophils 07/25/2023 11:08:22 0.7 0.0-6.0 (%) Final Basos 07/25/2023 11:08:22 0.2 0.0-2.0 (%) Final Immature Granulocyte, Percent 07/25/2023 11:08:22 0.9 0.0-2.0 (%) Final Absolute Segs 07/25/2023 11:08:22 7.34 1.80-7.70 (K/uL) Final Lymphs, absolute 07/25/2023 11:08:22 1.57 1.00-4.80 (K/ul) Final Monos, Abs 07/25/2023 11:08:22 0.62 0.00-1.10 (K/uL) Final Eos, Abs 07/25/2023 11:08:22 0.07 0.00-0.70 (K/uL) Final Basos, Abs 07/25/2023 11:08:22 0.02 0.00-0.20 (K/uL) Final Immature Granulocytes, Number 07/25/2023 11:08:22 0.09 0.00-0.20 (K/uL) Final Performing Location LAB[facility]ORY [facility] [place] - [address] [facility] [address]
--- OUTSIDE RECORDS SUMMARY | 2023-10-22 23:29 | External Medical Summary ---
Author Name Unknown Address Unknown Organization [id number]:[facility] [place] - [address] [place], [place] [address] [address] Laboratory Report Ordering Provider Test Date Status BIN HERNANDEZ 08/25/2023 15:52:00 Final Observation Date Value Abnormality Reference (Units ) Status WBC, Total 08/25/2023 15:52:00 8.86 4.00-10.8 0 (K/uL) Final RBC 08/25/2023 15:52:00 3.46 3.85-5.15 (M/uL) Final Hemoglobin 08/25/2023 15:52:00 9.7 Below low normal 12 .0-15.3 (g/dL) Final Anemia reflex testing trigge rs on a HGB < 12.0 for Females and HGB < 13.0 for Males in accordance with the WHO Anemia Guidelines
Anemia reflex testing triggers on a HGB < 12.0 for Females and HGB < 13.0 for Males in accordance with the WHO Anemia Guidelines HCT 08/25/2023 15:52:00 31.8 Below low normal 36. 0-45.2 (%) Final MCV 08/25/2023 15:52:00 91.9 81.5-97.5 (fL) Final MCH 08/25/2023 15:52:00 28.0 27.0-34.0 (pg) Final MCHC 08/25/2023 15:52:00 30.5 32.0-36.0 (g/dL) Final RDW 08/25/2023 15:52:00 13.2 11.5-15.5 (%) Final Platelets 08/25/2023 15:52:00 270 140-400 (K /uL) Final MPV 08/25/2023 15:52:00 10.0 6.6-11.1 ( fL) Final Nucleated erythrocytes/100 leukocytes [Ratio] in Blood by Automated count 08/25/2023 15:52:00 0 <=0 (/100 WBCs) Final Performing Location LAB[facility]ORY [facility] [place] - [address] [facility] [address]
--- OUTSIDE RECORDS SUMMARY | 2023-10-22 23:29 | External Medical Summary ---
Author Name Unknown Address Unknown Organization [id number]:LABORATORY [facility] [place] - [facility] [address] [facility] [address] Laboratory Report Ordering Provider Test Date Status BIN HERNANDEZ 08/25/2023 15:52:00 Final Observation Date Value Abnormality Reference (Units ) Status Retic, % (auto) 08/25/2023 15:52:00 2.65 Above high normal 0.80-1.90 (%) Final Reticulocytes, Absolute 08/25/2023 15:52:00 89.8 31.3-100.1 (K/uL) Final Reticulocyte fraction, immature 08/25/2023 15:52:00 30.7 Above high normal 2.5-20.6 (%) Final Reticulocyte HGB 08/25/2023 15:52:00 30.0 29.7-37.4 (pg) Final Performing Location LABORATORY [facility] [place] - [address] [facility] [address]
--- OUTSIDE RECORDS SUMMARY | 2023-10-22 23:29 | External Medical Summary ---
Author Name Unknown Address Unknown Organization K01:LABORATORY C - [address] [facility] [address] Laboratory Report Ordering Provider Test Date Status MARYBIN 08/25/2023 15:52:00 Final Observation Date Value Abnormality Reference (Units ) Status TSH 08/25/2023 15:52:00 0.59 0.27-4.20 (uIU/mL) Final Performing Location [facility] - [address] [facility] [address]
--- OUTSIDE RECORDS SUMMARY | 2023-10-22 23:29 | External Medical Summary ---
Author Name Unknown Address Unknown Organization K01:LABORATORY [facility] [place] - [address] [place] [address] Laboratory Report Ordering Provider Test Date Status JOSE STEEN 07/25/2023 11:08:22 Final Observation Date Value Abnormality Reference (Units ) Status Folic Acid 07/25/2023 11:08:22 >20.0 >4.5 (ng/ mL) Final Performing Location [facility] - [address] [place] [address]
--- OUTSIDE RECORDS SUMMARY | 2023-10-22 23:29 | External Medical Summary ---
Author Name Unknown Address Unknown Organization K01:LABORATORY [facility] - [address] [place] [address] Laboratory Report Ordering Provider Test Date Status BIN HERNANDEZ 08/25/2023 15:52:00 Final Observation Date Value Abnormality Reference (Units ) Status Ferritin 08/25/2023 15:52:00 24 13-150 (ng /mL) Final Performing Location LAB[facility] - [address] [place] [address]
--- OUTSIDE RECORDS SUMMARY | 2023-10-22 23:29 | External Medical Summary | Summary of Care ---
Author Name Unknown Organization [facility] Address [address] [place] [address] Phone [phone] Care Team Providers Care Production Team Advisor Name Role Phone Yimi Melgoza MD Primary Care Provider +1- [phone] Reason for Visit * Reason Comments Outpatient Testing Encounter Details Date Type Department Care Team (Late st Contact Info) Description 08/25/2023 3:50 PM EST Laboratory Laboratory, [facility] [address] [place] [address] [facility] [address] [place] [address] Arrived Allergies Active Allergy Reactions Criticality Noted Date [...] Route Frequency Start Date End Date Status jyurwmsimm-hovkphqtxhmwh-sxqw eine 50-325-40 mg per tab (Fioricet) 1 [...] have her US in [facility]. S/S of preeclampsia were reviewed. Umbilical [...] & Plan: Flu vaccine given 06/22/20 Antoinette Stevesn LPN with history of infertility 04/29/2020 04/18/2023 [...] money to get more. Never true 02/22/2023 Burgin Depression Scale Answer Date Recorded Burgin Depression Scale Total 1 07/25/2023 The thought [...] 09/12/2023 11:45 AM EST Office Visit Gynecology/Obstetrics Belleyeny James [address] [place] [address] Luann Ayoub CRNP [address] [place] [address] Health Maintenance Due Date Last Done Comments [...] filedocumented as of this encounter Care Teams Production Team Advisor Relationship Specialty Start Date End Date Yimi Melgoza MD [address] [place] [address] PCP - General 02/03/10 documented as of this encounter
--- OUTSIDE RECORDS SUMMARY | 2023-10-22 23:29 | External Medical Summary | Summary of Care ---
Author Name Unknown Organization [facility] Address [address] [place] [address] Phone [phone] Care Team Providers Care Student Dean Name Role Phone Yimi Melgoza MD Primary Care Provider +1- [phone] Reason for Visit * Reason Onset Date Comments Mycode Lab Reorder 06/23/2023 Encounter Details Date Type Department Care Team Description 06/23/2023 Orders Only Outcomes Research Department [address] [place] [address] Olive Mcallister CHRA MyCode Research Other*[id number]* Allergies Active Allergy Reactions Severity Noted Date Comments Amoxicillin 09/27/2001 Cephalosporins Hives,Itching 09/23/2010 Doxycycline Nausea/vomiting 04/07/2022 Penicillins 01/13/2010 documented as of this encounter (statuses as of 06/23/2023) Medications Medication Sig Dispensed Refills Start Date End Date Status + DHA 27-1 & 250 MG Oral Therapy Pack Take by mouth. 0 Active [employer]ToSpringest Ultra 2 w/Device KitIndications:Supervi nelli of other [...] Route Frequency Start Date End Date Status snujagzkrp-flwrhemiedisk-kiag eine 50-325-40 mg per tab (Fioricet) 1 TabletIndications:Migraine without aura and without status migrainosus, not intractable 1 Tablet OR Q4H PRN 05/18/2023 Active documented as of this encounter (statuses as of 06/23/2023) Active Problems Problem Noted Date Supervision of [...] She prefers to have her US in [facility]. S/S of preeclampsia were reviewed. Umbilical hernia 04/14/2015 LUQ abdominal pain 09/20/2011 PATELLOFEMORAL PAIN SYNDROME, LEFT 06/01 Pain in limb 06/01/2010 Menstruation, irregular 03/24/2010 Estimated Date of Delivery Comme nts Yes 10/25/2023 Based on last me nstrual period of 01/18/2023 documented as of this encounter (statuses as of 06/23/2023) Resolved Problems Problem Noted Date Resolved Date Trauma during 10/21/2020 04/18/20 23 Antepartum anemia complicating 020 04/18/2023 Overview: Hgb [...] as of this encounter (statuses as of 06/23/2023) Immunizations Name Administration Dates Next Due COVID-19 [...] as of this encounter Progress Notes * LOLLY Arango - 06/23/2023 1:54 PM EDT MyCode lab reordered. documented in this encounter Plan of Treatment Upcoming Encounters Date Type Specialty Care Team Description 07/25/2023 Laboratory Laboratory Sofi James [address] [facility] [place] [address] 07/25/2023 Imaging Radiology 07/25/2023 Office Visit Gynecology Obstetrics Backer, MARBELLA Leonard [address] [facility] [place] [address] Scheduled Orders Name Type Priority Associated Diagnoses Orde r Schedule MYCODE SUBSEQUENT ADULT Lab Routine MyCode Research Other*[id number] Every 6 Months for 2 Occurrences starting 06/23/2023 until 07/12/2024 Health Maintenance Due Date Last Done Comments Hepatitis B (3 of 3 - 3-dose series) 11/05/1998 09/10/1998, 05/28/1997 COVID-19 Vaccine (3 - Pfizer series) 03/26/2021 01/29/2021, 01/04/2021 Depression Screening 05/24/2021 05/24/2020 Influenza Vaccine (FLU shot) (#1) [...] as of this encounter Visit Diagnoses Diagnosis MyCode Research Other*[id number]- Primary documented in this encounter Care Teams Student Dean Relationship Specialty Start Date End Date Yimi Melgoza MD [address] [place], [place] [phone] PCP - General 02/03/10 documented as of this encounter
--- OUTSIDE RECORDS SUMMARY | 2023-10-22 23:29 | External Medical Summary ---
Author Name Unknown Address Unknown Organization K01:[place] [place] [address] [place] [address] Laboratory Report Ordering Provider Test Date Status BIN HERNANDEZ 08/25/2023 15:52:00 Final Observation Date Value Abnormality Reference (Units ) Status Vitamin B12 08/25/2023 15:52:00 231 Below low normal 2 32-1245 (pg/mL) Final Performing Location [facility] - [address] [place] [address]
--- OUTSIDE RECORDS SUMMARY | 2023-10-22 23:29 | External Medical Summary | Summary of Care ---
Author Name Unknown Organization [facility] Address [address] [place] [address] Phone [phone] Care Team Providers Care Kiln Repairer Name Role Phone Yimi Melgoza MD Primary Care Provider +1- [phone] Reason for Visit * Reason Comments Return Visit Encounter Details Date Type Department Care Team Description 05/23/2023 [facility] [address] [place] [address] Alissa Villanueva CRNP [address] [place] [address] Supervision of other normal , antepartum*; Obesity in , antepartum; Abnormal glucose tolerance in mother complicating Allergies Active Allergy Reactions Severity Noted Date Comments Amoxicillin 09/27/2001 Cephalosporins Hives,Itching 09/23/2010 Doxycycline Nausea/vomiting 04/07/2022 Penicillins 01/13/2010 documented as of this encounter (statuses as of 05/23/2023) Medications Medication Sig Dispensed Refills Start Date End Date Status + DHA 27-1 & 250 MG Oral Therapy Pack Take by mouth. 0 Active OneTouch Ultra 2 w/Device KitIndications:Supervi nelli of other [...] Route Frequency Start Date End Date Status cpkbqivwua-oknylqlmnwaru-gsrj eine 50-325-40 mg per tab (Fioricet) 1 [...] She prefers to have her US in [facility]. S/S of preeclampsia were reviewed. Umbilical hernia 04/14/2015 LUQ abdominal pain 09/20/2011 PATELLOFEMORAL PAIN SYNDROME, LEFT 06/01 Pain in limb 06/01/2010 Menstruation, irregular 03/24/2010 Estimated Date of Delivery Comme nts Yes 10/25/2023 Based on last me nstrual period of 01/18/2023 documented as of this encounter (statuses as of 05/23/2023) Resolved Problems Problem Noted Date Resolved Date Trauma during 10/21/2020 04/18/20 Antepartum anemia complicating 04/18/2023 Overview: Hgb 9.5 at 28 weeks [...] mRNA, LNP-s, No Pre serve, 2-Dose Series (DuckDuckGo) 01/29/2021,01/04/2021 DTaP - Dipth/Tet/Acell Pertussis 09/10/1998 HPV [...] Sign Reading Time Taken Comments Blood Pressure 104/64 05/23/2023 10:02 AM EDT Pulse - - Temperature - - Respiratory Rate - - Oxygen Saturation - - Inhaled Oxygen Concentration - - Weight 98 kg (216 lb) 05/23/2023 10:02 AM EDT Height 162.6 cm (5' 4") 05/23/2023 10:02 AM EDT Body Mass Index 37.08 05/23/2023 10:02 AM EDT documented in this encounter Progress Notes * MARBELLA Marx - 05/23/2023 10:30 AM EDT 17w6d No concerns. Completing 3hr GTT today. Declines MSAFP. ?quickening. Anatomy u/s with next visit. MARBELLA Marx * Georgia Patel LPN - 05/23/2023 10:09 AM EDT 17w6d Pt completing 3 hr gtt today pt denies any concerns documented in this encounter Plan of Treatment Pending Results Name Type Priority Associated Diagnoses Date /Time GESTATIONAL GLUCOSE TOLERANCE, 3 HOUR Lab Routine Abnormal glucose tolerance in mother complicating 05/23/2023 9:50 AM EDT Scheduled Orders Name Type Priority Associated Diagnoses Orde r Schedule US PREG SINGLE/1ST GEST, 14 WEEKS OR LATER Medical Imaging Routine Supervision of other normal , antepartum Expected: 06/23/2023 (Approximate), Expires: 06/23/2024 GESTATIONAL GLUCOSE TOLERANCE, 3 HOUR Lab Routine Abnormal glucose tolerance in mother complicating Expected: 05/24/2023 (Approximate), Expires: 05/23/2024 Health Maintenance Due Date Last Done Comments [...] or the puerperium, antepartum condition or complication Abnormal glucose tolerance in mother complicating Abnormal maternal glucose tolerance, complicating , childbirth, or the puerperium, unspecified as to episode of care documented in this encounter Care Teams Kiln Repairer Relationship Specialty Start Date End Date Yimi Melgoza MD [address] [place] [address] PCP - General 02/03/10 documented as of this encounter
--- OUTSIDE RECORDS SUMMARY | 2023-10-22 23:29 | External Medical Summary ---
Author Name Unknown Address Unknown Organization [id number]:[facility] - [address] [place] [address] Laboratory Report Ordering Provider Test Date Status ANALI ALEJANDRA 05/23/2023 10:57:23 Final Observation Date Value Abnormality Reference (Units ) Status Glucose [Mass/volume] in Serum or Plasma --1 hour post dose glucose 05/23/2023 10:57:23 175 70-179 (mg/dL) Final Performing Location [facility] 0 - [address] [place] [address]
--- OUTSIDE RECORDS SUMMARY | 2023-10-22 23:29 | External Medical Summary | Summary of Care ---
Author Name Unknown Organization [facility] Address [address] [place] [address] Phone [phone] Care Team Providers Care Threading Machine Tender Name Role Phone Yimi Melgoza MD Primary Care Provider +1- [phone] Reason for Visit * Reason Comments Return Visit Encounter Details Date Type Department Care Team Description 06/21/2023 Office Visit Gynecology/Obstetrics [facility] [address] [place] [address] Luann Ayoub CRNP [address] [place] [address] Supervision of other normal , antepartum*; Obesity in , antepartum Allergies Active Allergy Reactions Severity Noted Date Comments Amoxicillin 09/27/2001 Cephalosporins Hives,Itching 09/23/2010 Doxycycline Nausea/vomiting 04/07/2022 Penicillins 01/13/2010 documented as of this encounter (statuses as of 06/21/2023) Medications Medication Sig Dispensed Refills Start Date [...] Route Frequency Start Date End Date Status qixvivvdrf-dkmqxbelurvzo-bkot eine 50-325-40 mg per tab (Fioricet) 1 TabletIndications:Migraine without aura and without status migrainosus, not intractable 1 Tablet OR Q4H PRN 05/18/2023 Active documented as of this encounter (statuses as of 06/21/2023) Active Problems Problem Noted Date Supervision of [...] as of this encounter (statuses as of 06/21/2023) Resolved Problems Problem Noted Date Resolved Date [...] as of this encounter (statuses as of 06/21/2023) Immunizations Name Administration Dates Next Due COVID-19 [...] Sign Reading Time Taken Comments Blood Pressure 104/66 06/21/2023 11:24 AM EDT Pulse - - Temperature - - Respiratory Rate - - Oxygen Saturation - - Inhaled Oxygen Concentration - - Weight 97.5 kg (215 lb) 06/21/2023 11:24 AM EDT Height - - Body Mass Index 36.9 05/23/2023 10:02 AM EDT documented in this encounter Progress Notes * MARBELLA Topete - 06/21/2023 11:30 AM EDT 22 wks Feeling baby move. No bleeding/ctx. Has fioricet for migraines. Noticing RLS - already taking once daily magnesium for migraine prevention. Recommend pushing fluids, stretching before bed, Epsom salt baths. Can add evening magnesium dose. 4 week return - labs and growth scan next visit. MARBELLA Chavira * Chandni Randle LPN - 06/21/2023 11:25 AM EDT 22w0d Denies vaginal bleeding/rom + movement Restless legs ?increase mag Declines flu documented in this encounter Plan of Treatment Upcoming Encounters Date Type Specialty Care Team Description 07/25/2023 Laboratory Laboratory [facility] [address] [place] [address] 07/25/2023 Imaging Radiology 07/25/2023 Office Visit Gynecology Obstetrics Backer, MARBELLA Leonard [address] [place] [address] Scheduled Orders Name Type Priority Associated Diagnoses Orde r Schedule CBC WITH WBC DIFFERENTIAL AND ANEMIA REFLEX WORKUP Lab Routine Supervision of other normal , antepartum Expected: 07/21/2023 (Approximate), Expires: 06/21/2024 SYPHILIS ANTIBODY SCREEN WITH REFLEX TO RPR Lab Routine Supervision of other normal , antepartum Expected: 07/21/2023 (Approximate), Expires: 06/21/2024 GESTATIONAL GLUCOSE TOLERANCE, 3 HOUR Lab Routine Supervision of other normal , antepartum Expected: 07/21/2023 (Approximate), Expires: 06/21/2024 PREG FOLLOW-UP EACH FETUS Medical Imaging Routine Obesity in , antepartum Supervision of other normal , antepartum Expected: 07/21/2023 (Approximate), Expires: 07/21/2024 Health Maintenance Due Date Last Done Comments Hepatitis B (3 of 3 - 3-dose series) 11/05/1998 09/10/1998, 05/28/1997 COVID-19 Vaccine (3 - Pfizer series) 03/26/2021 01/29/2021, 01/04/2021 Depression Screening 05/24/2021 05/24/2020 Influenza Vaccine (FLU shot) (#1) 2023 10/06/2021, 06/22/2020, 06/22/2020 Pap Smear 03/15/2026 03/15/2023, 07/2 06/2020, 11/18/2013, Additional history exists Cervical Cancer Screening [...] or the puerperium, antepartum condition or complication documented in this encounter Care Teams Threading Machine Tender Relationship Specialty Start Date End Date Yimi Melgoza MD [address] [place] [address] PCP - General 02/03/10 documented as of this encounter
--- OUTSIDE RECORDS SUMMARY | 2023-10-22 23:29 | External Medical Summary ---
Author Name Unknown Address Unknown Organization [id number]:[facility]AT[facility] - [address] [place] [address] Laboratory Report Ordering Provider Test Date Status JOSE STEEN 07/25/2023 11:08:22 Final Observation Date Value Abnormality Reference (Units ) Status Iron 07/25/2023 11:08:22 63 33-151 (ug/dL) Final Iron-binding capacity 07/25/2023 11:08:22 467 Above high normal 250-425 (ug/dL) Final Transferrin Sat % 07/25/2023 11:08:22 13 Below low normal 15-55 (%) Final Performing Location LAB[facility]ATORY [facility] - [address] [place] [address]
--- OUTSIDE RECORDS SUMMARY | 2023-10-22 23:29 | External Medical Summary ---
Author Name Unknown Address Unknown Organization [id number]:[facility] - [address] [place] [address] Laboratory Report Ordering Provider Test Date Status JOSE STEEN 07/25/2023 11:08:22 Final Based on ACOG guideline, ges tational [...] Abnormality Reference (Units ) Status Glucose, fasting 07/25/2023 11:08:22 98 Above high no rmal 70-94 (mg/dL) Final Performing Location [facility]ORY [facility] - [address] [place] [address]
--- OUTSIDE RECORDS SUMMARY | 2023-10-22 23:29 | External Medical Summary ---
Author Name Unknown Address Unknown Organization [id number]:[facility]AT[facility] - [address] [place] [address] Laboratory Report Ordering Provider Test Date Status JOSE STEEN 07/25/2023 11:08:22 Final Observation Date Value Abnormality Reference (Units ) Status TSH 07/25/2023 11:08:22 0.58 0.27-4.20 (uIU/mL) Final Performing Location [facility] [address] [facility] [address]
--- OUTSIDE RECORDS SUMMARY | 2023-10-22 23:29 | External Medical Summary ---
Author Name Unknown Address Unknown Organization K01:[facility] - [address] [place] [address] Laboratory Report Ordering Provider Test Date Status ENIOJOSE MURRAY 07/25/2023 11:08:22 Final Observation Date Value Abnormality Reference (Units ) Status Ferritin 07/25/2023 11:08:22 37 13-150 (ng /mL) Final Performing Location [facility] - [address] [place] [address]
--- OUTSIDE RECORDS SUMMARY | 2023-10-22 23:29 | External Medical Summary ---
Author Name Unknown Address Unknown Organization K01:LAB[facility]ATORY [facility] - [address] [place] [id number] Laboratory Report Ordering Provider Test Date Status JOSE STEEN 07/25/2023 13:41:48 Final Observation Date Value Abnormality Reference (Units) Status Bacteria identified in Specimen by Culture 07/25/2023 13:41:48 No significant growth Final Test: Culture, Urine, Quanti tative
Specimen Source: Urine, Clean Catch
Specimen Type: Urine
Specimen Date: 07/25/2023 1:41 PM
Result Date: 07/26/2023 1:10 PM
Result Status: Final result
Resulting Lab: LABORATORY [facility]
[address]
[facility] [address]

CULTURE

No significant growth

null Performing Location LABORATORY [facility] - [address] [facility] [address]
--- OUTSIDE RECORDS SUMMARY | 2023-10-22 23:29 | External Medical Summary ---
Author Name Unknown Address Unknown Organization K01:LABORATORY [facility] - [address] [place], [place] [address] Laboratory Report Ordering Provider Test Date Status JOSE STEEN 07/25/2023 11:08:22 Final Observation Date Value Abnormality Reference (Units ) Status Treponema pallidum Ab [Presence] in Serum by Immunoassay 07/25/2023 11:08:22 Nonreactive Nonreactive Final No serologic evidence of syp hilis. No additional testing clinicially indicated at this time. Consider repeat testing in 2-4 weeks if acute or primary syphilis is suspected. Performing Location LABORATORY [facility] - [address] [place], [place] [address]
--- OUTSIDE RECORDS SUMMARY | 2023-10-22 23:29 | External Medical Summary ---
Author Name Unknown Address Unknown Organization K01:LABORATORY [facility] - [facility] [address] [place] [address] Laboratory Report Ordering Provider Test Date Status MARYBIN WARD 08/25/2023 15:52:00 Final Observation Date Value Abnormality Reference (Units ) Status Creatinine 08/25/2023 15:52:00 0.5 0.5-1.0 (mg/dL) Final Glomerular filtration rate/1.73 sq M.predicted [Volume Rate/Area] in Serum, Plasma or Blood by Creatinine-based formula (CKD-EPI) 08/25/2023 15:52:00 >90 >=60 (mL/min) Final eGFR is calculated based on the CKD-EPI 2020 equation Performing Location LABORATORY [facility] - [facility] [address] [place] [address]
--- OUTSIDE RECORDS SUMMARY | 2023-10-22 23:29 | External Medical Summary ---
Author Name Unknown Address Unknown Organization K01:LAB[facility]ATORY [facility] - [address] [place] [address] Laboratory Report Ordering Provider Test Date Status BIN HERNANDEZ 08/25/2023 15:52:00 Final Observation Date Value Abnormality Reference (Units ) Status Iron 08/25/2023 15:52:00 52 33-151 (ug/dL) Final Iron-binding capacity 08/25/2023 15:52:00 536 Above high normal 250-425 (ug/dL) Final Transferrin Sat % 08/25/2023 15:52:00 10 Below low normal 15-55 (%) Final Performing Location LAB[facility]ATORY [facility] - [address] [place] [address]
--- OUTSIDE RECORDS SUMMARY | 2023-10-22 23:29 | External Medical Summary | Summary of Care ---
Author Name Unknown Organization [facility] Address [address] [place] [address] Phone [phone] Care Team Providers Care Educational Fundraising Director Name Role Phone Yimi Melgoza MD Primary Care Provider +1- [phone] Reason for Visit * Reason Onset Date Comments Pre Cert/Prior Auth 07/31/2023 VITRON Encounter Details Date Type Department Care Team (Late st Contact Info) Description 07/31/2023 Telephone Gynecology/Obstetrics [facility] [address] [place] [address] Luann Ayoub CRNP [address] [facility] [place] [address] Pre Cert/Prior Auth ( VITRON) Allergies Active Allergy Reactions Criticality Noted Date Comments Amoxicillin 09/27/2001 Cephalosporins Hives,Itching 09/23/2010 Doxycycline Nausea/vomiting 04/07/2022 Penicillins 01/13/2010 documented as of this encounter (statuses as of 08/09/2023) Medications Medication Sig Dispensed Refills Start Date [...] Active Vitamin B-12 1000 MCG Oral Tablet (Cyanocobalamin)In dications:Antepart um anemia complicating Take 1 Tablet by mouth in the morning. 30 Tablet 3 07/26/2023 Active Vitamin C 250 MG Oral Tablet Chewable Take 1 Tablet by mouth in the morning. 0 Active Vitron-C 65-125 MG Oral Tablet (Iron-Vitamin C 65-125 mg per tab) Take 1 Tablet by mouth in the morning and 1 Tablet before bedtime. 60 Tablet 3 07/31/2023 08/09/2023 Discontinued Hospital, Clinic, or Other Facility Administered Medication Ordered Dose Route Frequency Start Date End Date Status izvwbmdirw-uhqerihkiqqrr-ukzu eine 50-325-40 mg per tab (Fioricet) 1 TabletIndications:Migraine without aura and without status migrainosus, not intractable 1 Tablet OR Q4H PRN 05/18/2023 Active documented as of this encounter (statuses as of 08/09/2023) Active Problems Problem Noted Date Diagnosed Date [...] She prefers to have her US in [facility]. S/S of preeclampsia were reviewed. Umbilical hernia 04/14/2015 LUQ abdominal pain 09/20/2011 PATELLOFEMORAL PAIN SYNDROME, LEFT 06/01/2010 Pain in limb 06/01/2010 Menstruation, irregular 03/24/2010 Estimated Date of Delivery Comme nts Yes 10/25/2023 Based on last la nstrual period of 01/18/2023 documented as of this encounter (statuses as of 08/09/2023) Resolved Problems Problem Noted Date Diagnosed Date [...] as of this encounter (statuses as of 08/09/2023) Immunizations Name Administration Dates Next Due COVID-19 mRNA, LNP-s, No Pre serve, 2-Dose Series (Visonys) 01/29/2021,01/04/2021 DTaP Dipth/Tet/Acell Pertussis (Infanrix), Peds 09/10/1998 [...] money to get more. Never true 02/22/2023 [place] Depression Scale Answer Date Recorded [place] Depression Scale Total 1 07/25/2023 The thought [...] encounter Miscellaneous Notes * Telephone Encounter - Luann Ayoub CRNP - 08/09/2023 10:30 AM EST Sounds good, thanks! MARBELLA Chavira * Telephone Encounter - Valeria Still RN - 08/09/2023 10:28 AM EST Called patient and made aware. She states what she has been doing is taking vit C supplement that was already sent in and take slow FE 137mg QID that she picked up over the counter. Asking if this isokay to continue since she seems to be tolerating it well. * Telephone Encounter - Luann Ayoub CRNP - 08/09/2023 10:18 AM EST Received letter from [employer] stating that Vitron C is not covered under current benefits as it is available OTC. She can obtain this, or if she wants an rx, let me know and will prescribe iron and vit C separately. Thanks. MARBELLA Chavira * Telephone Encounter - Zandra De Jesus RN - 07/31/2023 9:25 AM EDT Women's Medicine Pre-Cert Request Medication/Disease State Information: Medication: vitron C Oral/Inhaler/Self-administered injection Medication- [place] [id number] Diagnosis (including ICD-10): [place] complicating O99.019 Medication(s) Tried/Failed/Contraindicated: ferrous sulfate See corresponding visit note(s) for additional supporting clinical information. Office Information: Prescriber: MARBELLA Juarez documented in this encounter Plan of Treatment Upcoming Encounters Date Type Department Care Team (Late st Contact Info) Description 08/25/2023 2:15 PM EST Imaging Radiology [facility] [place] [address] [facility] [place] [address] 08/25/2023 3:30 PM EST Office Visit Gynecology/Obstetrics [facility] [address] [facility] [place] [address] Alex Shah MD [address] [place] [address] Health Maintenance Due Date Last Done Comments [...] filedocumented as of this encounter Care Teams Educational Fundraising Director Relationship Specialty Start Date End Date Yimi Melgoza MD [address] [facility] [address] PCP - General 02/03/10 documented as of this encounter
[2023-10-23] MEDS ORDERED: OXYTOCIN 30 UNITS/NSS 30 UNITS/500 ML BAG IV PRN ×3 (00:16→08:58)
[2023-10-23] MEDS ORDERED: LIDOCAINE 1% LOCAL 20 ML VIAL INFIL PRN (00:16)
[2023-10-23 00:41] LABS: Hematocrit (blood only) 35.1 % (37.0-47.0); Hemoglobin 11.4 g/dl (12.0-16.0); Mean Corpuscular Hemoglobin 28.3 pg (25.0-34.0); Mean Corpuscular Hgb Conc 32.5 g/dL (32.0-36.0); Mean Corpuscular Volume 87.1 fL (80.0-100.0); Platelet Count 213 K/uL (130-400); RDW Coefficient of Variation 14.5 % (11.5-14.5); RDW Standard Deviation 46.5 fL (36.4-46.3); Red Blood Count 4.03 M/uL (4.20-5.40)
--- NOTE | 2023-10-23 00:59 | Obstetrical Progress Note ---
Date of Service October 23, 2023 Assessment & Plan (1) PROM (premature rupture of membranes): Plan: PROM at 09:00HRS Afebrile AmniSure +ve No gross pooling Irreg ctx VE by Nurse 3cm FHR; CAT1 Bedside sono; VT Admit and start Pitocin augmentation Admission and Anticipated Discharge Date Admission Date: October 23, 2023 Results & Data Vital Signs (Past 12 Hours) Vital Signs Temp Pulse Resp BP 10/22/23 23:38 99 H 130/78 10/22/23 23:36 37.0 C 18
--- NOTE | 2023-10-23 01:02 | Obstetrical Progress Note ---
Date of Service October 23, 2023 Assessment & Plan (1) PROM (premature rupture of membranes): Plan: EFW by aguilar; 8-9lbs Admission and Anticipated Discharge Date Admission Date: October 23, 2023 Results & Data Vital Signs (Past 12 Hours) Vital Signs Temp Pulse Resp BP 10/22/23 23:38 99 H 130/78 10/22/23 23:36 37.0 C 18
[2023-10-23] MEDS: LACTATED RINGER'S 1,000 ML IV PRN ×2 (01:19→03:41)
[2023-10-23] MEDS ORDERED: fentaNYL citrate PF 100 MCG/2 ML VIAL ONE (02:49)
[2023-10-23] MEDS ORDERED: ePHEDrine sulfate 50 MG/ML AMP ONE (02:49)
[2023-10-23] MEDS ORDERED: LIDOCAINE 2%/EPINEPHRINE 1:200,000 20 ML PF ONE (02:50)
[2023-10-23] MEDS ORDERED: SODIUM CHLORIDE 0.9% PF INJ 10 ML VIAL ONE (02:50)
[2023-10-23] MEDS ORDERED: fentANYL 2 MCG/ML BUPIVacaine 0.125%-NSS 100ML BAG ONE (02:50)
[2023-10-23] MEDS ORDERED: BUPIVACAINE 0.25% PF 30 ML VIAL ONE (02:50)
--- NOTE | 2023-10-23 03:56 | Anesthesiology Consultation ---
Date of Service October 23, 2023 Assessment & Plan Chart Review Chart Review: Acceptable Risk for Labor Epidural Consults Requested none History Height/Weight Height: 5 ft 4 in Weight: 99.79 kg Allergies Allergy/AdvReac Type Severity Reaction Status Date / Time amoxicillin Allergy Nausea Verified 10/22/23 23:52 Cephalosporins Allergy RASH Verified 06/14/12 17:30 Penicillins Allergy HIVES Verified 06/14/12 17:30 doxycycline AdvReac Mild Nausea Verified 10/22/23 23:51 Medications Home Medications Medication Instructions Recorded Confirmed Last Taken Iron (ferrous sulfate) 90 mg PO DAILY 11/16/20 10/22/23 11/15/20 20:00 1 tab PO DAILY 11/16/20 10/22/23 11/15/20 20:00 ascorbic acid (vitamin C) 250 mg 250 mg PO BID 10/22/23 10/22/23 10/22/23 tablet (Vitamin C) cyanocobalamin (vitamin B-12) 1,000 mcg PO DAILY 10/22/23 10/22/23 Unknown 1,000 mcg tablet (Vitamin B-12) Active Medications Generic Name Dose Route Start Last Admin Trade Name Freq PRN Reason Stop Dose Admin Lactated Ringer's 1,000 mls @ 125 mls/hr 10/23/23 00:16 10/23/23 03:41 Lr IV 10/25/23 00:15 125 mls/hr .Q8H PRN Administration L&D Protocol Protocol Oxytocin 30 units in 500 mls @ 4 mls/hr 10/23/23 01:01 10/23/23 02:00 Pitocin 30 Units/Nss IV 10/25/23 01:00 0.24 units/hr .Q24H PRN 4 mls/hr Labor Induction/Augmentation Titration Protocol 0.24 UNITS/HR Past Medical History Medical History Cervical polyp Knee arthropathy Umbilical hernia Social History Smoking Status: Never smoker Hx Alcohol Use: No Hx Substance Use: No Physical Exam Vital Signs Last Vital Signs Temp 36.8 C 10/23/23 01:25 Pulse 108 H 10/23/23 03:55 Resp 18 10/23/23 01:25 BP 134/70 10/23/23 03:55 Pulse Ox 99 10/23/23 03:51 Testing Laboratory Results 10/23/23 00:29 Blood Type O Positive 10/23/23 00:29 Antibody Screen NEGATIVE 10/23/23 00:29
[2023-10-23] MEDS ORDERED: BUPIVACAINE 0.25% PF 30 ML VIAL EPI PRN (03:58)
[2023-10-23] MEDS ORDERED: BUPIVACAINE 0.25% PF 30 ML VIAL EPI STA (03:58)
[2023-10-23] MEDS ORDERED: fentANYL 2 MCG/ML BUPIVacaine 0.125%-NSS 100ML BAG EPI PRN (03:58)
[2023-10-23] MEDS ORDERED: fentaNYL citrate PF 100 MCG/2 ML VIAL EPI STA (03:58)
[2023-10-23] MEDS ORDERED: SODIUM CHLORIDE 0.9% PF INJ 10 ML VIAL EPI PRN (03:58)
[2023-10-23] MEDS ORDERED: ROPIVACAINE 0.5% PF 5 MG/ML 20 ML VIAL EPI PRN (03:58)
[2023-10-23] MEDS ORDERED: diphenhydrAMINE 50 MG/ML VIAL IV PRN (03:58)
[2023-10-23] MEDS ORDERED: LIDOCAINE 2% MPF LOCAL 5 ML VIAL EPI PRN (03:58)
[2023-10-23] MEDS ORDERED: fentaNYL citrate PF 100 MCG/2 ML VIAL EPI PRN (03:58)
[2023-10-23] MEDS ORDERED: NALOXONE HCL 0.4 MG/1 ML VIAL/CARP IV PRN (03:58)
[2023-10-23] MEDS ORDERED: LIDOCAINE 2%/EPINEPHRINE 1:200,000 20 ML PF EPI STA (03:58)
[2023-10-23] MEDS ORDERED: SODIUM CHLORIDE 0.9% PF INJ 10 ML VIAL EPI STA (03:58)
[2023-10-23] MEDS ORDERED: NALBUPHINE HCL 5 MG in SYRINGE 0 ML IV PRN (03:58)
[2023-10-23] MEDS ORDERED: NALOXONE HCL 1 MG in SODIUM CHLORIDE 0.9% 1,000 ML IV PRN (03:58)
[2023-10-23] MEDS ORDERED: ePHEDrine sulfate 50 MG/ML AMP IV PRN (03:58)
--- NOTE | 2023-10-23 07:35 | Obstetrical Progress Note ---
Date of Service October 23, 2023 Assessment & Plan (1) PROM (premature rupture of membranes): Plan: Pt doing well FHR; CAT1 Ctx ; 1-3 Pit 6Mu VE' 10/100/-1 pt has no urge to push will start pushing soon Admission and Anticipated Discharge Date Admission Date: October 23, 2023 Results & Data Vital Signs (Past 12 Hours) Vital Signs Temp Pulse Resp BP Pulse Ox 10/23/23 07:31 99 H 93 10/23/23 07:26 85 100 10/23/23 07:24 85 89 L 10/23/23 07:21 76 99 10/23/23 07:20 73 129/70 10/23/23 07:16 88 98 10/23/23 07:14 87 91 10/23/23 07:11 87 96 10/23/23 07:09 36.8 C 18 10/23/23 07:08 84 91 10/23/23 07:06 89 100 10/23/23 07:04 86 123/67 10/23/23 07:03 85 119/64 10/23/23 07:01 81 100 10/23/23 06:56 86 97 10/23/23 06:51 84 120/64 100 10/23/23 06:46 85 100 10/23/23 06:41 87 100 10/23/23 06:36 91 H 99 10/23/23 06:35 87 132/63 10/23/23 06:31 89 100 10/23/23 06:26 87 100 10/23/23 06:21 84 100 10/23/23 06:20 81 120/66 10/23/23 06:16 100 10/23/23 06:16 84 10/23/23 06:16 86 93 10/23/23 06:11 84 100 10/23/23 06:06 92 H 100 10/23/23 06:05 78 119/70 10/23/23 06:01 36.5 C 86 18 100 10/23/23 05:59 91 H 92 10/23/23 05:56 81 100 10/23/23 05:51 90 99 10/23/23 05:50 93 H 130/71 10/23/23 05:46 88 99 10/23/23 05:41 85 99 10/23/23 05:36 79 99 10/23/23 05:35 80 129/67 10/23/23 05:33 93 H 94 10/23/23 05:31 95 H 100 10/23/23 05:26 88 99 10/23/23 05:21 89 99 10/23/23 05:20 85 121/74 10/23/23 05:16 84 99 10/23/23 05:11 93 H 100 10/23/23 05:06 100 10/23/23 05:06 86 10/23/23 05:06 84 122/73 10/23/23 05:01 83 99 10/23/23 05:00 18 10/23/23 05:00 18 10/23/23 04:56 92 H 100 10/23/23 04:51 87 98 10/23/23 04:49 85 126/73 10/23/23 04:46 87 98 10/23/23 04:41 84 98 10/23/23 04:36 86 100 10/23/23 04:35 86 127/71 10/23/23 04:31 90 99 10/23/23 04:26 94 H 99 10/23/23 04:21 99 10/23/23 04:21 92 H 10/23/23 04:21 87 129/61 10/23/23 04:16 88 99 10/23/23 04:11 100 H 99 10/23/23 04:10 18 10/23/23 04:10 36.8 C 18 10/23/23 04:06 110 H 99 10/23/23 04:03 90 141/70 H 10/23/23 04:01 104 H 154/70 H 99 10/23/23 03:59 104 H 139/65 10/23/23 03:57 93 H 123/66 10/23/23 03:56 112 H 100 10/23/23 03:55 18 10/23/23 03:55 108 H 134/70 10/23/23 03:53 99 H 137/73 10/23/23 03:51 99 10/23/23 03:51 100 H 10/23/23 03:51 96 H 137/77 10/23/23 03:50 18 10/23/23 03:49 90 137/82 10/23/23 03:47 89 139/85 10/23/23 03:46 99 H 136/108 H 100 10/23/23 03:45 18 10/23/23 03:41 80 100 10/23/23 03:36 84 100 10/23/23 03:31 83 100 10/23/23 03:26 88 100 10/23/23 03:14 77 138/77 10/23/23 02:07 90 131/85 10/23/23 01:25 36.8 C 18 10/22/23 23:38 99 H 130/78 10/22/23 23:36 37.0 C 18
--- NOTE | 2023-10-23 08:34 | Obstetrical Progress Note ---
Date of Service October 23, 2023 Assessment & Plan Admission and Anticipated Discharge Date Admission Date: October 23, 2023 Subjective Patient is seen and examined. Reviewed her records and confirmed with her 33 yo at 39.5 wks presented yesterday with PROM at 9 am, slow leak, did not present until 11 pm Her has been uncomplicated. VE: 10/ 100%/+1 to +2 with contraction, tried pushing earlier but had pain in her left eye. No pain nor RAMIREZ no change in vision, N&V FHR 140's with early decels with contractions, with quick recovery, good variability in between. Continue to monitor and labor down Results & Data Vital Signs (Past 12 Hours) Vital Signs Temp Pulse Resp BP Pulse Ox 10/23/23 08:26 86 100 10/23/23 08:24 91 H 92 10/23/23 08:21 83 99 10/23/23 08:20 83 135/80 10/23/23 08:16 81 100 10/23/23 08:13 80 144/63 H 10/23/23 08:11 91 H 100 10/23/23 08:06 97 10/23/23 08:06 99 H 10/23/23 08:06 97 H 91 10/23/23 08:04 102 H 142/73 H 10/23/23 08:01 106 H 100 10/23/23 07:56 98 H 100 10/23/23 07:51 84 98 10/23/23 07:46 76 100 10/23/23 07:41 83 100 10/23/23 07:36 100 10/23/23 07:36 83 10/23/23 07:36 78 131/76 10/23/23 07:31 99 H 93 10/23/23 07:26 85 100 10/23/23 07:24 85 89 L 10/23/23 07:21 76 99 10/23/23 07:20 73 129/70 10/23/23 07:16 88 98 10/23/23 07:14 87 91 10/23/23 07:11 87 96 10/23/23 07:09 36.8 C 18 10/23/23 07:08 84 91 10/23/23 07:06 89 100 10/23/23 07:04 86 123/67 10/23/23 07:03 85 119/64 10/23/23 07:01 81 100 10/23/23 06:56 86 97 10/23/23 06:51 84 120/64 100 10/23/23 06:46 85 100 10/23/23 06:41 87 100 10/23/23 06:36 91 H 99 10/23/23 06:35 87 132/63 10/23/23 06:31 89 100 10/23/23 06:26 87 100 10/23/23 06:21 84 100 10/23/23 06:20 81 120/66 10/23/23 06:16 100 10/23/23 06:16 84 10/23/23 06:16 86 93 10/23/23 06:11 84 100 10/23/23 06:06 92 H 100 10/23/23 06:05 78 119/70 10/23/23 06:01 36.5 C 86 18 100 10/23/23 05:59 91 H 92 10/23/23 05:56 81 100 10/23/23 05:51 90 99 10/23/23 05:50 93 H 130/71 10/23/23 05:46 88 99 10/23/23 05:41 85 99 10/23/23 05:36 79 99 10/23/23 05:35 80 129/67 10/23/23 05:33 93 H 94 10/23/23 05:31 95 H 100 10/23/23 05:26 88 99 10/23/23 05:21 89 99 10/23/23 05:20 85 121/74 10/23/23 05:16 84 99 10/23/23 05:11 93 H 100 10/23/23 05:06 100 10/23/23 05:06 86 10/23/23 05:06 84 122/73 10/23/23 05:01 83 99 10/23/23 05:00 18 10/23/23 05:00 18 10/23/23 04:56 92 H 100 10/23/23 04:51 87 98 10/23/23 04:49 85 126/73 10/23/23 04:46 87 98 10/23/23 04:41 84 98 10/23/23 04:36 86 100 10/23/23 04:35 86 127/71 10/23/23 04:31 90 99 10/23/23 04:26 94 H 99 10/23/23 04:21 99 10/23/23 04:21 92 H 10/23/23 04:21 87 129/61 10/23/23 04:16 88 99 10/23/23 04:11 100 H 99 10/23/23 04:10 18 10/23/23 04:10 36.8 C 18 10/23/23 04:06 110 H 99 10/23/23 04:03 90 141/70 H 10/23/23 04:01 104 H 154/70 H 99 10/23/23 03:59 104 H 139/65 10/23/23 03:57 93 H 123/66 10/23/23 03:56 112 H 100 10/23/23 03:55 18 10/23/23 03:55 108 H 134/70 10/23/23 03:53 99 H 137/73 10/23/23 03:51 99 10/23/23 03:51 100 H 10/23/23 03:51 96 H 137/77 10/23/23 03:50 18 10/23/23 03:49 90 137/82 10/23/23 03:47 89 139/85 10/23/23 03:46 99 H 136/108 H 100 10/23/23 03:45 18 10/23/23 03:41 80 100 10/23/23 03:36 84 100 10/23/23 03:31 83 100 10/23/23 03:26 88 100 10/23/23 03:14 77 138/77 10/23/23 02:07 90 131/85 10/23/23 01:25 36.8 C 18 10/22/23 23:38 99 H 130/78 10/22/23 23:36 37.0 C 18
[2023-10-23] MEDS ORDERED: HYDROCORTISONE ACETATE 25 MG SUPP PR PRN (08:58)
[2023-10-23] MEDS ORDERED: ACETAMINOPHEN 325 MG TAB PO PRN (08:58)
[2023-10-23] MEDS ORDERED: DIPHTHER/TETAN/PERTUS Vaccine (Tdap, Adol/Adult) 0.5mL IM ONE (08:58)
[2023-10-23] MEDS ORDERED: bisacodyL 10 MG SUPP PR PRN (08:58)
[2023-10-23] MEDS ORDERED: MEASLES, MUMPS & RUBELLA VIRUS VACCINE (MMR) VIAL SQ ONE (08:58)
[2023-10-23] MEDS ORDERED: BENZOCAINE 20% SPRY 85 APPLN/85 GM CAN EXT PRN (08:58)
--- NOTE | 2023-10-23 09:01 | Delivery Summary ---
Vaginal Delivery Summary Date of Service October 23, 2023 Vaginal Delivery Summary Patient was found to be fully dilated and desires to push. She pushed with only 1 contraction and delivered the head without difficulty and then shoulders with minimal traction. There was a nuchal cord around the neck x 1 which was reduced. The baby was handed off to the mother. The cord was clampedx2 and cut at 1 minute. The vagina and perineum were checked and found to have first degree perineal laceration. It was repaired with 2/0 vicryl. The placenta was delivered spontaneously as intact and complete. The uterus was explored and found to be empty. EBL was 100 ml. The fundus was firm The baby was a viable female , Apgars 8/9, the weight is pending The mother and the baby tolerated the procedure well. No complications happened and I was present during whole procedure.
--- NOTE | 2023-10-23 10:10 | Anesthesia Procedure Note ---
Date of Service October 23, 2023 Anesthesia Post Epidural Note Vital Signs Vital Signs: Temp Pulse Resp BP Pulse Ox 36.8 C 85 18 114/64 100 10/23/23 07:09 10/23/23 10:04 10/23/23 07:09 10/23/23 10:04 10/23/23 08:56 Notes Mental Status: alert / awake / arousable Nausea / Vomiting: adequately controlled Pain: adequately controlled Airway Patency, RR, SpO2: stable & adequate BP & HR: stable & adequate Hydration State: stable & adequate Neuraxial Anesthesia: was administered and sensory block is resolving Anesthetic Complications: no major complications apparent and Pt Satisfied with anesthetic care Epidural: Removed without complications and With tip intact
[2023-10-23] MEDS: IBUPROFEN 600 MG TAB PO PRN ×2 (13:29→21:22)
[2023-10-23] MEDS: DOCUSATE SODIUM 100 MG CAP PO SCH (21:22)
[2023-10-24] MEDS: IBUPROFEN 600 MG TAB PO PRN ×2 (03:14→08:41)
[2023-10-24 07:12] LABS: Hemoglobin 10.7 g/dl (12.0-16.0); Mean Corpuscular Hemoglobin 28.4 pg (25.0-34.0); Mean Corpuscular Hgb Conc 32.4 g/dL (32.0-36.0); Mean Corpuscular Volume 87.5 fL (80.0-100.0); Mean Platelet Volume 10.2 fL (9.4-12.4); Platelet Count 179 K/uL (130-400); RDW Coefficient of Variation 14.7 % (11.5-14.5); RDW Standard Deviation 47.2 fL (36.4-46.3); Red Blood Count 3.77 M/uL (4.20-5.40)
[2023-10-24] MEDS ORDERED: FERROUS SULFATE 325 MG TAB PO SCH (08:00)
[2023-10-24] MEDS ORDERED: PRENATAL VITAMIN 1 TAB PO SCH (08:00)
[2023-10-24] MEDS: DOCUSATE SODIUM 100 MG CAP PO SCH (08:41)
--- NOTE | 2023-10-24 09:35 | Obstetrical Progress Note ---
Date of Service October 24, 2023 Subjective Ambulation: ambulating normally Voiding: no voiding problems Passing Gas:: Yes Diet Tolerance:: regular diet Lochia:: Small Feeding Type:: breast feeding Current Pain Level(1-10): 0 doing well. wants to go home Physical Exam Constitutional WD/WN, vitals as above Gastrointestinal (Abdomen) Inspection/Auscultation: abdomen normal to inspection fundus firm. abdomen soft and non-tender Musculoskeletal Extremities: extremities normal to inspection Skin no rashes, warm and dry Neurologic patellar DTR's 2+ bilat, sensation intact Psychiatric A+Ox3, euthymic affect Results & Data Vital Signs (Past 12 Hours) Vital Signs Temp Pulse Resp BP Pulse Ox O2 Del Method 10/24/23 08:45 36.5 C 80 16 107/69 Room Air 10/24/23 03:15 36.7 C 76 18 110/74 98 Room Air 10/24/23 00:10 36.8 C 91 H 18 114/80 98 Room Air Laboratory Results 10/23/23 10/23/23 10/24/23 00:06 00:29 06:51 WBC 9.40 9.80 RBC 4.03 L 3.77 L Hgb 11.4 L 10.7 L Hct 35.1 L 33.0 L MCV 87.1 87.5 MCH 28.3 28.4 MCHC 32.5 32.4 RDW Std Deviation 46.5 H 47.2 H RDW Coeff of Jamil 14.5 14.7 H Plt Count 213 179 MPV 10.0 10.2 Amniotic Protein POS Blood Type O Positive Antibody Screen NEGATIVE
[2023-10-24] MEDS ORDERED: bisacodyL 5 MG TABEC PO SCH (20:00)
== END 2023-10-24 14:30 | disposition home or self-care (01) | DRG 807 ==
LOC: OPB 23:22 → 4S1 23:23 → 4E2 10-23 11:15